=== PATIENT | male | born 1985 | race Caucasian/White ===

== ENCOUNTER 2019-03-19 19:37 | Inpatient (IN) | payer MEDICAID ==
[2019-03-19] MEDS ORDERED: Sodium Chloride 0.9% 10 ML Syringe FLUSH PRN (19:54)
[2019-03-19] MEDS ORDERED: Vancomycin 1.75 GM in Sodium Chloride 0.9% 500 ML IV ONE (19:58)
[2019-03-19] MEDS ORDERED: Ondansetron 4 MG/2 ML SDV IVPUSH ONE (20:00)
[2019-03-19] MEDS ORDERED: Iopamidol 612 MG/ML 100 ML Bottle IVPUSH ONE (20:02)
[2019-03-19] MEDS ORDERED: Diatrizoate Meglumine/Diatrizoate Sodium 37% 120 ML Bottle PO ONE (20:02)
--- NOTE | 2019-03-19 20:08 | EDM.PDOC ---
ED HPI GENERAL MEDICAL PROBLEM - General Chief Complaint: Abdominal Pain Stated Complaint: [facility] Time Seen by Provider: 03/19/19 19:42 Source of Information: Reports: Patient, EMS History Limitations: Reports: No Limitations - History of Present Illness INITIAL COMMENTS - FREE TEXT/NARRATIVE: The patient presents by [facility] for nausea and vomiting. He says this all started a couple weeks ago. He said he ate some enchiladas 2 weeks ago and then he developed nausea, vomiting, and upper abdominal pain. He has not been able to keep much down for the past couple of weeks. He has shortness of breath. He has some congestion. He has a slight cough. He has a low grade temp. He has hypoxia and he has shortness of breath. He has no chest pain. He does have pain to the epigastric area. He has no dysuria or hematuria. He says he is still making urine. His lips are dry. He has erythema and edema to his right forearm and left foot. 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 He has not injected since. Onset: Gradual Duration: Week(s): (2) Location: Reports: Abdomen Quality: Reports: Ache Severity: Moderate Improves with: Reports: None Worsens with: Reports: None Associated Symptoms: Reports: Cough, Fever/Chills, Shortness of Breath. Denies : Confusion, Chest Pain, Headaches, Nausea/Vomiting Middle Abdominal Pain Score (Numeric/FACES): 10 - Related Data Allergies Allergy/AdvReac Type Severity Reaction Status Date / Time No Known Allergies Allergy Verified 03/19/19 19:44 Home Meds: Home Meds . [No Known Home Meds] 03/19/19 [History] Past Medical History - Past Health History Medical/Surgical History: Denies Medical/Surgical History Social & Family History - Tobacco Use Smoking Status *Q: Current Every Day Smoker Years of Tobacco use: 13 Packs/Tins Daily: 0.5 - Alcohol Use Days Per Week of Alcohol Use: 2 Number of Drinks Per Day: 5 Total Drinks Per Week: 10 - Recreational Drug Use Recreational Drug Use: No ED ROS GENERAL - Review of Systems Review Of Systems: See Below Constitutional: Reports: Fever, Chills HEENT: Reports: Other (congestion) Respiratory: Reports: Shortness of Breath, Cough Cardiovascular: Reports: No Symptoms Endocrine: Reports: No Symptoms GI/Abdominal: Reports: Abdominal Pain, Nausea, Vomiting. Denies: Diarrhea : Reports: No Symptoms Musculoskeletal: Reports: No Symptoms Skin: Reports: No Symptoms ED EXAM, GI/ABD - Physical Exam Exam: See Below Exam Limited By: No Limitations General Appearance: Alert, Mild Distress Ears: Normal External Exam Nose: Normal Inspection Throat/Mouth: Other (Dry mucus membranes) Head: Atraumatic, Normocephalic Neck: Normal Inspection Respiratory/Chest: No Respiratory Distress, Decreased Breath Sounds Cardiovascular: No Edema, No Murmur, Tachycardia GI/Abdominal Exam: Soft, No Organomegaly, No Mass, Tender (Moderate tenderness to the epigastric region) Back Exam: Normal Inspection Extremities: Other (Erythema to the right forearm and left anterior foot) Neurological: Alert, Oriented, No Motor/Sensory Deficits Course - Vital Signs Last Recorded V/S: Last Vital Signs Temp 102.1 F H 03/19/19 22:21 Pulse 124 H 03/19/19 19:42 Resp 16 03/19/19 19:42 BP 128/95 H 03/19/19 19:42 Pulse Ox 92 L 03/19/19 21:04 - Orders/Labs/Meds Orders: Active Orders 24 hr Category Date Time Status EKG Documentation Completion [RC] ASDIRECTED Care 03/19/19 21:21 Active Oxygen Therapy, ED [RC] STAT Care 03/19/19 19:55 Active Abdomen Pelvis wo Cont [CT] Stat Exams 03/19/19 20:00 Taken Chest 2V [CR] Stat Exams 03/19/19 19:54 Taken CULTURE BLOOD [BC] Stat Lab 03/19/19 20:47 Received CULTURE BLOOD [BC] Stat Lab 03/19/19 21:13 Received Lactated Ringers [Ringers, Lactated] 1,000 ml Med 03/19/19 22:45 Active IV ASDIRECTED Sodium Chloride 0.9% [Saline Flush] Med 03/19/19 19:54 Active 10 ml FLUSH ASDIRECTED PRN Blood Culture x2 Reflex Set [OM.PC] Stat Oth 03/19/19 19:54 Ordered Saline Lock Insert [OM.PC] Stat Oth 03/19/19 19:54 Ordered Severe Sepsis Onset Time [OM.PC] Stat Oth 03/19/19 19:54 Ordered EKG 12 Lead [EK] Stat Ther 03/19/19 21:20 Ordered Medication Orders Lactated Ringer's (Ringers, Lactated) 1,000 mls @ 150 mls/hr IV ASDIRECTED JUANA Last Admin: 03/19/19 22:56 Dose: 150 mls/hr Sodium Chloride (Saline Flush) 10 ml FLUSH ASDIRECTED PRN PRN Reason: Keep Vein Open Last Admin: 03/19/19 21:04 Dose: 10 ml Labs: Laboratory Tests 03/19/19 03/19/19 03/19/19 Range/Units 20:30 20:30 20:30 WBC 24.84 H (4.23-9.07) K/mm3 RBC 4.56 L (4.63-6.08) M/mm3 Hgb 14.1 (13.7-17.5) gm/dl Hct 38.5 L (40.1-51.0) % MCV 84.4 (79.0-92.2) fl MCH 30.9 (25.7-32.2) pg MCHC 36.6 H (32.2-35.5) g/dl RDW Std Deviation 40.4 (35.1-43.9) fL Plt Count 106 L (163-337) K/mm3 MPV 13.0 H (9.4-12.3) fl Neut % (Auto) 90.1 H (34.0-67.9) % Lymph % (Auto) 3.5 L (21.8-53.1) % [place] % (Auto) 4.1 L (5.3-12.2) % Eos % (Auto) 0 L (0.8-7.0) Baso % (Auto) 0.2 (0.1-1.2) % Neut # (Auto) 22.36 H (1.78-5.38) K/mm3 Lymph # (Auto) 0.87 L (1.32-3.57) K/mm3 [place] # (Auto) 1.02 H (0.30-0.82) K/mm3 Eos # (Auto) 0.00 L (0.04-0.54) K/mm3 Baso # (Auto) 0.06 (0.01-0.08) K/mm3 Manual Slide Review Abnormal smear Sodium 129 L (136-145) mEq/L Potassium 2.9 L (3.5-5.1) mEq/L Chloride 95 L (98-107) mEq/L Carbon Dioxide 19 L (21-32) mEq/L Anion Gap 17.9 H (5-15) BUN 92 H (7-18) mg/dL Creatinine 2.6 H (0.7-1.3) mg/dL Est Cr Clr Drug Dosing 40.41 mL/min Estimated GFR (MDRD) 29 (>60) mL/min BUN/Creatinine Ratio 35.4 H (14-18) Glucose 180 H (74-106) mg/dL Lactic Acid 3.8 H (0.4-2.0) mmol/L Calcium 7.2 L (8.5-10.1) mg/dL Total Bilirubin 2.4 H (0.2-1.0) mg/dL AST 209 H (15-37) U/L ALT 110 H (16-63) U/L Alkaline Phosphatase 176 H (46-116) U/L Total Protein 7.3 (6.4-8.2) g/dl Albumin 2.2 L (3.4-5.0) g/dl Globulin 5.1 gm/dL Albumin/Globulin Ratio 0.4 L (1-2) Lipase 789 H (73-393) U/L Urine Color (Yellow) Urine Appearance (Clear) Urine pH (5.0-8.0) Ur Specific [place] (1.005-1.030) Urine Protein (Negative) Urine Glucose (UA) (Negative) Urine Ketones (Negative) Urine Occult Blood (Negative) Urine Nitrite (Negative) Urine Bilirubin (Negative) Urine Urobilinogen (0.2-1.0) Ur Leukocyte Esterase (Negative) Urine RBC (0-5) /hpf Urine WBC (0-5) /hpf Ur Squamous Epith Cells (0-5) /hpf Amorphous Sediment (NOT SEEN) /hpf Urine Bacteria (FEW) /hpf Hyaline Casts (0-5) /lpf Urine Mucus (FEW) /hpf 03/19/19 Range/Units 21:45 WBC (4.23-9.07) K/mm3 RBC (4.63-6.08) M/mm3 Hgb (13.7-17.5) gm/dl Hct (40.1-51.0) % MCV (79.0-92.2) fl MCH (25.7-32.2) pg MCHC (32.2-35.5) g/dl RDW Std Deviation (35.1-43.9) fL Plt Count (163-337) K/mm3 MPV (9.4-12.3) fl Neut % (Auto) (34.0-67.9) % Lymph % (Auto) (21.8-53.1) % [place] % (Auto) (5.3-12.2) % Eos % (Auto) (0.8-7.0) Baso % (Auto) (0.1-1.2) % Neut # (Auto) (1.78-5.38) K/mm3 Lymph # (Auto) (1.32-3.57) K/mm3 [place] # (Auto) (0.30-0.82) K/mm3 Eos # (Auto) (0.04-0.54) K/mm3 Baso # (Auto) (0.01-0.08) K/mm3 Manual Slide Review Sodium (136-145) mEq/L Potassium (3.5-5.1) mEq/L Chloride (98-107) mEq/L Carbon Dioxide (21-32) mEq/L Anion Gap (5-15) BUN (7-18) mg/dL Creatinine (0.7-1.3) mg/dL Est Cr Clr Drug Dosing mL/min Estimated GFR (MDRD) (>60) mL/min BUN/Creatinine Ratio (14-18) Glucose (74-106) mg/dL Lactic Acid (0.4-2.0) mmol/L Calcium (8.5-10.1) mg/dL Total Bilirubin (0.2-1.0) mg/dL AST (15-37) U/L ALT (16-63) U/L Alkaline Phosphatase (46-116) U/L Total Protein (6.4-8.2) g/dl Albumin (3.4-5.0) g/dl Globulin gm/dL Albumin/Globulin Ratio (1-2) Lipase (73-393) U/L Urine Color Yellow (Yellow) Urine Appearance Slt cloudy H (Clear) Urine pH 5.5 (5.0-8.0) Ur Specific [place] 1.020 (1.005-1.030) Urine Protein 1+ H (Negative) Urine Glucose (UA) Negative (Negative) Urine Ketones Negative (Negative) Urine Occult Blood 2+ H (Negative) Urine Nitrite Negative (Negative) Urine Bilirubin Negative (Negative) Urine Urobilinogen 1.0 (0.2-1.0) Ur Leukocyte Esterase Negative (Negative) Urine RBC 0-5 (0-5) /hpf Urine WBC 0-5 (0-5) /hpf Ur Squamous Epith Cells 0-5 (0-5) /hpf Amorphous Sediment Moderate H (NOT SEEN) /hpf Urine Bacteria Moderate H (FEW) /hpf Hyaline Casts 0-5 (0-5) /lpf Urine Mucus Few (FEW) /hpf Meds: Medications Generic Name Dose Route Start Last Admin Trade Name Freq PRN Reason Stop Dose Admin Lactated Ringer's 1,000 mls @ 150 mls/hr 03/19/19 22:45 03/19/19 22:56 Ringers, Lactated IV 150 mls/hr ASDIRECTED JUANA Administration Sodium Chloride 10 ml 03/19/19 19:54 03/19/19 21:04 Saline Flush FLUSH 10 ml ASDIRECTED PRN Administration Keep Vein Open Discontinued Medications Generic Name Dose Route Start Last Admin Trade Name Freq PRN Reason Stop Dose Admin Acetaminophen 975 mg 03/19/19 22:17 03/19/19 22:21 Tylenol PO 03/19/19 22:18 975 mg NOW ONE Administration Diatrizoate Meglum/Diatrizoate Sod 60 ml 03/19/19 20:02 Gastrografin 37% PO 03/19/19 20:03 ONETIME ONE Lactated Ringer's 2,177 mls @ 1,000 mls/hr 03/19/19 19:57 03/19/19 20:30 Ringers, Lactated IV 03/19/19 22:07 1,000 mls/hr .BOLUS ONE Administration Vancomycin HCl 1.75 gm/ Sodium 500 mls @ 250 mls/hr 03/19/19 19:58 03/19/19 20:58 Chloride IV 03/19/19 19:59 250 mls/hr ONETIME ONE Administration Lactated Ringer's 1,000 mls @ 1,000 mls/hr 03/19/19 21:14 03/19/19 21:30 Ringers, Lactated IV 03/19/19 22:13 1,000 mls/hr .BOLUS ONE Administration Potassium Chloride 10 meq/ 100 mls @ 100 mls/hr 03/19/19 21:21 03/19/19 22:08 Premix IV 03/19/19 22:20 100 mls/hr ONETIME ONE Administration Iopamidol 100 ml 03/19/19 20:02 Isovue-300 (61%) IVPUSH 03/19/19 20:03 ONETIME ONE Ondansetron HCl 4 mg 03/19/19 20:00 03/19/19 20:30 Zofran IVPUSH 03/19/19 20:01 4 mg ONETIME ONE Administration - Re-Assessments/Exams Free Text/Narrative Re-Assessment/Exam: 03/19/19 20:12 I ordered oxygen, labs, CXR, IV LR 2,177ml bolus, blood cultures, zofran 4mg IV and vancomycin 1.75grams. 03/19/19 21:18 His WBC was elevated at 28.84. His platelets are low at 106. His Na is low at 129. His K is low at 2.9. His anion gap is elevated at 17.9. His creatinine is elevated at 2.6. His GFR is low at 29. His glucose is 180. His calcium is low at 7.2. His total bili is elevated at 2.4. His AST is elevated at 209. His ALT is elevated at 110. His Alk Phos is elevated at 176. His lipase is elevated at 789. I will order KCL IV. 03/19/19 23:23 His CXR shows bilateral lobe infiltrates. His CT shows nondilated fluid/oral contrast filled small bowel loops. Liquid stool within the colon and rectum. Findings can suggest gastroenteritis/diarrheal disease. No CT findings of acute appendicitis. Hepatosplenomegaly. Small hiatal hernia. Fluid within the distal esophagus. Gastroesophageal reflux. Small right and left pleural effusions. Findings most likely consistent with bilateral lower lobe segmental pneumonia, possibly aspiration pneumonia. He is septic from this. I feel he needs to be admitted. I called Dr Odom and he agreed to the admission. Departure - Departure Time of Disposition: 23:30 Disposition: Home, Self-Care 01 Condition: Good Clinical Impression: Hyponatremia, Hypokalemia, Hypoxia Pneumonia Qualifiers: Pneumonia type: due to unspecified organism Laterality: bilateral Lung location : upper lobe of lung Qualified Code(s): J18.1 - Lobar pneumonia, unspecified organism Sepsis Qualifiers: Sepsis type: sepsis due to unspecified organism Sepsis acute organ dysfunction status: unspecified Qualified Code(s): A41.9 - Sepsis, unspecified organism Abdominal pain Qualifiers: Abdominal location: epigastric Qualified Code(s): R10.13 - Epigastric pain Cellulitis Qualifiers: Site of cellulitis: extremity Site of cellulitis of extremity: lower extremity Laterality: left Qualified Code(s): L03.116 - Cellulitis of left lower limb - Discharge Information Forms: ED Department Discharge - My Orders Last 24 Hours: My Active Orders 03/19/19 19:54 Chest 2V [CR] Stat Sodium Chloride 0.9% [Saline Flush] 10 ml FLUSH ASDIRECTED PRN Blood Culture x2 Reflex Set [OM.PC] Stat Saline Lock Insert [OM.PC] Stat Severe Sepsis Onset Time [OM.PC] Stat 03/19/19 19:55 Oxygen Therapy, ED [RC] STAT 03/19/19 20:00 Abdomen Pelvis wo Cont [CT] Stat 03/19/19 20:47 CULTURE BLOOD [BC] Stat 03/19/19 21:13 CULTURE BLOOD [BC] Stat 03/19/19 21:20 EKG 12 Lead [EK] Stat 03/19/19 21:21 EKG Documentation Completion [RC] ASDIRECTED 03/19/19 22:45 Lactated Ringers [Ringers, Lactated] 1,000 ml IV ASDIRECTED - Assessment/Plan Last 24 Hours: My Active Orders 03/19/19 19:54 Chest 2V [CR] Stat Sodium Chloride 0.9% [Saline Flush] 10 ml FLUSH ASDIRECTED PRN Blood Culture x2 Reflex Set [OM.PC] Stat Saline Lock Insert [OM.PC] Stat Severe Sepsis Onset Time [OM.PC] Stat 03/19/19 19:55 Oxygen Therapy, ED [RC] STAT 03/19/19 20:00 Abdomen Pelvis wo Cont [CT] Stat 03/19/19 20:47 CULTURE BLOOD [BC] Stat 03/19/19 21:13 CULTURE BLOOD [BC] Stat 03/19/19 21:20 EKG 12 Lead [EK] Stat 03/19/19 21:21 EKG Documentation Completion [RC] ASDIRECTED 03/19/19 22:45 Lactated Ringers [Ringers, Lactated] 1,000 ml IV ASDIRECTED
[2019-03-19] MEDS ORDERED: Lactated Ringers 1,000 ML IV ONE (21:14)
[2019-03-19] MEDS ORDERED: Potassium Chloride 10 MEQ in Premix Bag 1 BAG IV ONE (21:21)
[2019-03-19] MEDS ORDERED: Acetaminophen 325 MG Tab PO ONE (22:17)
[2019-03-19] MEDS ORDERED: Lactated Ringers 1,000 ML IV SCH (22:45)
[2019-03-19] MEDS ORDERED: HYDROmorphone 0.5 MG/0.5 ML Syringe IVPUSH ONE (23:43)
[2019-03-20] MEDS ORDERED: LORazepam 2 MG/ML SDV IVPUSH ONE (00:38)
[2019-03-20] MEDS: HYDROmorphone 1 MG/ML Syringe IVPUSH ONE ×2 (00:39→09:12)
[2019-03-20] MEDS: Sodium Chloride 0.9% 1,000 ML IV SCH ×3 (02:36→17:56)
[2019-03-20] MEDS: HYDROmorphone 1 MG/ML Syringe IVPUSH PRN ×5 (05:40→21:46)
--- NOTE | 2019-03-20 07:50 | CR ---
Chest: Two views of the chest were obtained. Comparison: No prior chest imaging. Increased density is seen posteriorly on the lateral view within both lung bases. Upper lungs are clear. Heart size and mediastinum are normal. Bony structures appear within normal limits for the patient's age. Impression: 1. Increased density posteriorly within both lung bases best seen on the lateral view. Findings most likely represent pneumonia. Please correlate. Diagnostic code #3
--- NOTE | 2019-03-20 07:50 | CT ---
CT abdomen and pelvis Technique: Multiple axial sections were obtained from above the dome of the diaphragm inferiorly through the pubic symphysis. Oral contrast is seen. No intravenous contrast was utilized. Comparison: No previous CT abdomen or pelvis studies available. Findings: Areas of consolidation are identified within both posterior lung bases. Noncontrast appearance of the liver shows no focal parenchymal abnormality. Spleen measures at the upper limits of normal at 13.1 cm in length. No focal intrasplenic abnormality is seen. Adrenal glands show no nodule. Pancreas is felt to be within normal limits. Gallbladder is mostly contracted without calcified gallstones being seen. Kidneys show no abnormal calcifications. No ureteral dilatation is seen. Aorta shows no aneurysm. No retroperitoneal adenopathy or mesenteric abnormalities are seen. No pelvic mass or adenopathy is seen. Appendix not definitely visualized. No bowel dilatation is seen. No free fluid or inflammatory change is seen. Fluid is seen within portions of the colon and distal small bowel. Unilateral spondylitic defect noted at L5-S1 on the right side. Minimal spondylolisthesis is seen at L5-S1 by several millimeters. Mild disc space narrowing is noted at L5-S1. Impression: 1. Fluid within the colon and distal small bowel. This can be seen normally as well as with gastroenteritis. 2. Areas of consolidation seen posteriorly within both lung bases most likely due to pneumonia. Please exclude aspiration pneumonia. 3. Spleen size measures at the upper limits of normal at 13.1 cm. 4. Other findings believed to be incidental as noted above. Diagnostic code #3 I agree with preliminary report from [facility], finalized on 03/20/19, 12:08 AM Central Time
[2019-03-20] MEDS ORDERED: Docusate Sodium 100 MG Cap PO PRN (08:22)
[2019-03-20] MEDS ORDERED: Albuterol/Ipratropium 3.0-0.5 MG/3 ML Neb Soln NEB PRN (08:22)
[2019-03-20] MEDS ORDERED: Polyethylene Glycol 3350 Powder 17 GM Packet PO PRN (08:22)
[2019-03-20] MEDS ORDERED: Ondansetron 4 MG/2 ML SDV IV PRN (08:22)
[2019-03-20] MEDS ORDERED: Promethazine 6.25 MG in Sodium Chloride 0.9% 50 ML IV PRN (08:22)
[2019-03-20] MEDS ORDERED: Bisacodyl 5 MG Tab PO PRN (08:22)
[2019-03-20] MEDS ORDERED: Lactated Ringers 1,000 ML IV ONE ×2 (08:26→09:02)
[2019-03-20] MEDS ORDERED: Haloperidol Lactate 5 MG/ML SDV IM PRN (08:27)
[2019-03-20] MEDS ORDERED: cloNIDine 0.1 MG Tab PO PRN (08:27)
--- NOTE | 2019-03-20 08:31 | PCM.HP.2 ---
H&P History of Present Illness - General Date of Service: 03/20/19 Admit Problem/Dx: Admission Diagnosis/Problem Admission Diagnosis/Problem Sepsis Source of Information: Patient, Provider, RN Notes Reviewed History Limitations: Reports: No Limitations - History of Present Illness Initial Comments - Free Text/Narative: This is a young white male with no significant past medical hx/o except for Smoking, Hx/o IVDU and Chronic ETOH User who presented to ED last night for evaluation of abdominal pain associated with nausea and vomiting that started a couple fop weeks ago after eating enchiladas. He states he has not been able to keep anything down. Per secondary sources, he also had some congestion, shortness of breath, epigastric pain, erythema and edema on right forearm/left foot and dry lips. He denies any chest pain or symptoms. He states he used IVD and his last injection was 3 months. He smokes about 1 pack a day and drinks ETOH regularly. His initial work up in ED showed significantly abnormal CBC and Chemistry. His UA was negative for UTI. His LA was 3.8 with a WBC of 24K. His chest x-ray report read as increased density posteriorly within both lungs. His Abdominal/ Pelvis CT scan report read as fluid within the colon and distal small bowel. Patient was admitted to ICU overnight for management of Sepsis. Middle Abdominal Pain Score (Numeric/FACES): 10 Back Pain Score (Numeric/FACES): 6 - Related Data Allergies/Adverse Reactions: Allergies Allergy/AdvReac Type Severity Reaction Status Date / Time No Known Allergies Allergy Verified 03/19/19 19:44 Home Medications: Home Meds . [No Known Home Meds] 03/19/19 [History] Past Medical History - Past Health History Medical/Surgical History: Denies Medical/Surgical History Social & Family History - Tobacco Use Smoking Status *Q: Current Every Day Smoker Years of Tobacco use: 13 Packs/Tins Daily: 0.5 Used Tobacco, but Quit: No Second Hand Smoke Exposure: No - Caffeine Use Caffeine Use: Reports: Soda - Alcohol Use Days Per Week of Alcohol Use: 2 Number of Drinks Per Day: 5 Total Drinks Per Week: 10 - Recreational Drug Use Recreational Drug Use: Yes Drug Use in Last 12 Months: Yes Recreational Drug Type: Reports: Heroin Recreational Drug Use Frequency: Not Used In Over 3 Months H&P Review of Systems - Review of Systems: Review Of Systems: See Below General: Reports: Fever, Chills, Malaise, Weakness, Fatigue HEENT: Reports: No Symptoms Pulmonary: Reports: Pleuritic Chest Pain Cardiovascular: Reports: Edema. Denies: Chest Pain, Dyspnea on Exertion, Lightheadedness Gastrointestinal: Denies: Abdominal Pain, Nausea, Vomiting Genitourinary: Reports: No Symptoms Musculoskeletal: Reports: Arm Pain, Back Pain (severe), Joint Swelling Skin: Reports: Rash, Erythema. Denies: Bruising Psychiatric: Reports: Anxiety. Denies: Mood Lability, Agitation, Cravings, Hallucinations, Suicidal Ideation, Homicidal Ideation, Hallucinations (Auditory) Neurological: Denies: Difficulty Walking, Weakness, Gait Disturbance Hematologic/Lymphatic: Reports: No Symptoms Immunologic: Reports: No Symptoms Exam - Exam Exam: See Below - Vital Signs Vital Signs: Last Vital Signs Temp 37.1 C 03/20/19 08:00 Pulse 106 H 03/20/19 08:00 Resp 24 H 03/20/19 08:00 BP 87/57 L 03/20/19 08:00 Pulse Ox 90 L 03/20/19 08:00 Weight: 68.946 kg - Exam General: Cooperative, Severe Distress, Lethargic HEENT: Hearing Intact, Nares Patent, Normal Nasal Septum, Posterior Pharynx Clear, Pupils Equal, Pupils Reactive. No: Mucosa Moist & [place] Neck: Supple, Trachea Midline Lungs: Normal Respiratory Effort, Decreased Breath Sounds Cardiovascular: Regular Rate, Regular Rhythm, Systolic Murmur GI/Abdominal Exam: Normal Bowel Sounds, Soft, Non-Tender, No Organomegaly, No Distention, No Abnormal Bruit (Male) Exam: Deferred Rectal (Males) Exam: Deferred Back Exam: Muscle Spasm Extremities: Normal Inspection, Normal Range of Motion, Non-Tender, No Pedal Edema, Normal Capillary Refill, Leg Pain, Limited Range of Motion, Increased Warmth, Redness Peripheral Pulses: 2+: Posterior Tibial (L), Posterior Tibial (R), Dorsalis Pedis (L), Dorsalis Pedis (R) Skin: Warm, Dry, Intact Skin Alteration Location (Drawings Not To Scale): 1 - edema, erythema and tender on movement or touch 2 - red, edema, amd tender to touch 3 - red and swollen Neuro Extensive - Mental Status: Normal Mood/Affect, Memory Intact Neuro Extensive - Motor, Sensory, Reflexes: Abnormal Gait, Other (not appropriate at this time) Psychiatric: Anxious, Other (sedated ) - Patient Data Lab Results Last 24 hrs: Laboratory Results - last 24 hr 03/19/19 03/19/19 03/19/19 Range/Units 20:30 20:30 20:30 WBC 24.84 H (4.23-9.07) K/mm3 RBC 4.56 L (4.63-6.08) M/mm3 Hgb 14.1 (13.7-17.5) gm/dl Hct 38.5 L (40.1-51.0) % MCV 84.4 (79.0-92.2) fl MCH 30.9 (25.7-32.2) pg MCHC 36.6 H (32.2-35.5) g/dl RDW Std Deviation 40.4 (35.1-43.9) fL Plt Count 106 L (163-337) K/mm3 MPV 13.0 H (9.4-12.3) fl Neut % (Auto) 90.1 H (34.0-67.9) % Lymph % (Auto) 3.5 L (21.8-53.1) % [place] % (Auto) 4.1 L (5.3-12.2) % Eos % (Auto) 0 L (0.8-7.0) Baso % (Auto) 0.2 (0.1-1.2) % Neut # (Auto) 22.36 H (1.78-5.38) K/mm3 Lymph # (Auto) 0.87 L (1.32-3.57) K/mm3 [place] # (Auto) 1.02 H (0.30-0.82) K/mm3 Eos # (Auto) 0.00 L (0.04-0.54) K/mm3 Baso # (Auto) 0.06 (0.01-0.08) K/mm3 Manual Slide Review Abnormal smear Sodium 129 L (136-145) mEq/L Potassium 2.9 L (3.5-5.1) mEq/L Chloride 95 L (98-107) mEq/L Carbon Dioxide 19 L (21-32) mEq/L Anion Gap 17.9 H (5-15) BUN 92 H (7-18) mg/dL Creatinine 2.6 H (0.7-1.3) mg/dL Est Cr Clr Drug Dosing 40.41 mL/min Estimated GFR (MDRD) 29 (>60) mL/min BUN/Creatinine Ratio 35.4 H (14-18) Glucose 180 H (74-106) mg/dL Lactic Acid 3.8 H (0.4-2.0) mmol/L Calcium 7.2 L (8.5-10.1) mg/dL Total Bilirubin 2.4 H (0.2-1.0) mg/dL AST 209 H (15-37) U/L ALT 110 H (16-63) U/L Alkaline Phosphatase 176 H (46-116) U/L Total Protein 7.3 (6.4-8.2) g/dl Albumin 2.2 L (3.4-5.0) g/dl Globulin 5.1 gm/dL Albumin/Globulin Ratio 0.4 L (1-2) Lipase 789 H (73-393) U/L Urine Color (Yellow) Urine Appearance (Clear) Urine pH (5.0-8.0) Ur Specific [place] (1.005-1.030) Urine Protein (Negative) Urine Glucose (UA) (Negative) Urine Ketones (Negative) Urine Occult Blood (Negative) Urine Nitrite (Negative) Urine Bilirubin (Negative) Urine Urobilinogen (0.2-1.0) Ur Leukocyte Esterase (Negative) Urine RBC (0-5) /hpf Urine WBC (0-5) /hpf Ur Squamous Epith Cells (0-5) /hpf Amorphous Sediment (NOT SEEN) /hpf Urine Bacteria (FEW) /hpf Hyaline Casts (0-5) /lpf Urine Mucus (FEW) /hpf 03/19/19 Range/Units 21:45 WBC (4.23-9.07) K/mm3 RBC (4.63-6.08) M/mm3 Hgb (13.7-17.5) gm/dl Hct (40.1-51.0) % MCV (79.0-92.2) fl MCH (25.7-32.2) pg MCHC (32.2-35.5) g/dl RDW Std Deviation (35.1-43.9) fL Plt Count (163-337) K/mm3 MPV (9.4-12.3) fl Neut % (Auto) (34.0-67.9) % Lymph % (Auto) (21.8-53.1) % [place] % (Auto) (5.3-12.2) % Eos % (Auto) (0.8-7.0) Baso % (Auto) (0.1-1.2) % Neut # (Auto) (1.78-5.38) K/mm3 Lymph # (Auto) (1.32-3.57) K/mm3 [place] # (Auto) (0.30-0.82) K/mm3 Eos # (Auto) (0.04-0.54) K/mm3 Baso # (Auto) (0.01-0.08) K/mm3 Manual Slide Review Sodium (136-145) mEq/L Potassium (3.5-5.1) mEq/L Chloride (98-107) mEq/L Carbon Dioxide (21-32) mEq/L Anion Gap (5-15) BUN (7-18) mg/dL Creatinine (0.7-1.3) mg/dL Est Cr Clr Drug Dosing mL/min Estimated GFR (MDRD) (>60) mL/min BUN/Creatinine Ratio (14-18) Glucose (74-106) mg/dL Lactic Acid (0.4-2.0) mmol/L Calcium (8.5-10.1) mg/dL Total Bilirubin (0.2-1.0) mg/dL AST (15-37) U/L ALT (16-63) U/L Alkaline Phosphatase (46-116) U/L Total Protein (6.4-8.2) g/dl Albumin (3.4-5.0) g/dl Globulin gm/dL Albumin/Globulin Ratio (1-2) Lipase (73-393) U/L Urine Color Yellow (Yellow) Urine Appearance Slt cloudy H (Clear) Urine pH 5.5 (5.0-8.0) Ur Specific [place] 1.020 (1.005-1.030) Urine Protein 1+ H (Negative) Urine Glucose (UA) Negative (Negative) Urine Ketones Negative (Negative) Urine Occult Blood 2+ H (Negative) Urine Nitrite Negative (Negative) Urine Bilirubin Negative (Negative) Urine Urobilinogen 1.0 (0.2-1.0) Ur Leukocyte Esterase Negative (Negative) Urine RBC 0-5 (0-5) /hpf Urine WBC 0-5 (0-5) /hpf Ur Squamous Epith Cells 0-5 (0-5) /hpf Amorphous Sediment Moderate H (NOT SEEN) /hpf Urine Bacteria Moderate H (FEW) /hpf Hyaline Casts 0-5 (0-5) /lpf Urine Mucus Few (FEW) /hpf Result Diagrams: 03/21/19 05:05 03/21/19 05:05 Minor Results Last 24 hrs: Microbiology 03/20/19 05:30 Gram Stain - Final Sputum - Expectorated Problem List Initiated/Reviewed/Updated: Yes Orders Last 24hrs: Active Orders 24 hr Category Date Time Status Patient Status [ADT] Routine ADT 03/19/19 23:41 Active Antiembolic Devices [RC] PER UNIT ROUTINE Care 03/20/19 08:23 Active Bedrest Bathroom Privileges [RC] ASDIRECTED Care 03/20/19 02:33 Active CIWAA Assessment [RC] Q15M Care 03/20/19 08:27 Ordered CIWAA Assessment [RC] Q1H Care 03/20/19 08:27 Ordered CIWAA Assessment [RC] Q30M Care 03/20/19 08:27 Ordered CIWAA Assessment [RC] Q4H Care 03/20/19 08:27 Ordered Cardiac Monitoring [RC] CONTINUOUS Care 03/20/19 08:22 Active Height and Weight [RC] DAILY Care 03/20/19 08:22 Active Intake and Output [RC] QSHIFT Care 03/20/19 08:22 Active Notify Provider [RC] PRN Care 03/20/19 08:27 Ordered Oxygen Therapy [RC] ASDIRECTED Care 03/20/19 04:17 Active Oxygen Therapy [RC] PRN Care 03/20/19 08:22 Active Oxygen Therapy, ED [RC] STAT Care 03/19/19 19:55 Active RT Aerosol Therapy [RC] ASDIRECTED Care 03/20/19 08:23 Active Up With Assistance [RC] ASDIRECTED Care 03/20/19 08:22 Active Up ad Ivelisse [RC] ASDIRECTED Care 03/20/19 08:22 Active VTE/DVT Education [RC] PER UNIT ROUTINE Care 03/20/19 08:22 Active Vital Signs [RC] Q4H Care 03/20/19 08:22 Active Consult to Case Management/Spinning Frame Changer [CONS] Cons 03/20/19 08:22 Active Routine Consult to Spiritual Care [CONS] Routine Cons 03/20/19 08:22 Active OT Evaluation and Treatment [CONS] Routine Cons 03/20/19 08:22 Active PT Evaluation and Treatment [CONS] Routine Cons 03/20/19 08:22 Active Regular Diet [DIET] Diet 03/20/19 Breakfast Active Retroperitoneal Comp [US] Routine Exams 03/20/19 08:30 Ordered BASIC METABOLIC PANEL,BMP [CHEM] AM Lab 03/21/19 05:11 Ordered BASIC METABOLIC PANEL,BMP [CHEM] AM Lab 03/22/19 05:11 Ordered BASIC METABOLIC PANEL,BMP [CHEM] AM Lab 03/23/19 05:11 Ordered BASIC METABOLIC PANEL,BMP [CHEM] AM Lab 03/24/19 05:11 Ordered BASIC METABOLIC PANEL,BMP [CHEM] AM Lab 03/25/19 05:11 Ordered BASIC METABOLIC PANEL,BMP [CHEM] Routine Lab 03/20/19 08:22 Stop Req C-REACTIVE PROTEIN [CHEM] AM Lab 03/21/19 05:11 Ordered C-REACTIVE PROTEIN [CHEM] AM Lab 03/22/19 05:11 Ordered C-REACTIVE PROTEIN [CHEM] AM Lab 03/23/19 05:11 Ordered C-REACTIVE PROTEIN [CHEM] AM Lab 03/24/19 05:11 Ordered C-REACTIVE PROTEIN [CHEM] AM Lab 03/25/19 05:11 Ordered C-REACTIVE PROTEIN [CHEM] Routine Lab 03/20/19 08:22 Ordered CBC WITH AUTO DIFF [HEME] AM Lab 03/21/19 05:11 Ordered CBC WITH AUTO DIFF [HEME] AM Lab 03/22/19 05:11 Ordered CBC WITH AUTO DIFF [HEME] AM Lab 03/23/19 05:11 Ordered CBC WITH AUTO DIFF [HEME] AM Lab 03/24/19 05:11 Ordered CBC WITH AUTO DIFF [HEME] AM Lab 03/25/19 05:11 Ordered CBC WITH AUTO DIFF [HEME] Routine Lab 03/20/19 08:22 Ordered COMPREHENSIVE METABOLIC PN,CMP [CHEM] AM Lab 03/21/19 05:11 Ordered COMPREHENSIVE METABOLIC PN,CMP [CHEM] AM Lab 03/22/19 05:11 Ordered COMPREHENSIVE METABOLIC PN,CMP [CHEM] AM Lab 03/23/19 05:11 Ordered COMPREHENSIVE METABOLIC PN,CMP [CHEM] AM Lab 03/24/19 05:11 Ordered COMPREHENSIVE METABOLIC PN,CMP [CHEM] AM Lab 03/25/19 05:11 Ordered CULTURE BLOOD [BC] Stat Lab 03/19/19 20:47 Received CULTURE BLOOD [BC] Stat Lab 03/19/19 21:13 Received CULTURE SPUTUM + SMEAR [RM] Routine Lab 03/20/19 05:30 Results DRUG SCR 10 W REF CONF SERUM [REF] Stat Lab 03/20/19 08:17 Ordered LACTATE SEPSIS W/ REFLEX [CHEM] Q4H Lab 03/20/19 08:25 Ordered LACTATE SEPSIS W/ REFLEX [CHEM] Q4H Lab 03/20/19 12:25 Ordered LACTATE SEPSIS W/ REFLEX [CHEM] Q4H Lab 03/20/19 16:25 Ordered MAGNESIUM [CHEM] AM Lab 03/21/19 05:11 Ordered MAGNESIUM [CHEM] AM Lab 03/22/19 05:11 Ordered MAGNESIUM [CHEM] AM Lab 03/23/19 05:11 Ordered MAGNESIUM [CHEM] AM Lab 03/24/19 05:11 Ordered MAGNESIUM [CHEM] AM Lab 03/25/19 05:11 Ordered MAGNESIUM [CHEM] Routine Lab 03/20/19 08:22 Ordered PROCALCITONIN [REF] Stat Lab 03/20/19 08:26 Ordered Acetaminophen [Tylenol] Med 03/20/19 02:32 Active 975 mg PO Q4H PRN Albuterol/Ipratropium [DuoNeb 3.0-0.5 MG/3 ML] Med 03/20/19 08:22 Ordered 3 ml NEB Q4H PRN Bisacodyl [Dulcolax] Med 03/20/19 08:22 Ordered 5 mg PO DAILY PRN Docusate Sodium [Colace] Med 03/20/19 08:22 Ordered 100 mg PO BID PRN Docusate Sodium/Sennosides [Senna Plus] Med 03/20/19 08:22 Ordered 1 tab PO BID PRN Folic Acid Med 03/20/19 09:00 Ordered 1 mg PO DAILY HYDROmorphone [Dilaudid] Med 03/20/19 05:32 Active 1 mg IVPUSH Q4H PRN Haloperidol Lactate [Haldol] Med 03/20/19 08:27 Ordered 2 mg IM Q4H PRN LORazepam [Ativan] Med 03/20/19 08:22 Ordered 1 mg IV Q6H PRN Lactated Ringers [Ringers, Lactated] 1,000 ml Med 03/20/19 08:26 Ordered IV .BOLUS Lactated Ringers [Ringers, Lactated] 1,000 ml Med 03/19/19 22:45 Active IV ASDIRECTED Multivitamins,Therapeutic [Thera] Med 03/20/19 09:00 Ordered 1 each PO DAILY Nicotine [Habitrol] Med 03/20/19 09:00 Ordered 21 mg TRDERM DAILY Ondansetron [Zofran] Med 03/20/19 08:22 Ordered 4 mg IV Q6H PRN Pantoprazole [ProTONIX IV] Med 03/20/19 09:00 Ordered 40 mg IV Q12HR Pharmacy to Dose - Vancomycin Med 03/20/19 08:30 Ordered 1 dose .XX ASDIRECTED Piperacillin/Tazobactam [Piperacil-Tazobact] 4.5 gm Med 03/20/19 08:30 Ordered Sodium Chloride 0.9% [Normal Saline] 100 ml IV Q8H Polyethylene Glycol 3350 [MiraLAX] Med 03/20/19 08:22 Ordered 17 gm PO DAILY PRN Promethazine [Phenergan] 6.25 mg Med 03/20/19 08:22 Ordered Sodium Chloride 0.9% [Normal Saline] 50 ml IV Q6H Sodium Chloride 0.9% [Normal Saline] 1,000 ml Med 03/20/19 02:30 Active IV ASDIRECTED Sodium Chloride 0.9% [Saline Flush] Med 03/19/19 19:54 Active 10 ml FLUSH ASDIRECTED PRN Thiamine [Vitamin B-1] Med 03/20/19 09:00 Ordered 100 mg PO DAILY Vancomycin 1.75 gm Med 03/20/19 21:00 Pending Sodium Chloride 0.9% [Normal Saline] 500 ml IV Q24H chlordiazePOXIDE [Librium] Med 03/20/19 08:27 Ordered 25 mg PO Q8H PRN cloNIDine [Catapres] Med 03/20/19 08:27 Ordered 0.1 mg PO Q4H PRN oxyCODONE Med 03/20/19 08:22 Ordered 5 mg PO Q4H PRN Blood Culture x2 Reflex Set [OM.PC] Stat Oth 03/19/19 19:54 Ordered Saline Lock Insert [OM.PC] Stat Ot 03/19/19 19:54 Ordered Seizure Precautions [OM.PC] Routine Oth 03/20/19 08:27 Ordered Sequential Compression Device [OM.PC] Per Unit Routine Oth 03/20/19 08:22 Ordered Severe Sepsis Onset Time [OM.PC] Stat Ot 03/19/19 19:54 Ordered Code Status [Resuscitation Status] Routine Resus Stat 03/20/19 02:51 Ordered EKG 12 Lead [EK] Stat Ther 03/19/19 21:20 Ordered Medication Orders Acetaminophen (Tylenol) 975 mg PO Q4H PRN PRN Reason: Pain/Fever Albuterol/Ipratropium (Duoneb 3.0-0.5 Mg/3 Ml) 3 ml NEB Q4H PRN PRN Reason: Shortness Of Breath/wheezing Bisacodyl (Dulcolax) 5 mg PO DAILY PRN PRN Reason: Constipation Chlordiazepoxide HCl (Librium) 25 mg PO Q8H PRN PRN Reason: Withdrawal Symptoms Clonidine HCl (Catapres) 0.1 mg PO Q4H PRN PRN Reason: Agitation Docusate Sodium (Colace) 100 mg PO BID PRN PRN Reason: Constipation Folic Acid (Folic Acid) 1 mg PO DAILY [facility] Stop: 03/22/19 09:01 Haloperidol Lactate (Haldol) 2 mg IM Q4H PRN PRN Reason: Agitation Hydromorphone HCl (Dilaudid) 1 mg IVPUSH Q4H PRN PRN Reason: Pain Last Admin: 03/20/19 05:40 Dose: 1 mg Lactated Ringer's (Ringers, Lactated) 1,000 mls @ 150 mls/hr IV ASDIRECTED [facility] Last Admin: 03/19/19 22:56 Dose: 150 mls/hr Sodium Chloride (Normal Saline) 1,000 mls @ 100 mls/hr IV ASDIRECTED [facility] Last Admin: 03/20/19 02:36 Dose: 100 mls/hr Vancomycin HCl 1.75 gm/ Sodium (Chloride) 500 mls @ 250 mls/hr IV Q24H [facility] Promethazine HCl 6.25 mg/ (Sodium Chloride) 50.25 mls @ 100 mls/hr IV Q6H PRN PRN Reason: Nausea/Vomiting Lactated Ringer's (Ringers, Lactated) 1,000 mls @ 999 mls/hr IV .BOLUS ONE Stop: 03/20/19 09:26 Piperacillin Sod/Tazobactam (Sod 4.5 gm/ Sodium Chloride) 100 mls @ 25 mls/hr IV Q8H [facility] Lorazepam (Ativan) 1 mg IV Q6H PRN PRN Reason: Anxiety Multivitamins (Thera) 1 each PO DAILY [facility] Nicotine (Habitrol) 21 mg TRDERM DAILY [facility] Ondansetron HCl (Zofran) 4 mg IV Q6H PRN PRN Reason: Nausea/Vomiting Oxycodone HCl (Oxycodone) 5 mg PO Q4H PRN PRN Reason: Pain (moderate 4-6) Pantoprazole Sodium (Protonix Iv) 40 mg IV Q12HR [facility] Polyethylene Glycol (Miralax) 17 gm PO DAILY PRN PRN Reason: Constipation Senna/Docusate Sodium (Senna Plus) 1 tab PO BID PRN PRN Reason: Constipation Sodium Chloride (Saline Flush) 10 ml FLUSH ASDIRECTED PRN PRN Reason: Keep Vein Open Last Admin: 03/19/19 21:04 Dose: 10 ml Thiamine HCl (Vitamin B-1) 100 mg PO DAILY [facility] Vancomycin HCl (Pharmacy To Dose - Vancomycin) 1 dose .XX ASDIRECTED [facility] Assessment/Plan Comment:: Assessment: Acute: Septic Shock - 2/2 Severe Sepsis from CAP, Cellulitis, Pancreatitis and Gastroenteritis - Received initial treatment in ED - Was only on IV vancomycin - Significantly Hypotensive and failed volume resuscitation - Levophed drip-titrate to keep MAP at 65 or high - Cortisol level then start Solucortef 100 mg IVP Q6H - Continue with LR at 150 cc/hr - [place] catheter to monitor intake/output - Sepsis treatment: BS antibiotic for pharmacy to dose and help with management - IV access line and Arterial line Probable Bacteremia - Cannot r/o Infective Endocarditis - Has hx/o IVDU and Severe Sepsis - Stat 2D echo to r/o vegetations - IV ATBs with GP and GN coverage - Awaiting blood cultures CAP - CT scan report read as areas of consolidation seen posteriorly with both lungs - Sputum Culture, Mycoplasma/Strep Pneumonia Ag - Decongestant/Expectorant - IS as directed - Serial CXR as indicated Cellulitis - Left Foot and Possible B/L Elbows - Denies using left foot as injection site - Admits to using IVDU - Last IVDU was 3 moths ago - WBC of 24.84 and CRP of 22.3 - IV Vancomycin for pharmacy to dose Gastroenteritis - Likely 2/2 Food Poisoning - Got sick after eating enchiladas - CT scan report read as fluid within the colon and distal small bowel- normally seen with gastroenteritis - NPO for now-consider clear liquid diet Thrombocytopenia - Platelet of 106 - No baseline for comparison - Likely 2/2 chronic ETOH use - Avoid Heparin for now Hyponatremia - Likely 2/2 Sepsis and Poor Intake - Na of 129 - Expect to Improved with Hydration - Monitor Acute Renal Failure, Non-Oliguric - BUN of 91 and Cr of 2.6 - Likely from ATN due to Septic Shock - All electrolytes were abnormal - Avoid nephrotoxic agents - Aggressive Iv hydration and Renal U/S to r/o Obstructive Uropathy E-lytes Abnormality - Hypokalemia, K of 2.9 - Hypochloremia, Cl of 95 - Hypocalcemia, Ca of 7.2 - 2/2 ARF - Replete and monitor Increased AG Metabolic Acidosis - LA of 3.8 and AH of 17.9 - 2/2 Acute Renal Failure and Septic Shock - Expect to improve with Aggressive Hydration - Consider Bicarb infusion Transaminitis - AST of 209, ALT of 110 - Has been drinking ETOH recently - Combined ETOH and Septic Shock - Monitor Pancreatitis - Likely 2/2 ETOH - Lipase of 879 - NPO for now Chronic ETOH User - Unknown quantity how much he drinks a day - CIWAA protocol plus my adjunct medication - Folic Acid, Thiamine, and MVI Hemoptysis/Hematemesis - One time episode - Has hx/o Chronic ETOH Use - PPI drip Chronic: Active Smoker and ETOH User Plan: Admitted for ICU overnight Sepsis treatment Serial LA and Procal level Aggressive Iv hydration X-ray on b/l forearm and elbow Renal U/S and head CT scan Head CT scan r/o stroke Nicotine Patch Daily DVT/GI prophylaxis SCDs for now: Anti-coags are contraindicated due to low platelets and significantly reduced renal function NPO for now but may consider clear liquids diet SW/Cm for d/c planning Code status: full Prognosis critical-seriously ill; may consider transfer if he does not improve
[2019-03-20] MEDS ORDERED: Pantoprazole 40 MG Tab.CR PO SCH (09:00)
[2019-03-20] MEDS ORDERED: Piperacillin/Tazobactam 4.5 GM in Sodium Chloride 0.9% 100 ML IV ONE (09:00)
[2019-03-20] MEDS: LORazepam 2 MG/ML SDV IV PRN (09:06)
[2019-03-20] MEDS ORDERED: Vancomycin 1.75 GM in Sodium Chloride 0.9% 500 ML IV SCH ×2 (09:15→21:00)
[2019-03-20] MEDS ORDERED: Gentamicin 70 MG in Sodium Chloride 0.9% 100 ML IV SCH (09:45)
[2019-03-20] MEDS: tiZANidine 4 MG Tab PO PRN (09:54)
[2019-03-20] MEDS: chlordiazePOXIDE 25 MG Cap PO PRN (10:00)
[2019-03-20] MEDS: Nicotine 21 MG/24 Hr Patch TRDERM SCH (10:25)
[2019-03-20] MEDS: Folic Acid 1 MG Tab PO SCH (10:31)
[2019-03-20] MEDS: Thiamine 100 MG Tab PO SCH (10:31)
[2019-03-20] MEDS: Multivitamins,Therapeutic Tab PO SCH (10:31)
--- NOTE | 2019-03-20 10:50 | US ---
Renal ultrasound: Multiple real-time images of the kidneys were obtained. Comparison: No previous renal ultrasound, previous CT abdomen and pelvis exam performed on 03/19/19. Kidneys show no hydronephrosis or mass. Cortical thickness is preserved. No shadowing calculi are seen. Resistivity indices are borderline within both kidneys suggesting early medical renal disease. Right kidney length is 12.5 cm and left kidney length is 12.5 cm. Prevoid bladder volume is 524 mL, patient was not able to void this amount Impression: 1. Borderline resistivity indices most likely due to early medical renal disease. 2. Prevoid bladder volume as noted above, patient not able to void this amount. 3. Other portions of the renal ultrasound study are unremarkable. Diagnostic code #3
[2019-03-20] MEDS ORDERED: Norepinephrine 4 MG in Dextrose 5% in Water 246 ML IV SCH ×2 (11:30)
--- NOTE | 2019-03-20 11:40 | CT ---
Head CT Technique: Multiple axial sections through the brain were obtained. Intravenous contrast was not utilized. Comparison: No prior intracranial imaging is available. Motion artifact is noted on the original scan and study was repeated with some persisting motion being noted. Comparison: No prior intracranial imaging. Findings: Ventricles along with basal cisterns and sulci over the convexities appear within normal limits for the patient's age. No abnormal parenchymal densities are seen. No evidence of intracranial hemorrhage. No midline shift or mass effect is seen. Bone window settings were reviewed which show the visualized paranasal sinuses and mastoid sinuses to appear clear. No acute calvarial abnormality is seen. Impression: 1. Motion artifact which persisted after repeating the exam. Within the limitations imposed by motion, no definite acute intracranial abnormality is appreciated. Diagnostic code #2
--- NOTE | 2019-03-20 11:40 | CR ---
Right forearm: Two views of the right forearm were obtained. Comparison: No previous forearm study. No fracture or other bony abnormality is seen. Impression: 1. No abnormality is appreciated on two-view right forearm study. Diagnostic code #1
--- NOTE | 2019-03-20 11:40 | CR ---
Left forearm: Two views of the left forearm were obtained. Comparison: No prior left elbow study. Old appearing ununited fracture is noted within the tip of the radial styloid process. No acute fracture or other bony abnormality is appreciated. Impression: 1. Old injury as described above. No acute bony abnormality is seen on the left forearm exam. Diagnostic code #2
[2019-03-20] MEDS ORDERED: Calcium Gluconate 10% 1 GM/10 ML SDV IV ONE (13:01)
[2019-03-20] MEDS: Pantoprazole 80 MG in Sodium Chloride 0.9% 100 ML IV SCH ×2 (13:12→23:48)
--- NOTE | 2019-03-20 13:38 | CR ---
Chest: Portable view of the chest was obtained. Comparison: Previous chest x-ray of 03/19/19. Heart size is slightly accentuated from portable technique. Upper mediastinum also accentuated from portable technique. Mild increased density is seen within both lung bases. These densities appear fairly stable from previous exam. Upper lungs are clear. Bony structures are grossly intact. Slightly prominent gas within colon is noted. Impression: 1. Mild increased density within both lung bases which is stable from previous. 2. Nothing acute is otherwise seen when compared to prior chest x-ray. Diagnostic code #3
[2019-03-20] MEDS ORDERED: guaiFENesin/Dextromethorphan 100-10 MG/5 ML Soln 5 ML Cup PO PRN (13:44)
[2019-03-20] MEDS: Calcium Gluconate 10% 1 GM/10 ML SDV IV ONE ×2 (14:03→14:09)
[2019-03-20] MEDS: Hydrocortisone Sodium Succinate 100 MG/2 ML SDV IVPUSH SCH ×2 (16:22→20:36)
[2019-03-20] MEDS ORDERED: Piperacillin/Tazobactam 4.5 GM in Sodium Chloride 0.9% 100 ML IV SCH (17:00)
--- NOTE | 2019-03-20 19:13 | PCM.SN ---
- Free Text/Narrative Note: Briefly seen and examined at bedside. Arterial and Central Access lines have been secured. He looks much better clinically and his pressures have considerably improved.
[2019-03-20] MEDS: Meropenem Premix 500 MG in Premix Bag 1 BAG IV SCH (19:31)
--- NOTE | 2019-03-20 19:32 | CR ---
Chest: Frontal view of the chest was obtained. Comparison: Prior chest x-ray performed earlier on the same day (1:03 PM). Increased density is noted within both lung bases. Heart size and mediastinum are within normal limits for portable technique. Right-sided line is seen which appears to be jugular in location. Tip lies at the right atrial and superior vena cava junction in satisfactory position. No pneumothorax is seen. Impression: 1. Central line with tip lying at the right atrial and superior vena cava junction. No pneumothorax. 2. Continuing increased density within both lung bases. Diagnostic code #3
[2019-03-20] MEDS: oxyCODONE ER 10 MG TAB.ER PO SCH (20:00)
--- NOTE | 2019-03-20 21:11 | PCM.CONS ---
H&P History of Present Illness - General Date of Service: 03/20/19 Admit Problem/Dx: Admission Diagnosis/Problem Admission Diagnosis/Problem Sepsis - History of Present Illness Initial Comments - Free Text/Narative: Mr. Jameson is a 33 yo male with history of IVDU (last used 3 months ago), EtOH abuse who presented with sepsis. The patient reports that two weeks ago he had a lot of alcohol to drink and the next day abdominal pain started. The pain was sharp, located in the upper abdomen and radiating to the back. He had a lot of people over at his residence therefore they took care of him so he did not have do much due to pain. However, symptoms did not resolve so he presented to the ED. During this time, he developed productive cough, bilateral elbow erythema and pain as well as left dorsal foot erythema and pain. Onset of Symptoms: Reports: Sudden, Gradual Duration of Symptoms: Reports: Week(s): (2), Constant, Getting Worse Location: Reports: Abdomen, Back, Other (left foot and bilateral elbows) Quality: Reports: Sharp, Stabbing Severity: Severe Improves with: Reports: None, Immobilization, Medication (opioid pain meds) Worsens with: Reports: Breathing, Movement Context: Reports: Other (alcohol consumption) Associated Symptoms: Reports: Confusion, Cough, Fever/Chills, Headaches, Nausea/ Vomiting, Shortness of Breath Middle Abdominal Pain Score (Numeric/FACES): 10 Back Pain Score (Numeric/FACES): 6 - Related Data Allergies/Adverse Reactions: Allergies Allergy/AdvReac Type Severity Reaction Status Date / Time No Known Allergies Allergy Verified 03/19/19 19:44 Home Medications: Home Meds . [No Known Home Meds] 03/19/19 [History] Past Medical History - Past Health History Medical/Surgical History: Denies Medical/Surgical History Social & Family History - Tobacco Use Smoking Status *Q: Current Every Day Smoker Years of Tobacco use: 13 Packs/Tins Daily: 0.5 Used Tobacco, but Quit: No Second Hand Smoke Exposure: No - Caffeine Use Caffeine Use: Reports: Soda - Alcohol Use Days Per Week of Alcohol Use: 2 Number of Drinks Per Day: 5 Total Drinks Per Week: 10 - Recreational Drug Use Recreational Drug Use: Yes Drug Use in Last 12 Months: Yes Recreational Drug Type: Reports: Heroin Recreational Drug Use Frequency: Not Used In Over 3 Months H&P Review of Systems - Review of Systems: Review Of Systems: See Below General: Reports: Fever, Chills, Malaise HEENT: Reports: No Symptoms Pulmonary: Reports: Cough, Sputum Cardiovascular: Reports: No Symptoms Gastrointestinal: Reports: Abdominal Pain Genitourinary: Reports: No Symptoms Musculoskeletal: Reports: No Symptoms, Foot Pain, Joint Swelling (bilateral elbows), Other (left foot) Skin: Reports: Erythema (left foot) Psychiatric: Reports: No Symptoms Neurological: Reports: No Symptoms Hematologic/Lymphatic: Reports: No Symptoms Immunologic: Reports: No Symptoms Exam - Exam Exam: See Below - Vital Signs Vital Signs: Last Vital Signs Temp 97.6 F 03/20/19 19:00 Pulse 101 H 03/20/19 19:00 Resp 30 H 03/20/19 19:00 BP 111/60 03/20/19 19:00 Pulse Ox 93 L 03/20/19 19:00 Weight: 68.946 kg - Exam Quality Assessment: Supplemental Oxygen General: Alert, Oriented, Cooperative HEENT: Conjunctiva Clear Neck: Supple, Trachea Midline, Full Range of Motion Lungs: Clear to Auscultation, Crackles (mild) Cardiovascular: Regular Rate, Regular Rhythm, Normal S1, Normal S2, Tachycardia , Other (no murmurs) GI/Abdominal Exam: No Abnormal Bruit, No Mass, Pelvis Stable, Distended, Guarding, Rebound, Tender (over the epigastrium,), Other (no hernias, no scars, no skin changes) Peripheral Pulses: 2+: Carotid (L), Carotid (R), Posterior Tibial (L), Posterior Tibial (R), Dorsalis Pedis (L), Dorsalis Pedis (R) Skin: Warm, Dry - Patient Data Lab Results Last 24 hrs: Laboratory Results - last 24 hr 03/19/19 03/19/19 03/19/19 Range/Units 20:30 20:30 20:30 WBC 24.84 H (4.23-9.07) K/mm3 RBC 4.56 L (4.63-6.08) M/mm3 Hgb 14.1 (13.7-17.5) gm/dl Hct 38.5 L (40.1-51.0) % MCV 84.4 (79.0-92.2) fl MCH 30.9 (25.7-32.2) pg MCHC 36.6 H (32.2-35.5) g/dl RDW Std Deviation 40.4 (35.1-43.9) fL Plt Count 106 L (163-337) K/mm3 MPV 13.0 H (9.4-12.3) fl Neut % (Auto) 90.1 H (34.0-67.9) % Lymph % (Auto) 3.5 L (21.8-53.1) % [place] % (Auto) 4.1 L (5.3-12.2) % Eos % (Auto) 0 L (0.8-7.0) Baso % (Auto) 0.2 (0.1-1.2) % Neut # (Auto) 22.36 H (1.78-5.38) K/mm3 Lymph # (Auto) 0.87 L (1.32-3.57) K/mm3 [place] # (Auto) 1.02 H (0.30-0.82) K/mm3 Eos # (Auto) 0.00 L (0.04-0.54) K/mm3 Baso # (Auto) 0.06 (0.01-0.08) K/mm3 Manual Slide Review Abnormal smear Sodium 129 L (136-145) mEq/L Potassium 2.9 L (3.5-5.1) mEq/L Chloride 95 L (98-107) mEq/L Carbon Dioxide 19 L (21-32) mEq/L Anion Gap 17.9 H (5-15) BUN 92 H (7-18) mg/dL Creatinine 2.6 H (0.7-1.3) mg/dL Est Cr Clr Drug Dosing 40.41 mL/min Estimated GFR (MDRD) 29 (>60) mL/min BUN/Creatinine Ratio 35.4 H (14-18) Glucose 180 H (74-106) mg/dL Lactic Acid 3.8 H (0.4-2.0) mmol/L Calcium 7.2 L (8.5-10.1) mg/dL Magnesium (1.8-2.4) mg/dl Total Bilirubin 2.4 H (0.2-1.0) mg/dL AST 209 H (15-37) U/L ALT 110 H (16-63) U/L Alkaline Phosphatase 176 H (46-116) U/L C-Reactive Protein (<1.0) mg/dL Total Protein 7.3 (6.4-8.2) g/dl Albumin 2.2 L (3.4-5.0) g/dl Globulin 5.1 gm/dL Albumin/Globulin Ratio 0.4 L (1-2) Lipase 789 H (73-393) U/L Procalcitonin (<0.10) ng/mL Urine Color (Yellow) Urine Appearance (Clear) Urine pH (5.0-8.0) Ur Specific [place] (1.005-1.030) Urine Protein (Negative) Urine Glucose (UA) (Negative) Urine Ketones (Negative) Urine Occult Blood (Negative) Urine Nitrite (Negative) Urine Bilirubin (Negative) Urine Urobilinogen (0.2-1.0) Ur Leukocyte Esterase (Negative) Urine RBC (0-5) /hpf Urine WBC (0-5) /hpf Ur Squamous Epith Cells (0-5) /hpf Amorphous Sediment (NOT SEEN) /hpf Urine Bacteria (FEW) /hpf Hyaline Casts (0-5) /lpf Urine Mucus (FEW) /hpf Urine Opiates Screen (MLYWBJ=741) Ur Buprenorphine Scrn (CUTOFF=10) Ur Oxycodone Screen (IES8NG=440) Urine Methadone Screen (RSN3AJ=791) Ur Propoxyphene Screen (RHBGHE=951) Ur Barbiturates Screen (MXZHIF=820) Ur Tricyclics Screen (WKRXGI=150) Ur Phencyclidine Scrn (CUTOFF=25) Ur Amphetamine Screen (JOJWPK=655) U Methamphetamines Scrn (SHXXNE=535) U Benzodiazepines Scrn (WDWISB=114) U Cocaine Metab Screen (STIHRH=856) U Marijuana (THC) Screen (CUTOFF=50) Ethyl Alcohol (0.00) gm% 03/19/19 03/19/19 03/20/19 Range/Units 21:41 21:45 08:40 WBC 23.55 H (4.23-9.07) K/mm3 RBC 3.84 L (4.63-6.08) M/mm3 Hgb 11.8 L D (13.7-17.5) gm/dl Hct 33.5 L (40.1-51.0) % MCV 87.2 (79.0-92.2) fl MCH 30.7 (25.7-32.2) pg MCHC 35.2 (32.2-35.5) g/dl RDW Std Deviation 41.9 (35.1-43.9) fL Plt Count 93 L (163-337) K/mm3 MPV 12.5 H (9.4-12.3) fl Neut % (Auto) 89.8 H (34.0-67.9) % Lymph % (Auto) 4.4 L (21.8-53.1) % [place] % (Auto) 3.9 L (5.3-12.2) % Eos % (Auto) 0.3 L (0.8-7.0) Baso % (Auto) 0.2 (0.1-1.2) % Neut # (Auto) 21.13 H (1.78-5.38) K/mm3 Lymph # (Auto) 1.04 L (1.32-3.57) K/mm3 [place] # (Auto) 0.93 H (0.30-0.82) K/mm3 Eos # (Auto) 0.07 (0.04-0.54) K/mm3 Baso # (Auto) 0.05 (0.01-0.08) K/mm3 Manual Slide Review Abnormal smear Sodium (136-145) mEq/L Potassium (3.5-5.1) mEq/L Chloride (98-107) mEq/L Carbon Dioxide (21-32) mEq/L Anion Gap (5-15) BUN (7-18) mg/dL Creatinine (0.7-1.3) mg/dL Est Cr Clr Drug Dosing mL/min Estimated GFR (MDRD) (>60) mL/min BUN/Creatinine Ratio (14-18) Glucose (74-106) mg/dL Lactic Acid (0.4-2.0) mmol/L Calcium (8.5-10.1) mg/dL Magnesium (1.8-2.4) mg/dl Total Bilirubin (0.2-1.0) mg/dL AST (15-37) U/L ALT (16-63) U/L Alkaline Phosphatase (46-116) U/L C-Reactive Protein (<1.0) mg/dL Total Protein (6.4-8.2) g/dl Albumin (3.4-5.0) g/dl Globulin gm/dL Albumin/Globulin Ratio (1-2) Lipase (73-393) U/L Procalcitonin (<0.10) ng/mL Urine Color Yellow (Yellow) Urine Appearance Slt cloudy H (Clear) Urine pH 5.5 (5.0-8.0) Ur Specific [place] 1.020 (1.005-1.030) Urine Protein 1+ H (Negative) Urine Glucose (UA) Negative (Negative) Urine Ketones Negative (Negative) Urine Occult Blood 2+ H (Negative) Urine Nitrite Negative (Negative) Urine Bilirubin Negative (Negative) Urine Urobilinogen 1.0 (0.2-1.0) Ur Leukocyte Esterase Negative (Negative) Urine RBC 0-5 (0-5) /hpf Urine WBC 0-5 (0-5) /hpf Ur Squamous Epith Cells 0-5 (0-5) /hpf Amorphous Sediment Moderate H (NOT SEEN) /hpf Urine Bacteria Moderate H (FEW) /hpf Hyaline Casts 0-5 (0-5) /lpf Urine Mucus Few (FEW) /hpf Urine Opiates Screen Negative (JWUPES=520) Ur Buprenorphine Scrn Negative (CUTOFF=10) Ur Oxycodone Screen Negative (BLR1XW=574) Urine Methadone Screen Negative (BET8YW=317) Ur Propoxyphene Screen Negative (ZXBWDY=578) Ur Barbiturates Screen Negative (XCMFNB=226) Ur Tricyclics Screen Negative (INNBGL=719) Ur Phencyclidine Scrn Negative (CUTOFF=25) Ur Amphetamine Screen Negative (RLSSYH=896) U Methamphetamines Scrn Negative (AMDKPJ=409) U Benzodiazepines Scrn Negative (GUHVFU=885) U Cocaine Metab Screen Negative (DIGEYY=133) U Marijuana (THC) Screen Negative (CUTOFF=50) Ethyl Alcohol (0.00) gm% 03/20/19 03/20/19 03/20/19 Range/Units 08:40 08:40 08:40 WBC (4.23-9.07) K/mm3 RBC (4.63-6.08) M/mm3 Hgb (13.7-17.5) gm/dl Hct (40.1-51.0) % MCV (79.0-92.2) fl MCH (25.7-32.2) pg MCHC (32.2-35.5) g/dl RDW Std Deviation (35.1-43.9) fL Plt Count (163-337) K/mm3 MPV (9.4-12.3) fl Neut % (Auto) (34.0-67.9) % Lymph % (Auto) (21.8-53.1) % [place] % (Auto) (5.3-12.2) % Eos % (Auto) (0.8-7.0) Baso % (Auto) (0.1-1.2) % Neut # (Auto) (1.78-5.38) K/mm3 Lymph # (Auto) (1.32-3.57) K/mm3 [place] # (Auto) (0.30-0.82) K/mm3 Eos # (Auto) (0.04-0.54) K/mm3 Baso # (Auto) (0.01-0.08) K/mm3 Manual Slide Review Sodium (136-145) mEq/L Potassium (3.5-5.1) mEq/L Chloride (98-107) mEq/L Carbon Dioxide (21-32) mEq/L Anion Gap (5-15) BUN (7-18) mg/dL Creatinine (0.7-1.3) mg/dL Est Cr Clr Drug Dosing mL/min Estimated GFR (MDRD) (>60) mL/min BUN/Creatinine Ratio (14-18) Glucose (74-106) mg/dL Lactic Acid 1.0 (0.4-2.0) mmol/L Calcium (8.5-10.1) mg/dL Magnesium 3.5 H (1.8-2.4) mg/dl Total Bilirubin (0.2-1.0) mg/dL AST (15-37) U/L ALT (16-63) U/L Alkaline Phosphatase (46-116) U/L C-Reactive Protein 22.3 H* (<1.0) mg/dL Total Protein (6.4-8.2) g/dl Albumin (3.4-5.0) g/dl Globulin gm/dL Albumin/Globulin Ratio (1-2) Lipase (73-393) U/L Procalcitonin 21.08 H (<0.10) ng/mL Urine Color (Yellow) Urine Appearance (Clear) Urine pH (5.0-8.0) Ur Specific [place] (1.005-1.030) Urine Protein (Negative) Urine Glucose (UA) (Negative) Urine Ketones (Negative) Urine Occult Blood (Negative) Urine Nitrite (Negative) Urine Bilirubin (Negative) Urine Urobilinogen (0.2-1.0) Ur Leukocyte Esterase (Negative) Urine RBC (0-5) /hpf Urine WBC (0-5) /hpf Ur Squamous Epith Cells (0-5) /hpf Amorphous Sediment (NOT SEEN) /hpf Urine Bacteria (FEW) /hpf Hyaline Casts (0-5) /lpf Urine Mucus (FEW) /hpf Urine Opiates Screen (SBMNUU=129) Ur Buprenorphine Scrn (CUTOFF=10) Ur Oxycodone Screen (RJE6LK=307) Urine Methadone Screen (FNU4KY=742) Ur Propoxyphene Screen (SYWBSU=886) Ur Barbiturates Screen (KKWEVX=522) Ur Tricyclics Screen (NSWZJI=552) Ur Phencyclidine Scrn (CUTOFF=25) Ur Amphetamine Screen (NPHNFH=238) U Methamphetamines Scrn (OGIRAJ=680) U Benzodiazepines Scrn (LNELFC=431) U Cocaine Metab Screen (GHQWFF=821) U Marijuana (THC) Screen (CUTOFF=50) Ethyl Alcohol (0.00) gm% 03/20/19 03/20/19 03/20/19 Range/Units 12:27 12:27 12:27 WBC (4.23-9.07) K/mm3 RBC (4.63-6.08) M/mm3 Hgb (13.7-17.5) gm/dl Hct (40.1-51.0) % MCV (79.0-92.2) fl MCH (25.7-32.2) pg MCHC (32.2-35.5) g/dl RDW Std Deviation (35.1-43.9) fL Plt Count (163-337) K/mm3 MPV (9.4-12.3) fl Neut % (Auto) (34.0-67.9) % Lymph % (Auto) (21.8-53.1) % [place] % (Auto) (5.3-12.2) % Eos % (Auto) (0.8-7.0) Baso % (Auto) (0.1-1.2) % Neut # (Auto) (1.78-5.38) K/mm3 Lymph # (Auto) (1.32-3.57) K/mm3 [place] # (Auto) (0.30-0.82) K/mm3 Eos # (Auto) (0.04-0.54) K/mm3 Baso # (Auto) (0.01-0.08) K/mm3 Manual Slide Review Sodium 133 L (136-145) mEq/L Potassium 3.4 L (3.5-5.1) mEq/L Chloride 100 (98-107) mEq/L Carbon Dioxide 23 (21-32) mEq/L Anion Gap 13.4 (5-15) BUN 80 H (7-18) mg/dL Creatinine 2.2 H (0.7-1.3) mg/dL Est Cr Clr Drug Dosing 46.57 mL/min Estimated GFR (MDRD) 35 (>60) mL/min BUN/Creatinine Ratio 36.4 H (14-18) Glucose 117 H (74-106) mg/dL Lactic Acid 1.2 (0.4-2.0) mmol/L Calcium 5.9 L (8.5-10.1) mg/dL Magnesium (1.8-2.4) mg/dl Total Bilirubin 1.5 H (0.2-1.0) mg/dL AST 133 H (15-37) U/L ALT 72 H (16-63) U/L Alkaline Phosphatase 104 (46-116) U/L C-Reactive Protein (<1.0) mg/dL Total Protein 5.4 L (6.4-8.2) g/dl Albumin 1.5 L (3.4-5.0) g/dl Globulin 3.9 gm/dL Albumin/Globulin Ratio 0.4 L (1-2) Lipase (73-393) U/L Procalcitonin (<0.10) ng/mL Urine Color (Yellow) Urine Appearance (Clear) Urine pH (5.0-8.0) Ur Specific [place] (1.005-1.030) Urine Protein (Negative) Urine Glucose (UA) (Negative) Urine Ketones (Negative) Urine Occult Blood (Negative) Urine Nitrite (Negative) Urine Bilirubin (Negative) Urine Urobilinogen (0.2-1.0) Ur Leukocyte Esterase (Negative) Urine RBC (0-5) /hpf Urine WBC (0-5) /hpf Ur Squamous Epith Cells (0-5) /hpf Amorphous Sediment (NOT SEEN) /hpf Urine Bacteria (FEW) /hpf Hyaline Casts (0-5) /lpf Urine Mucus (FEW) /hpf Urine Opiates Screen (FVFDCL=285) Ur Buprenorphine Scrn (CUTOFF=10) Ur Oxycodone Screen (LPI5BT=438) Urine Methadone Screen (PRW9UH=245) Ur Propoxyphene Screen (FRGXXH=399) Ur Barbiturates Screen (AIDFPS=125) Ur Tricyclics Screen (WQPUHG=618) Ur Phencyclidine Scrn (CUTOFF=25) Ur Amphetamine Screen (QANUZD=512) U Methamphetamines Scrn (THAJWB=189) U Benzodiazepines Scrn (YDFMNU=482) U Cocaine Metab Screen (VHNPRC=077) U Marijuana (THC) Screen (CUTOFF=50) Ethyl Alcohol 0.00 (0.00) gm% 03/20/19 Range/Units 16:38 WBC (4.23-9.07) K/mm3 RBC (4.63-6.08) M/mm3 Hgb (13.7-17.5) gm/dl Hct (40.1-51.0) % MCV (79.0-92.2) fl MCH (25.7-32.2) pg MCHC (32.2-35.5) g/dl RDW Std Deviation (35.1-43.9) fL Plt Count (163-337) K/mm3 MPV (9.4-12.3) fl Neut % (Auto) (34.0-67.9) % Lymph % (Auto) (21.8-53.1) % [place] % (Auto) (5.3-12.2) % Eos % (Auto) (0.8-7.0) Baso % (Auto) (0.1-1.2) % Neut # (Auto) (1.78-5.38) K/mm3 Lymph # (Auto) (1.32-3.57) K/mm3 [place] # (Auto) (0.30-0.82) K/mm3 Eos # (Auto) (0.04-0.54) K/mm3 Baso # (Auto) (0.01-0.08) K/mm3 Manual Slide Review Sodium (136-145) mEq/L Potassium (3.5-5.1) mEq/L Chloride (98-107) mEq/L Carbon Dioxide (21-32) mEq/L Anion Gap (5-15) BUN (7-18) mg/dL Creatinine (0.7-1.3) mg/dL Est Cr Clr Drug Dosing mL/min Estimated GFR (MDRD) (>60) mL/min BUN/Creatinine Ratio (14-18) Glucose (74-106) mg/dL Lactic Acid 1.7 (0.4-2.0) mmol/L Calcium (8.5-10.1) mg/dL Magnesium (1.8-2.4) mg/dl Total Bilirubin (0.2-1.0) mg/dL AST (15-37) U/L ALT (16-63) U/L Alkaline Phosphatase (46-116) U/L C-Reactive Protein (<1.0) mg/dL Total Protein (6.4-8.2) g/dl Albumin (3.4-5.0) g/dl Globulin gm/dL Albumin/Globulin Ratio (1-2) Lipase (73-393) U/L Procalcitonin (<0.10) ng/mL Urine Color (Yellow) Urine Appearance (Clear) Urine pH (5.0-8.0) Ur Specific [place] (1.005-1.030) Urine Protein (Negative) Urine Glucose (UA) (Negative) Urine Ketones (Negative) Urine Occult Blood (Negative) Urine Nitrite (Negative) Urine Bilirubin (Negative) Urine Urobilinogen (0.2-1.0) Ur Leukocyte Esterase (Negative) Urine RBC (0-5) /hpf Urine WBC (0-5) /hpf Ur Squamous Epith Cells (0-5) /hpf Amorphous Sediment (NOT SEEN) /hpf Urine Bacteria (FEW) /hpf Hyaline Casts (0-5) /lpf Urine Mucus (FEW) /hpf Urine Opiates Screen (OKWXBY=011) Ur Buprenorphine Scrn (CUTOFF=10) Ur Oxycodone Screen (ADU2MD=830) Urine Methadone Screen (PRT2TT=713) Ur Propoxyphene Screen (HAZBOZ=713) Ur Barbiturates Screen (TQTNEM=902) Ur Tricyclics Screen (OFYKSG=409) Ur Phencyclidine Scrn (CUTOFF=25) Ur Amphetamine Screen (XYJJUH=648) U Methamphetamines Scrn (BOYDZK=620) U Benzodiazepines Scrn (BYYXQP=055) U Cocaine Metab Screen (XUETST=650) U Marijuana (THC) Screen (CUTOFF=50) Ethyl Alcohol (0.00) gm% Result Diagrams: 03/20/19 08:40 03/20/19 12:27 Minor Results Last 24 hrs: Microbiology 03/19/19 20:47 Aerobic Blood Culture - Preliminary Blood - Venous Gp Cocci In Pairs And Chains Anaerobic Blood Culture - Preliminary Gp Cocci In Pairs And Chains 03/19/19 21:13 Aerobic Blood Culture - Preliminary Blood - Venous - Lab Draw Gp Cocci In Pairs And Chains Anaerobic Blood Culture - Preliminary Gp Cocci In Pairs And Chains 03/20/19 05:30 Gram Stain - Final Sputum - Expectorated Consult PN Assessment/Plan Problem List Initiated/Reviewed/Updated: No Plan: Abdominal pain - based on history and my exam and elevated lipase, I suspect the patient has acute pancreatitis. Non contrast CT does not show overt pancreatic inflammation but I would recommend repeat if his CT a/p with IV contrast when patient's creatinine normalized if his pain persists. Continue aggressive resuscitation with LR. I agree with placement of a central line to assist with resuscitation. Central line was placed at bedside. Note dictated separately. Bilateral elbow pain and foot pain: there areas are swollen as well. Xrays show no fractures. I would recommend ultrasound to rule our superficial abscesses. If no improvement with current antibiotics, I would recommend CT scan to rule out deep abscess as patient has known history of IVDU.
--- NOTE | 2019-03-20 22:11 | PROC ---
DATE OF OPERATION: 03/20/2019 SURGEON: Kulwinder Goodrich MD PREOPERATIVE DIAGNOSIS: Sepsis. POSTOPERATIVE DIAGNOSIS: Sepsis. OPERATION PERFORMED: Ultrasound guided Central line placement with 20 cm 7- Pashto triple-lumen central line through the right internal jugular. COMPLICATIONS: None. INDICATIONS AND CONSENT: The patient is a 33-year-old male, who presented yesterday to the emergency department with severe abdominal pain and altered mental status as well as sepsis. The patient was admitted to the ICU. Given the need for resuscitation, a central line was recommended, and surgical consult was placed for central line. I saw the patient, evaluated, and agreed with the central line placement. I spoke with the patient and obtained an informed consent after discussing the risks for central line placement including pneumothorax, bleeding, infection and inability to place a central line. The patient signed informed consent. DETAILS OF THE PROCEDURE: The patient was placed in supine position in mild Trendelenburg position. Ultrasound was used to identify the right internal jugular vein. After prepping and draping the patient in a sterile fashion. Using ultrasound guidance, a 14- Pashto introducer needle was placed into the vein until the dark venous blood was drawn. Then, using Seldinger technique, a wire was advanced and the tract was dilated and a 7-Pashto triple- lumen central line was placed into the right IJ and sutured in place. There was no immediate complications, and the patient tolerated the procedure well. Of note, 1% lidocaine plain was used to anesthetize the site of injection prior to beginning of the procedure. Plan is for the patient to obtain a chest x-ray to confirm line placement and to rule out any pneumothorax. MMODAL /[id number] GREG
[2019-03-20] MEDS ORDERED: Lactated Ringers 1,000 ML IV SCH (22:30)
[2019-03-21] MEDS: tiZANidine 4 MG Tab PO PRN (00:51)
[2019-03-21] MEDS: Sodium Chloride 0.9% 1,000 ML IV SCH ×4 (00:53→20:50)
[2019-03-21] MEDS: chlordiazePOXIDE 25 MG Cap PO PRN ×2 (01:00→10:26)
[2019-03-21] MEDS: HYDROmorphone 1 MG/ML Syringe IVPUSH PRN ×5 (01:43→20:02)
[2019-03-21] MEDS: Meropenem Premix 500 MG in Premix Bag 1 BAG IV SCH ×4 (01:47→20:01)
[2019-03-21] MEDS: Hydrocortisone Sodium Succinate 100 MG/2 ML SDV IVPUSH SCH ×4 (02:00→20:02)
[2019-03-21] MEDS: oxyCODONE ER 10 MG TAB.ER PO SCH (08:03)
[2019-03-21] MEDS: Multivitamins,Therapeutic Tab PO SCH (08:04)
[2019-03-21] MEDS: Thiamine 100 MG Tab PO SCH (08:04)
[2019-03-21] MEDS: Folic Acid 1 MG Tab PO SCH (08:04)
[2019-03-21] MEDS: Nicotine 21 MG/24 Hr Patch TRDERM SCH (08:05)
[2019-03-21] MEDS ORDERED: oxyCODONE ER 10 MG TAB.ER PO ONE (08:44)
[2019-03-21] MEDS: oxyCODONE ER 20 MG TAB.ER PO SCH ×2 (09:34→20:02)
--- NOTE | 2019-03-21 09:38 | CR ---
Chest: Portable view of the chest was obtained. Comparison: Previous chest x-ray of 03/20/19 (6:43 PM). Increased density within both lung bases. Heart size and mediastinum are stable. Right-sided central line is unchanged in position. Bony structures are grossly intact. Bowel gas pattern appears unchanged. Impression: 1. Multiple findings as noted above. No change from previous chest x-ray performed on 03/20/19. Diagnostic code #3
[2019-03-21] MEDS: Vancomycin 1 GM, Vancomycin 250 MG in Sodium Chloride 0.9% 250 ML IV SCH ×2 (09:56→21:03)
[2019-03-21] MEDS: Pantoprazole 80 MG in Sodium Chloride 0.9% 100 ML IV SCH (11:43)
[2019-03-21] MEDS: LORazepam 2 MG/ML SDV IV PRN ×2 (11:47→20:01)
--- NOTE | 2019-03-21 12:23 | PCM.PN ---
<Stacy Hanson - Last Filed: 03/21/19 12:16> - General Info Date of Service: 03/21/19 Admission Dx/Problem (Free Text): Admission Diagnosis/Problem Admission Diagnosis/Problem Sepsis Subjective Update: Patient is much improved today in clinic. He continues to complain of back pain and joint pain. - Review of Systems General: Reports: No Symptoms HEENT: Reports: No Symptoms Pulmonary: Reports: Cough, Hemoptysis Cardiovascular: Reports: No Symptoms Gastrointestinal: Reports: Abdominal Pain Genitourinary: Reports: No Symptoms Musculoskeletal: Reports: Foot Pain, Joint Pain Skin: Reports: No Symptoms Neurological: Reports: No Symptoms Psychiatric: Reports: No Symptoms - Patient Data Vitals - Most Recent: Last Vital Signs Temp 96.4 F 03/21/19 09:00 Pulse 63 03/21/19 11:00 Resp 20 03/21/19 11:00 BP 114/73 03/21/19 11:00 Pulse Ox 93 L 03/21/19 11:00 Weight - Most Recent: 75.206 kg I&O - Last 24 Hours: Intake & Output 03/20/19 03/21/19 03/21/19 22:59 06:59 14:59 Intake Total 3622 3640 1100 Output Total 1975 1000 655 Balance 1647 5730 445 Lab Results Last 24 Hours: Laboratory Results - last 24 hr 03/19/19 03/20/19 03/20/19 Range/Units 21:41 08:40 12:27 WBC (4.23-9.07) K/mm3 RBC (4.63-6.08) M/mm3 Hgb (13.7-17.5) gm/dl Hct (40.1-51.0) % MCV (79.0-92.2) fl MCH (25.7-32.2) pg MCHC (32.2-35.5) g/dl RDW Std Deviation (35.1-43.9) fL Plt Count (163-337) K/mm3 MPV (9.4-12.3) fl Neut % (Auto) (34.0-67.9) % Lymph % (Auto) (21.8-53.1) % Stark % (Auto) (5.3-12.2) % Eos % (Auto) (0.8-7.0) Baso % (Auto) (0.1-1.2) % Neut # (Auto) (1.78-5.38) K/mm3 Lymph # (Auto) (1.32-3.57) K/mm3 Stark # (Auto) (0.30-0.82) K/mm3 Eos # (Auto) (0.04-0.54) K/mm3 Baso # (Auto) (0.01-0.08) K/mm3 Manual Slide Review Sodium (136-145) mEq/L Potassium (3.5-5.1) mEq/L Chloride (98-107) mEq/L Carbon Dioxide (21-32) mEq/L Anion Gap (5-15) BUN (7-18) mg/dL Creatinine (0.7-1.3) mg/dL Est Cr Clr Drug Dosing mL/min Estimated GFR (MDRD) (>60) mL/min BUN/Creatinine Ratio (14-18) Glucose (74-106) mg/dL Lactic Acid 1.2 (0.4-2.0) mmol/L Calcium (8.5-10.1) mg/dL Magnesium (1.8-2.4) mg/dl Total Bilirubin (0.2-1.0) mg/dL AST (15-37) U/L ALT (16-63) U/L Alkaline Phosphatase (46-116) U/L C-Reactive Protein (<1.0) mg/dL Total Protein (6.4-8.2) g/dl Albumin (3.4-5.0) g/dl Globulin gm/dL Albumin/Globulin Ratio (1-2) Procalcitonin 21.08 H (<0.10) ng/mL Vancomycin Trough (10.0-20.0) Urine Opiates Screen Negative (DACGVA=576) Ur Buprenorphine Scrn Negative (CUTOFF=10) Ur Oxycodone Screen Negative (ZYJ2RO=279) Urine Methadone Screen Negative (TGU8WN=716) Ur Propoxyphene Screen Negative (TRJZMY=390) Ur Barbiturates Screen Negative (NPYNRZ=014) Ur Tricyclics Screen Negative (QTUVCB=673) Ur Phencyclidine Scrn Negative (CUTOFF=25) Ur Amphetamine Screen Negative (QWUQSJ=127) U Methamphetamines Scrn Negative (BNUCCA=813) U Benzodiazepines Scrn Negative (PLBDXE=943) U Cocaine Metab Screen Negative (UZAZRK=319) U Marijuana (THC) Screen Negative (CUTOFF=50) Ethyl Alcohol (0.00) gm% 03/20/19 03/20/19 03/20/19 Range/Units 12:27 12:27 16:38 WBC (4.23-9.07) K/mm3 RBC (4.63-6.08) M/mm3 Hgb (13.7-17.5) gm/dl Hct (40.1-51.0) % MCV (79.0-92.2) fl MCH (25.7-32.2) pg MCHC (32.2-35.5) g/dl RDW Std Deviation (35.1-43.9) fL Plt Count (163-337) K/mm3 MPV (9.4-12.3) fl Neut % (Auto) (34.0-67.9) % Lymph % (Auto) (21.8-53.1) % Stark % (Auto) (5.3-12.2) % Eos % (Auto) (0.8-7.0) Baso % (Auto) (0.1-1.2) % Neut # (Auto) (1.78-5.38) K/mm3 Lymph # (Auto) (1.32-3.57) K/mm3 Stark # (Auto) (0.30-0.82) K/mm3 Eos # (Auto) (0.04-0.54) K/mm3 Baso # (Auto) (0.01-0.08) K/mm3 Manual Slide Review Sodium 133 L (136-145) mEq/L Potassium 3.4 L (3.5-5.1) mEq/L Chloride 100 (98-107) mEq/L Carbon Dioxide 23 (21-32) mEq/L Anion Gap 13.4 (5-15) BUN 80 H (7-18) mg/dL Creatinine 2.2 H (0.7-1.3) mg/dL Est Cr Clr Drug Dosing 46.57 mL/min Estimated GFR (MDRD) 35 (>60) mL/min BUN/Creatinine Ratio 36.4 H (14-18) Glucose 117 H (74-106) mg/dL Lactic Acid 1.7 (0.4-2.0) mmol/L Calcium 5.9 L (8.5-10.1) mg/dL Magnesium (1.8-2.4) mg/dl Total Bilirubin 1.5 H (0.2-1.0) mg/dL AST 133 H (15-37) U/L ALT 72 H (16-63) U/L Alkaline Phosphatase 104 (46-116) U/L C-Reactive Protein (<1.0) mg/dL Total Protein 5.4 L (6.4-8.2) g/dl Albumin 1.5 L (3.4-5.0) g/dl Globulin 3.9 gm/dL Albumin/Globulin Ratio 0.4 L (1-2) Procalcitonin (<0.10) ng/mL Vancomycin Trough (10.0-20.0) Urine Opiates Screen (SHCGSG=003) Ur Buprenorphine Scrn (CUTOFF=10) Ur Oxycodone Screen (HYH0RG=991) Urine Methadone Screen (UVE7KM=937) Ur Propoxyphene Screen (DJDXNV=484) Ur Barbiturates Screen (TICWMM=139) Ur Tricyclics Screen (KBHMLY=691) Ur Phencyclidine Scrn (CUTOFF=25) Ur Amphetamine Screen (KWINVR=526) U Methamphetamines Scrn (DIRBTL=045) U Benzodiazepines Scrn (ZYMEYX=799) U Cocaine Metab Screen (OIQNNC=318) U Marijuana (THC) Screen (CUTOFF=50) Ethyl Alcohol 0.00 (0.00) gm% 03/21/19 03/21/19 03/21/19 Range/Units 05:05 05:05 09:03 WBC 9.93 H (4.23-9.07) K/mm3 RBC 3.15 L (4.63-6.08) M/mm3 Hgb 9.7 L D (13.7-17.5) gm/dl Hct 28.3 L (40.1-51.0) % MCV 89.8 (79.0-92.2) fl MCH 30.8 (25.7-32.2) pg MCHC 34.3 (32.2-35.5) g/dl RDW Std Deviation 45.0 H (35.1-43.9) fL Plt Count 89 L (163-337) K/mm3 MPV 12.1 (9.4-12.3) fl Neut % (Auto) 88.6 H (34.0-67.9) % Lymph % (Auto) 8.1 L (21.8-53.1) % Stark % (Auto) 2.4 L (5.3-12.2) % Eos % (Auto) 0 L (0.8-7.0) Baso % (Auto) 0.1 (0.1-1.2) % Neut # (Auto) 8.80 H (1.78-5.38) K/mm3 Lymph # (Auto) 0.80 L (1.32-3.57) K/mm3 Stark # (Auto) 0.24 L (0.30-0.82) K/mm3 Eos # (Auto) 0.00 L (0.04-0.54) K/mm3 Baso # (Auto) 0.01 (0.01-0.08) K/mm3 Manual Slide Review Abnormal smear Sodium 140 (136-145) mEq/L Potassium 4.1 (3.5-5.1) mEq/L Chloride 107 (98-107) mEq/L Carbon Dioxide 24 (21-32) mEq/L Anion Gap 13.1 (5-15) BUN 62 H (7-18) mg/dL Creatinine 1.7 H (0.7-1.3) mg/dL Est Cr Clr Drug Dosing 61.80 mL/min Estimated GFR (MDRD) 47 (>60) mL/min BUN/Creatinine Ratio 36.5 H (14-18) Glucose 166 H (74-106) mg/dL Lactic Acid (0.4-2.0) mmol/L Calcium 6.3 L (8.5-10.1) mg/dL Magnesium 3.1 H (1.8-2.4) mg/dl Total Bilirubin 1.3 H (0.2-1.0) mg/dL AST 94 H (15-37) U/L ALT 59 (16-63) U/L Alkaline Phosphatase 92 (46-116) U/L C-Reactive Protein 17.9 H* (<1.0) mg/dL Total Protein 5.6 L (6.4-8.2) g/dl Albumin 1.4 L (3.4-5.0) g/dl Globulin 4.2 gm/dL Albumin/Globulin Ratio 0.3 L (1-2) Procalcitonin (<0.10) ng/mL Vancomycin Trough 9.1 L (10.0-20.0) Urine Opiates Screen (BQIUUU=700) Ur Buprenorphine Scrn (CUTOFF=10) Ur Oxycodone Screen (JWR7HZ=214) Urine Methadone Screen (HVE8OO=159) Ur Propoxyphene Screen (PXZNLJ=926) Ur Barbiturates Screen (QTRPFC=969) Ur Tricyclics Screen (PIJAID=873) Ur Phencyclidine Scrn (CUTOFF=25) Ur Amphetamine Screen (MRFNBA=336) U Methamphetamines Scrn (KSJEAS=797) U Benzodiazepines Scrn (MNEMXD=270) U Cocaine Metab Screen (PKHUQM=241) U Marijuana (THC) Screen (CUTOFF=50) Ethyl Alcohol (0.00) gm% Minor Results Last 24 Hours: Microbiology 03/20/19 05:30 Gram Stain - Final Sputum - Expectorated Sputum Culture - Preliminary Beta Streptococcus Group A 03/19/19 21:13 Aerobic Blood Culture - Preliminary Blood - Venous - Lab Draw Beta Streptococcus Group A Anaerobic Blood Culture - Preliminary Beta Streptococcus Group A 03/19/19 20:47 Aerobic Blood Culture - Preliminary Blood - Venous Beta Streptococcus Group A Anaerobic Blood Culture - Preliminary Beta Streptococcus Group A Med Orders - Current: Current Medications Acetaminophen (Tylenol) 975 mg PO Q4H PRN PRN Reason: Pain/Fever Albuterol/Ipratropium (Duoneb 3.0-0.5 Mg/3 Ml) 3 ml NEB Q4H PRN PRN Reason: Shortness Of Breath/wheezing Bisacodyl (Dulcolax) 5 mg PO DAILY PRN PRN Reason: Constipation Chlordiazepoxide HCl (Librium) 25 mg PO Q8H PRN PRN Reason: Withdrawal Symptoms Last Admin: 03/21/19 10:26 Dose: 25 mg Clonidine HCl (Catapres) 0.1 mg PO Q4H PRN PRN Reason: Agitation Diphenhydr/Magaldrate/Simeth/Lidoca (First-Mouthwash Blm Susp) 30 ml PO ASDIRECTED JUANA Docusate Sodium (Colace) 100 mg PO BID PRN PRN Reason: Constipation Folic Acid (Folic Acid) 1 mg PO DAILY JUANA Stop: 03/22/19 09:01 Last Admin: 03/21/19 08:04 Dose: 1 mg Guaifenesin/Phenylephrine HCl (Robitussin Dm) 10 ml PO Q4H PRN PRN Reason: Cough Haloperidol Lactate (Haldol) 2 mg IM Q4H PRN PRN Reason: Agitation Hydrocortisone Sodium Succinate (Solu-Cortef) 100 mg IVPUSH Q6H JUANA Last Admin: 03/21/19 08:05 Dose: 100 mg Hydromorphone HCl (Dilaudid) 1 mg IVPUSH Q4H PRN PRN Reason: Pain Last Admin: 03/21/19 09:23 Dose: 1 mg Promethazine HCl 6.25 mg/ (Sodium Chloride) 50.25 mls @ 100 mls/hr IV Q6H PRN PRN Reason: Nausea/Vomiting Norepinephrine Bitartrate 4 mg (/ Dextrose/Water) 250 mls @ 7.5 mls/hr IV TITRATE [facility]; Protocol Last Titration: 03/20/19 21:00 Dose: 0 mcg/min, 0 mls/hr Sodium Chloride (Normal Saline) 1,000 mls @ 150 mls/hr IV ASDIRECTED [facility] Last Admin: 03/21/19 07:36 Dose: 150 mls/hr Meropenem/Sodium Chloride 500 (mg/ Premix) 50 mls @ 100 mls/hr IV Q6H [facility] Last Admin: 03/21/19 07:43 Dose: 100 mls/hr Vancomycin HCl 1 gm/Vancomycin HCl 250 mg/ Sodium Chloride 250 mls @ 166.667 mls/hr IV Q12H JUANA Last Admin: 03/21/19 09:56 Dose: 166.667 mls/hr Lorazepam (Ativan) 1 mg IV Q6H PRN PRN Reason: Anxiety Last Admin: 03/21/19 11:47 Dose: 1 mg Miscellaneous Information (Remove Patch) 1 ea TRDERM DAILY [facility] Last Admin: 03/21/19 09:27 Dose: 1 ea Multivitamins (Thera) 1 each PO DAILY [facility] Last Admin: 03/21/19 08:04 Dose: 1 each Nicotine (Habitrol) 21 mg TRDERM DAILY [facility] Last Admin: 03/21/19 08:05 Dose: 21 mg Ondansetron HCl (Zofran) 4 mg IV Q6H PRN PRN Reason: Nausea/Vomiting Oxycodone HCl (Oxycodone) 5 mg PO Q4H PRN PRN Reason: Pain (moderate 4-6) Oxycodone HCl (Oxycontin) 20 mg PO Q12HR [facility] Last Admin: 03/21/19 09:34 Dose: Not Given Polyethylene Glycol (Miralax) 17 gm PO DAILY PRN PRN Reason: Constipation Senna/Docusate Sodium (Senna Plus) 1 tab PO BID PRN PRN Reason: Constipation Sodium Chloride (Saline Flush) 10 ml FLUSH ASDIRECTED PRN PRN Reason: Keep Vein Open Last Admin: 03/19/19 21:04 Dose: 10 ml Thiamine HCl (Vitamin B-1) 100 mg PO DAILY [facility] Last Admin: 03/21/19 08:04 Dose: 100 mg Tizanidine HCl (Zanaflex) 4 mg PO Q8H PRN PRN Reason: Spasms Last Admin: 03/21/19 00:51 Dose: 4 mg Vancomycin HCl (Pharmacy To Dose - Vancomycin) 1 dose .XX ASDIRECTED PRN PRN Reason: RX TO DOSE VANCO Discontinued Medications Acetaminophen (Tylenol) 975 mg PO NOW ONE Stop: 03/19/19 22:18 Last Admin: 03/19/19 22:21 Dose: 975 mg Calcium Gluconate (Calcium Gluconate) 2 gm IV ONETIME ONE Stop: 03/20/19 13:02 Last Admin: 03/20/19 13:48 Dose: 2 gm Calcium Gluconate (Calcium Gluconate) 1 gm IV ONETIME ONE Stop: 03/20/19 14:01 Last Admin: 03/20/19 14:09 Dose: Not Given Diatrizoate Meglum/Diatrizoate Sod (Gastrografin 37%) 60 ml PO ONETIME ONE Stop: 03/19/19 20:03 Last Admin: 03/20/19 03:41 Dose: Not Given Gentamicin Sulfate (Pharmacy To Dose - Gentamicin) 0 dose .XX DAILY PRN PRN Reason: RX TO DOSE GENT Hydromorphone HCl (Dilaudid) 0.5 mg IVPUSH ONETIME ONE Stop: 03/19/19 23:44 Last Admin: 03/19/19 23:51 Dose: 0.5 mg Hydromorphone HCl (Dilaudid) 1 mg IVPUSH ONETIME ONE Stop: 03/20/19 00:33 Last Admin: 03/20/19 09:12 Dose: 1 mg Lactated Ringer's (Ringers, Lactated) 2,177 mls @ 1,000 mls/hr IV .BOLUS ONE Stop: 03/19/19 22:07 Last Admin: 03/19/19 20:30 Dose: 1,000 mls/hr Vancomycin HCl 1.75 gm/ Sodium (Chloride) 500 mls @ 250 mls/hr IV ONETIME ONE Stop: 03/19/19 19:59 Last Admin: 03/19/19 20:58 Dose: 250 mls/hr Lactated Ringer's (Ringers, Lactated) 1,000 mls @ 1,000 mls/hr IV .BOLUS ONE Stop: 03/19/19 22:13 Last Admin: 03/19/19 21:30 Dose: 1,000 mls/hr Potassium Chloride 10 meq/ (Premix) 100 mls @ 100 mls/hr IV ONETIME ONE Stop: 03/19/19 22:20 Last Admin: 03/19/19 22:08 Dose: 100 mls/hr Lactated Ringer's (Ringers, Lactated) 1,000 mls @ 150 mls/hr IV ASDIRECTED [facility] Last Admin: 03/19/19 22:56 Dose: 150 mls/hr Sodium Chloride (Normal Saline) 1,000 mls @ 100 mls/hr IV ASDIRECTED JUANA Stop: 03/21/19 00:30 Last Infusion: 03/20/19 17:56 Dose: 150 mls/hr Vancomycin HCl 1.75 gm/ Sodium (Chloride) 500 mls @ 250 mls/hr IV Q24H [facility] Lactated Ringer's (Ringers, Lactated) 1,000 mls @ 999 mls/hr IV .BOLUS ONE Stop: 03/20/19 09:26 Last Admin: 03/20/19 09:15 Dose: 999 mls/hr Piperacillin Sod/Tazobactam (Sod 4.5 gm/ Sodium Chloride) 100 mls @ 200 mls/hr IV ONETIME ONE Stop: 03/20/19 09:29 Last Admin: 03/20/19 09:34 Dose: 200 mls/hr Piperacillin Sod/Tazobactam (Sod 4.5 gm/ Sodium Chloride) 100 mls @ 25 mls/hr IV Q8H [facility] Lactated Ringer's (Ringers, Lactated) 1,000 mls @ 999 mls/hr IV .BOLUS ONE Stop: 03/20/19 10:02 Last Admin: 03/20/19 09:19 Dose: 999 mls/hr Vancomycin HCl 1.75 gm/ Sodium (Chloride) 500 mls @ 250 mls/hr IV Q24H [facility] Last Admin: 03/20/19 18:58 Dose: Not Given Gentamicin Sulfate 70 mg/ (Sodium Chloride) 101.75 mls @ 101.75 mls/hr IV Q12H [facility] Last Admin: 03/20/19 09:56 Dose: 101.75 mls/hr Pantoprazole Sodium 80 mg/ (Sodium Chloride) 100 mls @ 10 mls/hr IV Q10H [facility] Last Admin: 03/21/19 11:43 Dose: Not Given Vancomycin HCl 1 gm/ Sodium (Chloride) 250 mls @ 250 mls/hr IV Q18H [facility] Last Admin: 03/21/19 09:49 Dose: Not Given Meropenem/Sodium Chloride 500 (mg/ Premix) 50 mls @ 100 mls/hr IV Q8H [facility] Last Admin: 03/21/19 01:47 Dose: 100 mls/hr Iopamidol (Isovue-300 (61%)) 100 ml IVPUSH ONETIME ONE Stop: 03/19/19 20:03 Last Admin: 03/20/19 03:41 Dose: Not Given Lorazepam (Ativan) 1 mg IVPUSH ONETIME ONE Stop: 03/20/19 00:39 Last Admin: 03/20/19 02:27 Dose: 1 mg Ondansetron HCl (Zofran) 4 mg IVPUSH ONETIME ONE Stop: 03/19/19 20:01 Last Admin: 03/19/19 20:30 Dose: 4 mg Oxycodone HCl (Oxycontin) 10 mg PO Q12HR [facility] Last Admin: 03/21/19 08:03 Dose: 10 mg Oxycodone HCl (Oxycontin) 10 mg PO ONETIME ONE Stop: 03/21/19 08:45 Last Admin: 03/21/19 09:28 Dose: 10 mg Pantoprazole Sodium (Protonix) 40 mg PO Q12H [facility] Last Admin: 03/20/19 10:31 Dose: 40 mg - Exam Quality Assessment: Central Line/PICC General: Alert, Oriented, Mild Distress HEENT: Pupils Equal, Pupils Reactive, EOMI, Mucous Membr. Moist/Point Blank Lungs: Clear to Auscultation, Normal Respiratory Effort Cardiovascular: Regular Rate, Regular Rhythm GI/Abdominal Exam: Normal Bowel Sounds, Soft, Tender (Generalized tenderness ) Extremities: Normal Inspection, No Pedal Edema, Normal Capillary Refill Peripheral Pulses: 2+: Posterior Tibial (L), Posterior Tibial (R), Dorsalis Pedis (L), Dorsalis Pedis (R) Skin: Warm, Dry, Intact Wound/Incisions: Erythema Improving (on left lower leg ) Neurological: No New Focal Deficit Psy/Mental Status: Alert, Agitated - Problem List Review Problem List Initiated/Reviewed/Updated: Yes - Plan Plan:: Assessment: Acute: S/P Septic Shock - 2/2 Severe Sepsis from CAP, Cellulitis, Pancreatitis and Gastroenteritis - Received initial treatment in ED - Was only on IV vancomycin - Was Significantly Hypotensive and failed volume resuscitation; BP at baseline today was improved - Continue with LR at 150 cc/hr - Mendenhall catheter to monitor intake/output - Sepsis treatment: BS antibiotic for pharmacy to dose and help with management - IV access line and Arterial line: Remove arterial line tomorrow and continue IV line Bacteremia - Cannot r/o Infective Endocarditis - Has hx/o IVDU and Severe Sepsis - Stat 2D echo to r/o vegetations: awaiting report today - IV ATBs with GP and GN coverage - blood cultures demonstrate Group A strep CAP - CT scan report read as areas of consolidation seen posteriorly with both lungs - Sputum Culture pending, Mycoplasma/Strep Pneumonia Ag pending - Decongestant/Expectorant - IS as directed - Serial CXr as indicated Cellulitis - Left Foot - Denies using left foot as infection site - Admits to using IVDU - Last IVDU was 3 moths ago - WBC of 24.84 -> 9.93 and CRP of 22.3 -> 17.9 - IV Vancomycin for pharmacy to dose Gastroenteritis - Likely 2/2 Food Poisoning - Got sick after eating enchiladas - CT scan report read as fluid within the colon and distal small bowel- normally seen with gastroenteritis - Clear liquid diet Thrombocytopenia - Platelet of 106 -> 89 - no baseline for comparison - Likely 2/2 chronic ETOH use - Avoid Heparin for now S/P Hyponatremia - Likely 2/2 Sepsis and Poor Intake - Na of 133 -> 140 - Expect to Improved with Hydration - Monitor Acute Renal Failure, Non-Oliguric - BUN of 91 -> 62 and Cr of 2.6 -> 1.7 - Likely from ATN due to Septic Shock - All electrolytes were abnormal - Avoid nephrotoxic agents - Aggressive Iv hydration - Renal US was normal, ruling out obstruction S/P E-lytes Abnormality - Hypokalemia, K of 2.9 -> 4.1 - Hypochloremia, Cl of 95 -> 107 - Hypocalcemia, Ca of 7.2 -> corrected calcium of 8.4 - 2/2 ARF - Replete and monitor S/P Increased AG Metabolic Acidosis - LA of 3.8 -> 1.7 and AG of 17.9 -> 13.1 - 2/2 Acute Renal Failure and Septic Shock Transaminitis - AST of 209 -> 94, ALT of 110 -> 59 - Improved - Has been drinking ETOH recently - Combined ETOH and Septic Shock - Monitor Pancreatitis - Likely 2/2 ETOH - Lipase of 879 - Clear liquid diet Chronic ETOH User - Unknown quantity how much he drinks a day - CIWAA protocol plus my adjunct medication - Folic Acid, Thiamine, and MVI - Future Consult to Joceline/Dr. Saucedo for evaluation Hemoptysis/Hematemesis - One time episode - Has hx/o Chronic ETOH Use - PPI drip Chronic: Active Smoker and ETOH User Plan: Much improved today Nicotine Patch Daily DVT/GI prophylaxis SCDs for now: Anti-coags are contraindicated Clear liquids diet SW/Cm for d/c planning Code status: full Prognosis: Guarded-critical <Aga Odom T - Last Filed: 03/21/19 20:16> - Patient Data Vitals - Most Recent: Last Vital Signs Temp 36.2 C 03/21/19 20:00 Pulse 65 03/21/19 19:00 Resp 12 03/21/19 20:00 BP 102/66 03/21/19 20:00 Pulse Ox 93 L 03/21/19 20:00 I&O - Last 24 Hours: Intake & Output 03/21/19 03/21/19 03/21/19 06:59 14:59 22:59 Intake Total 3640 1400 3009 Output Total 1000 755 775 Balance 8215 315 0174 Lab Results Last 24 Hours: Laboratory Results - last 24 hr 03/21/19 03/21/19 03/21/19 Range/Units 05:05 05:05 09:03 WBC 9.93 H (4.23-9.07) K/mm3 RBC 3.15 L (4.63-6.08) M/mm3 Hgb 9.7 L D (13.7-17.5) gm/dl Hct 28.3 L (40.1-51.0) % MCV 89.8 (79.0-92.2) fl MCH 30.8 (25.7-32.2) pg MCHC 34.3 (32.2-35.5) g/dl RDW Std Deviation 45.0 H (35.1-43.9) fL Plt Count 89 L (163-337) K/mm3 MPV 12.1 (9.4-12.3) fl Neut % (Auto) 88.6 H (34.0-67.9) % Lymph % (Auto) 8.1 L (21.8-53.1) % Stark % (Auto) 2.4 L (5.3-12.2) % Eos % (Auto) 0 L (0.8-7.0) Baso % (Auto) 0.1 (0.1-1.2) % Neut # (Auto) 8.80 H (1.78-5.38) K/mm3 Lymph # (Auto) 0.80 L (1.32-3.57) K/mm3 Stark # (Auto) 0.24 L (0.30-0.82) K/mm3 Eos # (Auto) 0.00 L (0.04-0.54) K/mm3 Baso # (Auto) 0.01 (0.01-0.08) K/mm3 Manual Slide Review Abnormal smear Sodium 140 (136-145) mEq/L Potassium 4.1 (3.5-5.1) mEq/L Chloride 107 (98-107) mEq/L Carbon Dioxide 24 (21-32) mEq/L Anion Gap 13.1 (5-15) BUN 62 H (7-18) mg/dL Creatinine 1.7 H (0.7-1.3) mg/dL Est Cr Clr Drug Dosing 61.80 mL/min Estimated GFR (MDRD) 47 (>60) mL/min BUN/Creatinine Ratio 36.5 H (14-18) Glucose 166 H (74-106) mg/dL Calcium 6.3 L (8.5-10.1) mg/dL Magnesium 3.1 H (1.8-2.4) mg/dl Total Bilirubin 1.3 H (0.2-1.0) mg/dL AST 94 H (15-37) U/L ALT 59 (16-63) U/L Alkaline Phosphatase 92 (46-116) U/L C-Reactive Protein 17.9 H* (<1.0) mg/dL Total Protein 5.6 L (6.4-8.2) g/dl Albumin 1.4 L (3.4-5.0) g/dl Globulin 4.2 gm/dL Albumin/Globulin Ratio 0.3 L (1-2) Vancomycin Trough 9.1 L (10.0-20.0) Minor Results Last 24 Hours: Microbiology 03/20/19 05:30 Gram Stain - Final Sputum - Expectorated Sputum Culture - Preliminary Beta Streptococcus Group A 03/19/19 21:13 Aerobic Blood Culture - Preliminary Blood - Venous - Lab Draw Beta Streptococcus Group A Anaerobic Blood Culture - Preliminary Beta Streptococcus Group A 03/19/19 20:47 Aerobic Blood Culture - Preliminary Blood - Venous Beta Streptococcus Group A Anaerobic Blood Culture - Preliminary Beta Streptococcus Group A Med Orders - Current: Current Medications Acetaminophen (Tylenol) 975 mg PO Q4H PRN PRN Reason: Pain/Fever Albuterol/Ipratropium (Duoneb 3.0-0.5 Mg/3 Ml) 3 ml NEB Q4H PRN PRN Reason: Shortness Of Breath/wheezing Bisacodyl (Dulcolax) 5 mg PO DAILY PRN PRN Reason: Constipation Chlordiazepoxide HCl (Librium) 25 mg PO Q8H PRN PRN Reason: Withdrawal Symptoms Last Admin: 03/21/19 10:26 Dose: 25 mg Clonidine HCl (Catapres) 0.1 mg PO Q4H PRN PRN Reason: Agitation Diphenhydr/Magaldrate/Simeth/Lidoca (First-Mouthwash Blm Susp) 30 ml PO ASDIRECTED JUANA Last Admin: 03/21/19 14:08 Dose: 30 ml Docusate Sodium (Colace) 100 mg PO BID PRN PRN Reason: Constipation Folic Acid (Folic Acid) 1 mg PO DAILY [facility] Stop: 03/22/19 09:01 Last Admin: 03/21/19 08:04 Dose: 1 mg Guaifenesin/Phenylephrine HCl (Robitussin Dm) 10 ml PO Q4H PRN PRN Reason: Cough Haloperidol Lactate (Haldol) 2 mg IM Q4H PRN PRN Reason: Agitation Hydrocortisone Sodium Succinate (Solu-Cortef) 100 mg IVPUSH Q6H JUANA Last Admin: 03/21/19 20:02 Dose: 100 mg Hydromorphone HCl (Dilaudid) 1 mg IVPUSH Q4H PRN PRN Reason: Pain Last Admin: 03/21/19 20:02 Dose: 1 mg Promethazine HCl 6.25 mg/ (Sodium Chloride) 50.25 mls @ 100 mls/hr IV Q6H PRN PRN Reason: Nausea/Vomiting Norepinephrine Bitartrate 4 mg (/ Dextrose/Water) 250 mls @ 7.5 mls/hr IV TITRATE JUANA; Protocol Last Titration: 03/20/19 21:00 Dose: 0 mcg/min, 0 mls/hr Sodium Chloride (Normal Saline) 1,000 mls @ 150 mls/hr IV ASDIRECTED [facility] Last Admin: 03/21/19 14:06 Dose: 150 mls/hr Meropenem/Sodium Chloride 500 (mg/ Premix) 50 mls @ 100 mls/hr IV Q6H [facility] Last Admin: 03/21/19 20:01 Dose: 100 mls/hr Vancomycin HCl 1 gm/Vancomycin HCl 250 mg/ Sodium Chloride 250 mls @ 166.667 mls/hr IV Q12H JUANA Last Admin: 03/21/19 09:56 Dose: 166.667 mls/hr Lorazepam (Ativan) 1 mg IV Q6H PRN PRN Reason: Anxiety Last Admin: 03/21/19 20:01 Dose: 1 mg Miscellaneous Information (Remove Patch) 1 ea TRDERM DAILY [facility] Last Admin: 03/21/19 09:27 Dose: 1 ea Multivitamins (Thera) 1 each PO DAILY [facility] Last Admin: 03/21/19 08:04 Dose: 1 each Nicotine (Habitrol) 21 mg TRDERM DAILY [facility] Last Admin: 03/21/19 08:05 Dose: 21 mg Ondansetron HCl (Zofran) 4 mg IV Q6H PRN PRN Reason: Nausea/Vomiting Oxycodone HCl (Oxycodone) 5 mg PO Q4H PRN PRN Reason: Pain (moderate 4-6) Oxycodone HCl (Oxycontin) 20 mg PO Q12HR [facility] Last Admin: 03/21/19 20:02 Dose: 20 mg Polyethylene Glycol (Miralax) 17 gm PO DAILY PRN PRN Reason: Constipation Senna/Docusate Sodium (Senna Plus) 1 tab PO BID PRN PRN Reason: Constipation Sodium Chloride (Saline Flush) 10 ml FLUSH ASDIRECTED PRN PRN Reason: Keep Vein Open Last Admin: 03/19/19 21:04 Dose: 10 ml Thiamine HCl (Vitamin B-1) 100 mg PO DAILY [facility] Last Admin: 03/21/19 08:04 Dose: 100 mg Tizanidine HCl (Zanaflex) 4 mg PO Q8H PRN PRN Reason: Spasms Last Admin: 03/21/19 00:51 Dose: 4 mg Vancomycin HCl (Pharmacy To Dose - Vancomycin) 1 dose .XX ASDIRECTED PRN PRN Reason: RX TO DOSE VANCO Discontinued Medications Acetaminophen (Tylenol) 975 mg PO NOW ONE Stop: 03/19/19 22:18 Last Admin: 03/19/19 22:21 Dose: 975 mg Calcium Gluconate (Calcium Gluconate) 2 gm IV ONETIME ONE Stop: 03/20/19 13:02 Last Admin: 03/20/19 13:48 Dose: 2 gm Calcium Gluconate (Calcium Gluconate) 1 gm IV ONETIME ONE Stop: 03/20/19 14:01 Last Admin: 03/20/19 14:09 Dose: Not Given Diatrizoate Meglum/Diatrizoate Sod (Gastrografin 37%) 60 ml PO ONETIME ONE Stop: 03/19/19 20:03 Last Admin: 03/20/19 03:41 Dose: Not Given Gentamicin Sulfate (Pharmacy To Dose - Gentamicin) 0 dose .XX DAILY PRN PRN Reason: RX TO DOSE GENT Hydromorphone HCl (Dilaudid) 0.5 mg IVPUSH ONETIME ONE Stop: 03/19/19 23:44 Last Admin: 03/19/19 23:51 Dose: 0.5 mg Hydromorphone HCl (Dilaudid) 1 mg IVPUSH ONETIME ONE Stop: 03/20/19 00:33 Last Admin: 03/20/19 09:12 Dose: 1 mg Lactated Ringer's (Ringers, Lactated) 2,177 mls @ 1,000 mls/hr IV .BOLUS ONE Stop: 03/19/19 22:07 Last Admin: 03/19/19 20:30 Dose: 1,000 mls/hr Vancomycin HCl 1.75 gm/ Sodium (Chloride) 500 mls @ 250 mls/hr IV ONETIME ONE Stop: 03/19/19 19:59 Last Admin: 03/19/19 20:58 Dose: 250 mls/hr Lactated Ringer's (Ringers, Lactated) 1,000 mls @ 1,000 mls/hr IV .BOLUS ONE Stop: 03/19/19 22:13 Last Admin: 03/19/19 21:30 Dose: 1,000 mls/hr Potassium Chloride 10 meq/ (Premix) 100 mls @ 100 mls/hr IV ONETIME ONE Stop: 03/19/19 22:20 Last Admin: 03/19/19 22:08 Dose: 100 mls/hr Lactated Ringer's (Ringers, Lactated) 1,000 mls @ 150 mls/hr IV ASDIRECTED [facility] Last Admin: 03/19/19 22:56 Dose: 150 mls/hr Sodium Chloride (Normal Saline) 1,000 mls @ 100 mls/hr IV ASDIRECTED [facility] Stop: 03/21/19 00:30 Last Infusion: 03/20/19 17:56 Dose: 150 mls/hr Vancomycin HCl 1.75 gm/ Sodium (Chloride) 500 mls @ 250 mls/hr IV Q24H [facility] Lactated Ringer's (Ringers, Lactated) 1,000 mls @ 999 mls/hr IV .BOLUS ONE Stop: 03/20/19 09:26 Last Admin: 03/20/19 09:15 Dose: 999 mls/hr Piperacillin Sod/Tazobactam (Sod 4.5 gm/ Sodium Chloride) 100 mls @ 200 mls/hr IV ONETIME ONE Stop: 03/20/19 09:29 Last Admin: 03/20/19 09:34 Dose: 200 mls/hr Piperacillin Sod/Tazobactam (Sod 4.5 gm/ Sodium Chloride) 100 mls @ 25 mls/hr IV Q8H [facility] Lactated Ringer's (Ringers, Lactated) 1,000 mls @ 999 mls/hr IV .BOLUS ONE Stop: 03/20/19 10:02 Last Admin: 03/20/19 09:19 Dose: 999 mls/hr Vancomycin HCl 1.75 gm/ Sodium (Chloride) 500 mls @ 250 mls/hr IV Q24H [facility] Last Admin: 03/20/19 18:58 Dose: Not Given Gentamicin Sulfate 70 mg/ (Sodium Chloride) 101.75 mls @ 101.75 mls/hr IV Q12H [facility] Last Admin: 03/20/19 09:56 Dose: 101.75 mls/hr Pantoprazole Sodium 80 mg/ (Sodium Chloride) 100 mls @ 10 mls/hr IV Q10H [facility] Last Admin: 03/21/19 11:43 Dose: Not Given Vancomycin HCl 1 gm/ Sodium (Chloride) 250 mls @ 250 mls/hr IV Q18H [facility] Last Admin: 03/21/19 09:49 Dose: Not Given Meropenem/Sodium Chloride 500 (mg/ Premix) 50 mls @ 100 mls/hr IV Q8H [facility] Last Admin: 03/21/19 01:47 Dose: 100 mls/hr Iopamidol (Isovue-300 (61%)) 100 ml IVPUSH ONETIME ONE Stop: 03/19/19 20:03 Last Admin: 03/20/19 03:41 Dose: Not Given Lorazepam (Ativan) 1 mg IVPUSH ONETIME ONE Stop: 03/20/19 00:39 Last Admin: 03/20/19 02:27 Dose: 1 mg Ondansetron HCl (Zofran) 4 mg IVPUSH ONETIME ONE Stop: 03/19/19 20:01 Last Admin: 03/19/19 20:30 Dose: 4 mg Oxycodone HCl (Oxycontin) 10 mg PO Q12HR [facility] Last Admin: 03/21/19 08:03 Dose: 10 mg Oxycodone HCl (Oxycontin) 10 mg PO ONETIME ONE Stop: 03/21/19 08:45 Last Admin: 03/21/19 09:28 Dose: 10 mg Pantoprazole Sodium (Protonix) 40 mg PO Q12H [facility] Last Admin: 03/20/19 10:31 Dose: 40 mg - My Orders Last 24 Hours: My Active Orders 03/21/19 00:30 Sodium Chloride 0.9% [Normal Saline] 1,000 ml IV ASDIRECTED 03/21/19 08:00 Meropenem Premix [Meropenem] 500 mg Premix Bag 1 bag IV Q6H 03/21/19 09:00 Remove Patch 1 ea TRDERM DAILY oxyCODONE ER [OxyCONTIN] 20 mg PO Q12HR 03/21/19 10:00 Vancomycin 1 gm Vancomycin 250 mg Sodium Chloride 0.9% [Normal Saline] 250 ml IV Q12H 03/21/19 12:15 Diphenhyd/Lidocaine/MagAl/Valerie [First-Mouthwash BLM Susp] 30 ml PO ASDIRECTED 03/21/19 12:19 MYCOPLASMA PNEUMONIAE IGM AB [CHEM] Stat 03/21/19 13:42 STREP PNEUMONIAE ANTIGEN [MREF] Stat 03/21/19 Dinner Full Liquid Diet [DIET] 03/22/19 05:11 BASIC METABOLIC PANEL,BMP [CHEM] AM C-REACTIVE PROTEIN [CHEM] AM CBC WITH AUTO DIFF [HEME] AM COMPREHENSIVE METABOLIC PN,CMP [CHEM] AM LIPASE [CHEM] AM MAGNESIUM [CHEM] AM 03/22/19 19:00 VANCOMYCIN TROUGH [CHEM] Timed 03/23/19 05:11 BASIC METABOLIC PANEL,BMP [CHEM] AM C-REACTIVE PROTEIN [CHEM] AM CBC WITH AUTO DIFF [HEME] AM COMPREHENSIVE METABOLIC PN,CMP [CHEM] AM MAGNESIUM [CHEM] AM 03/24/19 05:11 BASIC METABOLIC PANEL,BMP [CHEM] AM C-REACTIVE PROTEIN [CHEM] AM CBC WITH AUTO DIFF [HEME] AM COMPREHENSIVE METABOLIC PN,CMP [CHEM] AM MAGNESIUM [CHEM] AM 03/25/19 05:11 BASIC METABOLIC PANEL,BMP [CHEM] AM C-REACTIVE PROTEIN [CHEM] AM CBC WITH AUTO DIFF [HEME] AM COMPREHENSIVE METABOLIC PN,CMP [CHEM] AM MAGNESIUM [CHEM] AM - Plan Plan:: Patient was seen and examined at bedside in concert with the medical student. The assessment and plans were discussed and agreed upon with me. Patient over the course of 24hrs considerably improved. His he is now off pressor ip and his pressures are holding up nicely. He is complaints of diffuse pain and has been asking pain medications routinely. Ordered Oxycodone 10 mg po Q12H to minimize PRN pain meds. He likely has low threshold for pain. Educated patient about pain medications and opioid abuse.
[2019-03-21] MEDS: Diphenhydramine/Lidocaine/MagAl/Simethicone 119 ML Bottle PO SCH (14:08)
[2019-03-22] MEDS: HYDROmorphone 1 MG/ML Syringe IVPUSH PRN ×2 (00:03→04:27)
[2019-03-22] MEDS: Meropenem Premix 500 MG in Premix Bag 1 BAG IV SCH ×4 (01:56→20:26)
[2019-03-22] MEDS: Hydrocortisone Sodium Succinate 100 MG/2 ML SDV IVPUSH SCH ×2 (02:00→09:16)
[2019-03-22] MEDS: LORazepam 2 MG/ML SDV IV PRN (02:02)
[2019-03-22] MEDS: Sodium Chloride 0.9% 1,000 ML IV SCH ×4 (02:30→23:39)
[2019-03-22] MEDS: Diphenhydramine/Lidocaine/MagAl/Simethicone 119 ML Bottle PO SCH (07:58)
[2019-03-22] MEDS: Nicotine 21 MG/24 Hr Patch TRDERM SCH ×2 (08:06→08:12)
[2019-03-22] MEDS: Multivitamins,Therapeutic Tab PO SCH (08:07)
[2019-03-22] MEDS: Folic Acid 1 MG Tab PO SCH (08:07)
[2019-03-22] MEDS: Thiamine 100 MG Tab PO SCH (08:07)
[2019-03-22] MEDS: oxyCODONE ER 20 MG TAB.ER PO SCH ×2 (08:07→20:21)
[2019-03-22] MEDS: Vancomycin 1 GM, Vancomycin 250 MG in Sodium Chloride 0.9% 250 ML IV SCH ×2 (10:35→22:02)
[2019-03-22] MEDS: tiZANidine 4 MG Tab PO PRN (11:31)
[2019-03-22] MEDS: Pantoprazole 40 MG Tab.CR PO SCH (11:31)
--- NOTE | 2019-03-22 11:54 | PCM.PN ---
<Stacy Hanson - Last Filed: 03/22/19 13:00> - General Info Date of Service: 03/22/19 Admission Dx/Problem (Free Text): Admission Diagnosis/Problem Admission Diagnosis/Problem Sepsis Subjective Update: Patient appears better today. He continues to complain of pain, particularly a sharp, abdominal pain that radiates to his back and intermittent back pain. He is accompanied by his friend today. He does report flatus and a single small bowel movement earlier today. Functional Status: Reports: Tolerating Diet, Urinating - Review of Systems General: Reports: No Symptoms HEENT: Reports: No Symptoms Pulmonary: Reports: No Symptoms Cardiovascular: Reports: No Symptoms Gastrointestinal: Reports: Abdominal Pain, Diarrhea, Flatus Genitourinary: Reports: No Symptoms Musculoskeletal: Reports: No Symptoms Skin: Reports: No Symptoms Neurological: Reports: No Symptoms Psychiatric: Reports: No Symptoms - Patient Data Vitals - Most Recent: Last Vital Signs Temp 97.4 F 03/22/19 11:38 Pulse 73 03/22/19 01:00 Resp 14 03/22/19 10:00 BP 139/70 03/22/19 11:38 Pulse Ox 92 L 03/22/19 10:28 Weight - Most Recent: 69.1 kg I&O - Last 24 Hours: Intake & Output 03/21/19 03/22/19 03/22/19 22:59 06:59 14:59 Intake Total 3009 2014 360 Output Total 1000 850 275 Balance 2008 1164 85 Lab Results Last 24 Hours: Laboratory Results - last 24 hr 03/20/19 03/21/19 03/22/19 Range/Units 16:38 12:19 04:27 WBC 8.68 (4.23-9.07) K/mm3 RBC 2.97 L (4.63-6.08) M/mm3 Hgb 9.3 L (13.7-17.5) gm/dl Hct 27.0 L (40.1-51.0) % MCV 90.9 (79.0-92.2) fl MCH 31.3 (25.7-32.2) pg MCHC 34.4 (32.2-35.5) g/dl RDW Std Deviation 44.7 H (35.1-43.9) fL Plt Count 126 L (163-337) K/mm3 MPV 11.4 (9.4-12.3) fl Neut % (Auto) 89.2 H (34.0-67.9) % Lymph % (Auto) 7.4 L (21.8-53.1) % Braxton % (Auto) 3.3 L (5.3-12.2) % Eos % (Auto) 0 L (0.8-7.0) Baso % (Auto) 0.1 (0.1-1.2) % Neut # (Auto) 7.74 H (1.78-5.38) K/mm3 Lymph # (Auto) 0.64 L (1.32-3.57) K/mm3 Braxton # (Auto) 0.29 L (0.30-0.82) K/mm3 Eos # (Auto) 0.00 L (0.04-0.54) K/mm3 Baso # (Auto) 0.01 (0.01-0.08) K/mm3 Manual Slide Review Abnormal smear Sodium (136-145) mEq/L Potassium (3.5-5.1) mEq/L Chloride (98-107) mEq/L Carbon Dioxide (21-32) mEq/L Anion Gap (5-15) BUN (7-18) mg/dL Creatinine (0.7-1.3) mg/dL Est Cr Clr Drug Dosing mL/min Estimated GFR (MDRD) (>60) mL/min BUN/Creatinine Ratio (14-18) Glucose (74-106) mg/dL Calcium (8.5-10.1) mg/dL Magnesium (1.8-2.4) mg/dl Total Bilirubin (0.2-1.0) mg/dL AST (15-37) U/L ALT (16-63) U/L Alkaline Phosphatase (46-116) U/L C-Reactive Protein (<1.0) mg/dL Total Protein (6.4-8.2) g/dl Albumin (3.4-5.0) g/dl Globulin gm/dL Albumin/Globulin Ratio (1-2) Lipase (73-393) U/L Cortisol 85.6 ug/dL Mycoplasma pneumon IgM Positive H (NEGATIVE) 03/22/19 Range/Units 04:27 WBC (4.23-9.07) K/mm3 RBC (4.63-6.08) M/mm3 Hgb (13.7-17.5) gm/dl Hct (40.1-51.0) % MCV (79.0-92.2) fl MCH (25.7-32.2) pg MCHC (32.2-35.5) g/dl RDW Std Deviation (35.1-43.9) fL Plt Count (163-337) K/mm3 MPV (9.4-12.3) fl Neut % (Auto) (34.0-67.9) % Lymph % (Auto) (21.8-53.1) % Braxton % (Auto) (5.3-12.2) % Eos % (Auto) (0.8-7.0) Baso % (Auto) (0.1-1.2) % Neut # (Auto) (1.78-5.38) K/mm3 Lymph # (Auto) (1.32-3.57) K/mm3 Braxton # (Auto) (0.30-0.82) K/mm3 Eos # (Auto) (0.04-0.54) K/mm3 Baso # (Auto) (0.01-0.08) K/mm3 Manual Slide Review Sodium 143 (136-145) mEq/L Potassium 4.2 (3.5-5.1) mEq/L Chloride 113 H (98-107) mEq/L Carbon Dioxide 23 (21-32) mEq/L Anion Gap 11.2 (5-15) BUN 47 H (7-18) mg/dL Creatinine 1.3 (0.7-1.3) mg/dL Est Cr Clr Drug Dosing 78.99 mL/min Estimated GFR (MDRD) > 60 (>60) mL/min BUN/Creatinine Ratio 36.2 H (14-18) Glucose 150 H (74-106) mg/dL Calcium 6.1 L (8.5-10.1) mg/dL Magnesium 2.9 H (1.8-2.4) mg/dl Total Bilirubin 1.0 (0.2-1.0) mg/dL AST 50 H (15-37) U/L ALT 41 (16-63) U/L Alkaline Phosphatase 72 (46-116) U/L C-Reactive Protein 9.2 H* (<1.0) mg/dL Total Protein 5.4 L (6.4-8.2) g/dl Albumin 1.4 L (3.4-5.0) g/dl Globulin 4.0 gm/dL Albumin/Globulin Ratio 0.4 L (1-2) Lipase 133 (73-393) U/L Cortisol ug/dL Mycoplasma pneumon IgM (NEGATIVE) Minor Results Last 24 Hours: Microbiology 03/20/19 05:30 Gram Stain - Final Sputum - Expectorated Sputum Culture - Preliminary Beta Streptococcus Group A Staphylococcus Aureus 03/19/19 21:13 Aerobic Blood Culture - Preliminary Blood - Venous - Lab Draw Beta Streptococcus Group A Anaerobic Blood Culture - Preliminary Beta Streptococcus Group A 03/19/19 20:47 Aerobic Blood Culture - Preliminary Blood - Venous Beta Streptococcus Group A Anaerobic Blood Culture - Preliminary Beta Streptococcus Group A Med Orders - Current: Current Medications Acetaminophen (Tylenol) 975 mg PO Q4H PRN PRN Reason: Pain/Fever Albuterol/Ipratropium (Duoneb 3.0-0.5 Mg/3 Ml) 3 ml NEB Q4H PRN PRN Reason: Shortness Of Breath/wheezing Bisacodyl (Dulcolax) 5 mg PO DAILY PRN PRN Reason: Constipation Chlordiazepoxide HCl (Librium) 25 mg PO Q8H PRN PRN Reason: Withdrawal Symptoms Last Admin: 03/21/19 10:26 Dose: 25 mg Clonidine HCl (Catapres) 0.1 mg PO Q4H PRN PRN Reason: Agitation Diphenhydr/Magaldrate/Simeth/Lidoca (First-Mouthwash Blm Susp) 30 ml PO ASDIRECTED [facility] Last Admin: 03/22/19 07:58 Dose: 30 ml Docusate Sodium (Colace) 100 mg PO BID PRN PRN Reason: Constipation Guaifenesin/Phenylephrine HCl (Robitussin Dm) 10 ml PO Q4H PRN PRN Reason: Cough Haloperidol Lactate (Haldol) 2 mg IM Q4H PRN PRN Reason: Agitation Hydromorphone HCl (Dilaudid) 1 mg IVPUSH Q4H PRN PRN Reason: Pain Last Admin: 03/22/19 04:27 Dose: 1 mg Promethazine HCl 6.25 mg/ (Sodium Chloride) 50.25 mls @ 100 mls/hr IV Q6H PRN PRN Reason: Nausea/Vomiting Norepinephrine Bitartrate 4 mg (/ Dextrose/Water) 250 mls @ 7.5 mls/hr IV TITRATE [facility]; Protocol Last Titration: 03/20/19 21:00 Dose: 0 mcg/min, 0 mls/hr Sodium Chloride (Normal Saline) 1,000 mls @ 150 mls/hr IV ASDIRECTED [facility] Last Admin: 03/22/19 09:14 Dose: 150 mls/hr Meropenem/Sodium Chloride 500 (mg/ Premix) 50 mls @ 100 mls/hr IV Q6H [facility] Last Admin: 03/22/19 07:41 Dose: 100 mls/hr Vancomycin HCl 1 gm/Vancomycin HCl 250 mg/ Sodium Chloride 250 mls @ 166.667 mls/hr IV Q12H [facility] Last Admin: 03/22/19 10:35 Dose: 166.667 mls/hr Lorazepam (Ativan) 1 mg IV Q6H PRN PRN Reason: Anxiety Last Admin: 03/22/19 02:02 Dose: 1 mg Metoclopramide HCl (Reglan) 10 mg IVPUSH Q6H [facility] Miscellaneous Information (Remove Patch) 1 ea TRDERM DAILY [facility] Last Admin: 03/22/19 08:07 Dose: 1 ea Multivitamins (Thera) 1 each PO DAILY [facility] Last Admin: 03/22/19 08:07 Dose: 1 each Nicotine (Habitrol) 21 mg TRDERM DAILY [facility] Last Admin: 03/22/19 08:12 Dose: Not Given Ondansetron HCl (Zofran) 4 mg IV Q6H PRN PRN Reason: Nausea/Vomiting Oxycodone HCl (Oxycodone) 5 mg PO Q4H PRN PRN Reason: Pain (moderate 4-6) Oxycodone HCl (Oxycontin) 20 mg PO Q12HR [facility] Last Admin: 03/22/19 08:07 Dose: 20 mg Pantoprazole Sodium (Protonix) 40 mg PO DAILY@0700 [facility] Last Admin: 03/22/19 11:31 Dose: 40 mg Polyethylene Glycol (Miralax) 17 gm PO DAILY PRN PRN Reason: Constipation Senna/Docusate Sodium (Senna Plus) 1 tab PO BID PRN PRN Reason: Constipation Sodium Chloride (Saline Flush) 10 ml FLUSH ASDIRECTED PRN PRN Reason: Keep Vein Open Last Admin: 03/19/19 21:04 Dose: 10 ml Thiamine HCl (Vitamin B-1) 100 mg PO DAILY [facility] Last Admin: 03/22/19 08:07 Dose: 100 mg Tizanidine HCl (Zanaflex) 4 mg PO Q8H PRN PRN Reason: Spasms Last Admin: 03/22/19 11:31 Dose: 4 mg Vancomycin HCl (Pharmacy To Dose - Vancomycin) 1 dose .XX ASDIRECTED PRN PRN Reason: RX TO DOSE VANCO Discontinued Medications Acetaminophen (Tylenol) 975 mg PO NOW ONE Stop: 03/19/19 22:18 Last Admin: 03/19/19 22:21 Dose: 975 mg Calcium Gluconate (Calcium Gluconate) 2 gm IV ONETIME ONE Stop: 03/20/19 13:02 Last Admin: 03/20/19 13:48 Dose: 2 gm Calcium Gluconate (Calcium Gluconate) 1 gm IV ONETIME ONE Stop: 03/20/19 14:01 Last Admin: 03/20/19 14:09 Dose: Not Given Diatrizoate Meglum/Diatrizoate Sod (Gastrografin 37%) 60 ml PO ONETIME ONE Stop: 03/19/19 20:03 Last Admin: 03/20/19 03:41 Dose: Not Given Folic Acid (Folic Acid) 1 mg PO DAILY [facility] Stop: 03/22/19 09:01 Last Admin: 03/22/19 08:07 Dose: 1 mg Gentamicin Sulfate (Pharmacy To Dose - Gentamicin) 0 dose .XX DAILY PRN PRN Reason: RX TO DOSE GENT Hydrocortisone Sodium Succinate (Solu-Cortef) 100 mg IVPUSH Q6H [facility] Last Admin: 03/22/19 09:16 Dose: Not Given Hydromorphone HCl (Dilaudid) 0.5 mg IVPUSH ONETIME ONE Stop: 03/19/19 23:44 Last Admin: 03/19/19 23:51 Dose: 0.5 mg Hydromorphone HCl (Dilaudid) 1 mg IVPUSH ONETIME ONE Stop: 03/20/19 00:33 Last Admin: 03/20/19 09:12 Dose: 1 mg Lactated Ringer's (Ringers, Lactated) 2,177 mls @ 1,000 mls/hr IV .BOLUS ONE Stop: 03/19/19 22:07 Last Admin: 03/19/19 20:30 Dose: 1,000 mls/hr Vancomycin HCl 1.75 gm/ Sodium (Chloride) 500 mls @ 250 mls/hr IV ONETIME ONE Stop: 03/19/19 19:59 Last Admin: 03/19/19 20:58 Dose: 250 mls/hr Lactated Ringer's (Ringers, Lactated) 1,000 mls @ 1,000 mls/hr IV .BOLUS ONE Stop: 03/19/19 22:13 Last Admin: 03/19/19 21:30 Dose: 1,000 mls/hr Potassium Chloride 10 meq/ (Premix) 100 mls @ 100 mls/hr IV ONETIME ONE Stop: 03/19/19 22:20 Last Admin: 03/19/19 22:08 Dose: 100 mls/hr Lactated Ringer's (Ringers, Lactated) 1,000 mls @ 150 mls/hr IV ASDIRECTED [facility] Last Admin: 03/19/19 22:56 Dose: 150 mls/hr Sodium Chloride (Normal Saline) 1,000 mls @ 100 mls/hr IV ASDIRECTED [facility] Stop: 03/21/19 00:30 Last Infusion: 03/20/19 17:56 Dose: 150 mls/hr Vancomycin HCl 1.75 gm/ Sodium (Chloride) 500 mls @ 250 mls/hr IV Q24H [facility] Lactated Ringer's (Ringers, Lactated) 1,000 mls @ 999 mls/hr IV .BOLUS ONE Stop: 03/20/19 09:26 Last Admin: 03/20/19 09:15 Dose: 999 mls/hr Piperacillin Sod/Tazobactam (Sod 4.5 gm/ Sodium Chloride) 100 mls @ 200 mls/hr IV ONETIME ONE Stop: 03/20/19 09:29 Last Admin: 03/20/19 09:34 Dose: 200 mls/hr Piperacillin Sod/Tazobactam (Sod 4.5 gm/ Sodium Chloride) 100 mls @ 25 mls/hr IV Q8H [facility] Lactated Ringer's (Ringers, Lactated) 1,000 mls @ 999 mls/hr IV .BOLUS ONE Stop: 03/20/19 10:02 Last Admin: 03/20/19 09:19 Dose: 999 mls/hr Vancomycin HCl 1.75 gm/ Sodium (Chloride) 500 mls @ 250 mls/hr IV Q24H [facility] Last Admin: 03/20/19 18:58 Dose: Not Given Gentamicin Sulfate 70 mg/ (Sodium Chloride) 101.75 mls @ 101.75 mls/hr IV Q12H [facility] Last Admin: 03/20/19 09:56 Dose: 101.75 mls/hr Pantoprazole Sodium 80 mg/ (Sodium Chloride) 100 mls @ 10 mls/hr IV Q10H [facility] Last Admin: 03/21/19 11:43 Dose: Not Given Vancomycin HCl 1 gm/ Sodium (Chloride) 250 mls @ 250 mls/hr IV Q18H [facility] Last Admin: 03/21/19 09:49 Dose: Not Given Meropenem/Sodium Chloride 500 (mg/ Premix) 50 mls @ 100 mls/hr IV Q8H [facility] Last Admin: 03/21/19 01:47 Dose: 100 mls/hr Iopamidol (Isovue-300 (61%)) 100 ml IVPUSH ONETIME ONE Stop: 03/19/19 20:03 Last Admin: 03/20/19 03:41 Dose: Not Given Lorazepam (Ativan) 1 mg IVPUSH ONETIME ONE Stop: 03/20/19 00:39 Last Admin: 03/20/19 02:27 Dose: 1 mg Ondansetron HCl (Zofran) 4 mg IVPUSH ONETIME ONE Stop: 03/19/19 20:01 Last Admin: 03/19/19 20:30 Dose: 4 mg Oxycodone HCl (Oxycontin) 10 mg PO Q12HR [facility] Last Admin: 03/21/19 08:03 Dose: 10 mg Oxycodone HCl (Oxycontin) 10 mg PO ONETIME ONE Stop: 03/21/19 08:45 Last Admin: 03/21/19 09:28 Dose: 10 mg Pantoprazole Sodium (Protonix) 40 mg PO Q12H [facility] Last Admin: 03/20/19 10:31 Dose: 40 mg - Exam General: Alert, Oriented HEENT: Pupils Equal, EOMI, Mucous Membr. Moist/[place] Lungs: Clear to Auscultation, Normal Respiratory Effort Cardiovascular: Regular Rate, Regular Rhythm GI/Abdominal Exam: Tender (Generalized tenderness) Extremities: Normal Inspection, No Pedal Edema, Normal Capillary Refill Skin: Warm, Dry, Intact Wound/Incisions: Erythema Improving Neurological: No New Focal Deficit Psy/Mental Status: Alert, Normal Affect, Normal Mood - Problem List Review Problem List Initiated/Reviewed/Updated: Yes - Plan Plan:: Assessment: Acute: S/P Septic Shock - 2/2 Severe Sepsis from CAP, Cellulitis, Pancreatitis and Gastroenteritis - Received initial treatment in ED - Was only on IV vancomycin - Was Significantly Hypotensive and failed volume resuscitation; BP at baseline today was improved - Continue with LR at 150 cc/hr - [place] catheter to monitor intake/output - Sepsis treatment: BS antibiotic for pharmacy to dose and help with management - IV access line and Arterial line: Remove arterial line tomorrow and continue IV line Bacteremia - 2D echo showed no evidence of vegetations - Has hx/o IVDU and Severe Sepsis - IV ATBs with GP and GN coverage - blood cultures demonstrate Group A strep CAP - CT scan report read as areas of consolidation seen posteriorly with both lungs - Sputum culture demonstrated group A strep as well as staphylococcus, Mycoplasma antigen was positive - Decongestant/Expectorant - IS as directed - Serial CXr as indicated Cellulitis - Improving with decreased erythema today - Left Foot - Denies using left foot as infection site - Admits to using IVDU - Last IVDU was 3 moths ago - WBC of 24.84 -> 9.93 -> 8.68 and CRP of 22.3 -> 17.9 -> 9.2 - IV Vancomycin for pharmacy to dose Gastroenteritis - Likely 2/2 Food Poisoning - Got sick after eating enchiladas - CT scan report read as fluid within the colon and distal small bowel- normally seen with gastroenteritis - Advance diet as tolerated Kaiden's syndrome - Dilated colon on Abdominal xray - History of acute, severe illness - Reglan prescribed to increase GI motility - Repeat KUB Thrombocytopenia - Platelet of 106 -> 89 -> 126 - no baseline for comparison - Likely 2/2 chronic ETOH use - Avoid Heparin for now S/P Hyponatremia - Likely 2/2 Sepsis and Poor Intake - Na of 133 -> 140 -> 134 - Expect to Improved with Hydration - Monitor S/P Acute Renal Failure, Non-Oliguric - BUN of 91 -> 62 and Cr of 2.6 -> 1.7 -> 1.5 - eGFR > 60 - Likely from ATN due to Septic Shock - All electrolytes were abnormal - Avoid nephrotoxic agents - Aggressive Iv hydration - Renal US was normal, ruling out obstruction S/P E-lytes Abnormality - Hypokalemia, K of 2.9 -> 4.1 -> 4.2 - Hypochloremia, Cl of 95 -> 107 -> 113 - Hypocalcemia, Ca of 7.2 -> corrected calcium of 8.4 -> corrected calcium of 8.2 - 2/2 ARF - Replete and monitor S/P Increased AG Metabolic Acidosis - LA of 3.8 -> 1.7 and AG of 17.9 -> 13.1 -> 11.2 - 2/2 Acute Renal Failure and Septic Shock Transaminitis - AST of 209 -> 94 -> 50, ALT of 110 -> 59 -> 41 - Improved - Has been drinking ETOH recently - Combined ETOH and Septic Shock - Monitor Pancreatitis - Likely 2/2 ETOH - Lipase of 879 - Diet as tolerated Chronic ETOH User - Unknown quantity how much he drinks a day - CIWAA protocol plus my adjunct medication - Folic Acid, Thiamine, and MVI - Consult to Joceline/Dr. Saucedo for evaluation with possible discharge Monday Hemoptysis/Hematemesis - One time episode - Has hx/o Chronic ETOH Use - PPI drip Chronic: Active Smoker and ETOH User Plan: Much improved today Pain management: patient was educated about pain medications and opioid abuse. We will begin to taper his pain medication. Nicotine Patch Daily DVT/GI prophylaxis SCDs for now: Anti-coags are contraindicated Diet as tolerated SW/ for d/c planning Code status: full Prognosis: Guarded-critical <Aga Odom T - Last Filed: 03/22/19 20:39> - General Info Subjective Update: He is doing much better clinically. However his pain poorly controlled. - Patient Data Vitals - Most Recent: Last Vital Signs Temp 36.4 C 03/22/19 16:00 Pulse 73 03/22/19 01:00 Resp 16 03/22/19 18:30 BP 122/71 03/22/19 18:30 Pulse Ox 93 L 03/22/19 18:47 I&O - Last 24 Hours: Intake & Output 03/22/19 03/22/19 03/22/19 06:59 14:59 22:59 Intake Total 2013 6600 3479 Output Total 261 945 270 Balance 0091 375 1711 Lab Results Last 24 Hours: Laboratory Results - last 24 hr 03/20/19 03/21/19 03/22/19 Range/Units 16:38 12:19 04:27 WBC 8.68 (4.23-9.07) K/mm3 RBC 2.97 L (4.63-6.08) M/mm3 Hgb 9.3 L (13.7-17.5) gm/dl Hct 27.0 L (40.1-51.0) % MCV 90.9 (79.0-92.2) fl MCH 31.3 (25.7-32.2) pg MCHC 34.4 (32.2-35.5) g/dl RDW Std Deviation 44.7 H (35.1-43.9) fL Plt Count 126 L (163-337) K/mm3 MPV 11.4 (9.4-12.3) fl Neut % (Auto) 89.2 H (34.0-67.9) % Lymph % (Auto) 7.4 L (21.8-53.1) % Braxton % (Auto) 3.3 L (5.3-12.2) % Eos % (Auto) 0 L (0.8-7.0) Baso % (Auto) 0.1 (0.1-1.2) % Neut # (Auto) 7.74 H (1.78-5.38) K/mm3 Lymph # (Auto) 0.64 L (1.32-3.57) K/mm3 Braxton # (Auto) 0.29 L (0.30-0.82) K/mm3 Eos # (Auto) 0.00 L (0.04-0.54) K/mm3 Baso # (Auto) 0.01 (0.01-0.08) K/mm3 Manual Slide Review Abnormal smear Sodium (136-145) mEq/L Potassium (3.5-5.1) mEq/L Chloride (98-107) mEq/L Carbon Dioxide (21-32) mEq/L Anion Gap (5-15) BUN (7-18) mg/dL Creatinine (0.7-1.3) mg/dL Est Cr Clr Drug Dosing mL/min Estimated GFR (MDRD) (>60) mL/min BUN/Creatinine Ratio (14-18) Glucose (74-106) mg/dL Calcium (8.5-10.1) mg/dL Magnesium (1.8-2.4) mg/dl Total Bilirubin (0.2-1.0) mg/dL AST (15-37) U/L ALT (16-63) U/L Alkaline Phosphatase (46-116) U/L C-Reactive Protein (<1.0) mg/dL Total Protein (6.4-8.2) g/dl Albumin (3.4-5.0) g/dl Globulin gm/dL Albumin/Globulin Ratio (1-2) Lipase (73-393) U/L Cortisol 85.6 ug/dL Mycoplasma pneumon IgM Positive H (NEGATIVE) 03/22/19 Range/Units 04:27 WBC (4.23-9.07) K/mm3 RBC (4.63-6.08) M/mm3 Hgb (13.7-17.5) gm/dl Hct (40.1-51.0) % MCV (79.0-92.2) fl MCH (25.7-32.2) pg MCHC (32.2-35.5) g/dl RDW Std Deviation (35.1-43.9) fL Plt Count (163-337) K/mm3 MPV (9.4-12.3) fl Neut % (Auto) (34.0-67.9) % Lymph % (Auto) (21.8-53.1) % Braxton % (Auto) (5.3-12.2) % Eos % (Auto) (0.8-7.0) Baso % (Auto) (0.1-1.2) % Neut # (Auto) (1.78-5.38) K/mm3 Lymph # (Auto) (1.32-3.57) K/mm3 Braxton # (Auto) (0.30-0.82) K/mm3 Eos # (Auto) (0.04-0.54) K/mm3 Baso # (Auto) (0.01-0.08) K/mm3 Manual Slide Review Sodium 143 (136-145) mEq/L Potassium 4.2 (3.5-5.1) mEq/L Chloride 113 H (98-107) mEq/L Carbon Dioxide 23 (21-32) mEq/L Anion Gap 11.2 (5-15) BUN 47 H (7-18) mg/dL Creatinine 1.3 (0.7-1.3) mg/dL Est Cr Clr Drug Dosing 78.99 mL/min Estimated GFR (MDRD) > 60 (>60) mL/min BUN/Creatinine Ratio 36.2 H (14-18) Glucose 150 H (74-106) mg/dL Calcium 6.1 L (8.5-10.1) mg/dL Magnesium 2.9 H (1.8-2.4) mg/dl Total Bilirubin 1.0 (0.2-1.0) mg/dL AST 50 H (15-37) U/L ALT 41 (16-63) U/L Alkaline Phosphatase 72 (46-116) U/L C-Reactive Protein 9.2 H* (<1.0) mg/dL Total Protein 5.4 L (6.4-8.2) g/dl Albumin 1.4 L (3.4-5.0) g/dl Globulin 4.0 gm/dL Albumin/Globulin Ratio 0.4 L (1-2) Lipase 133 (73-393) U/L Cortisol ug/dL Mycoplasma pneumon IgM (NEGATIVE) Minor Results Last 24 Hours: Microbiology 03/19/19 21:13 Aerobic Blood Culture - Preliminary Blood - Venous - Lab Draw Beta Streptococcus Group A Anaerobic Blood Culture - Preliminary Beta Streptococcus Group A 03/19/19 20:47 Aerobic Blood Culture - Preliminary Blood - Venous Beta Streptococcus Group A Anaerobic Blood Culture - Preliminary Beta Streptococcus Group A 03/20/19 05:30 Gram Stain - Final Sputum - Expectorated Sputum Culture - Preliminary Beta Streptococcus Group A Staphylococcus Aureus Med Orders - Current: Current Medications Acetaminophen (Tylenol) 975 mg PO Q4H PRN PRN Reason: Pain/Fever Albuterol/Ipratropium (Duoneb 3.0-0.5 Mg/3 Ml) 3 ml NEB Q4H PRN PRN Reason: Shortness Of Breath/wheezing Bisacodyl (Dulcolax) 5 mg PO DAILY PRN PRN Reason: Constipation Clonidine HCl (Catapres) 0.1 mg PO Q4H PRN PRN Reason: Agitation Diphenhydr/Magaldrate/Simeth/Lidoca (First-Mouthwash Blm Susp) 30 ml PO ASDIRECTED [facility] Last Admin: 03/22/19 07:58 Dose: 30 ml Docusate Sodium (Colace) 100 mg PO BID PRN PRN Reason: Constipation Enoxaparin Sodium (Lovenox) 40 mg SUBCUT Q24H [facility] Last Admin: 03/22/19 18:18 Dose: 40 mg Gabapentin (Neurontin) 100 mg PO TID [facility] Last Admin: 03/22/19 14:35 Dose: 100 mg Guaifenesin/Phenylephrine HCl (Robitussin Dm) 10 ml PO Q4H PRN PRN Reason: Cough Haloperidol Lactate (Haldol) 2 mg IM Q4H PRN PRN Reason: Agitation Hydromorphone HCl (Dilaudid) 1 mg IVPUSH Q4H PRN PRN Reason: Pain Last Admin: 03/22/19 04:27 Dose: 1 mg Promethazine HCl 6.25 mg/ (Sodium Chloride) 50.25 mls @ 100 mls/hr IV Q6H PRN PRN Reason: Nausea/Vomiting Norepinephrine Bitartrate 4 mg (/ Dextrose/Water) 250 mls @ 7.5 mls/hr IV TITRATE [facility]; Protocol Last Titration: 03/20/19 21:00 Dose: 0 mcg/min, 0 mls/hr Sodium Chloride (Normal Saline) 1,000 mls @ 150 mls/hr IV ASDIRECTED [facility] Last Admin: 03/22/19 16:12 Dose: 150 mls/hr Meropenem/Sodium Chloride 500 (mg/ Premix) 50 mls @ 100 mls/hr IV Q6H [facility] Last Admin: 03/22/19 13:34 Dose: 100 mls/hr Vancomycin HCl 1 gm/Vancomycin HCl 250 mg/ Sodium Chloride 250 mls @ 166.667 mls/hr IV Q12H [facility] Last Admin: 03/22/19 10:35 Dose: 166.667 mls/hr Azithromycin 500 mg/ Sodium (Chloride) 250 mls @ 250 mls/hr IV Q24H [facility] Last Admin: 03/22/19 16:05 Dose: 250 mls/hr Ketorolac Tromethamine (Toradol) 30 mg IVPUSH Q6H PRN PRN Reason: Pain Last Admin: 03/22/19 14:35 Dose: 30 mg Lorazepam (Ativan) 1 mg IV Q6H PRN PRN Reason: Anxiety Last Admin: 03/22/19 02:02 Dose: 1 mg Metoclopramide HCl (Reglan) 10 mg IVPUSH Q6H [facility] Last Admin: 03/22/19 18:18 Dose: 10 mg Miscellaneous Information (Remove Patch) 1 ea TRDERM DAILY [facility] Last Admin: 03/22/19 08:07 Dose: 1 ea Multivitamins (Thera) 1 each PO DAILY [facility] Last Admin: 03/22/19 08:07 Dose: 1 each Nicotine (Habitrol) 21 mg TRDERM DAILY [facility] Last Admin: 03/22/19 08:12 Dose: Not Given Ondansetron HCl (Zofran) 4 mg IV Q6H PRN PRN Reason: Nausea/Vomiting Oxycodone HCl (Oxycodone) 5 mg PO Q4H PRN PRN Reason: Pain (moderate 4-6) Last Admin: 03/22/19 18:18 Dose: 5 mg Oxycodone HCl (Oxycontin) 20 mg PO Q12HR [facility] Last Admin: 03/22/19 08:07 Dose: 20 mg Pantoprazole Sodium (Protonix) 40 mg PO DAILY@0700 [facility] Last Admin: 03/22/19 11:31 Dose: 40 mg Polyethylene Glycol (Miralax) 17 gm PO DAILY PRN PRN Reason: Constipation Senna/Docusate Sodium (Senna Plus) 1 tab PO BID PRN PRN Reason: Constipation Sodium Chloride (Saline Flush) 10 ml FLUSH ASDIRECTED PRN PRN Reason: Keep Vein Open Last Admin: 03/19/19 21:04 Dose: 10 ml Thiamine HCl (Vitamin B-1) 100 mg PO DAILY [facility] Last Admin: 03/22/19 08:07 Dose: 100 mg Tizanidine HCl (Zanaflex) 4 mg PO Q8H PRN PRN Reason: Spasms Last Admin: 03/22/19 11:31 Dose: 4 mg Vancomycin HCl (Pharmacy To Dose - Vancomycin) 1 dose .XX ASDIRECTED PRN PRN Reason: RX TO DOSE VANCO Discontinued Medications Acetaminophen (Tylenol) 975 mg PO NOW ONE Stop: 03/19/19 22:18 Last Admin: 03/19/19 22:21 Dose: 975 mg Calcium Gluconate (Calcium Gluconate) 2 gm IV ONETIME ONE Stop: 03/20/19 13:02 Last Admin: 03/20/19 13:48 Dose: 2 gm Calcium Gluconate (Calcium Gluconate) 1 gm IV ONETIME ONE Stop: 03/20/19 14:01 Last Admin: 03/20/19 14:09 Dose: Not Given Chlordiazepoxide HCl (Librium) 25 mg PO Q8H PRN PRN Reason: Withdrawal Symptoms Last Admin: 03/21/19 10:26 Dose: 25 mg Diatrizoate Meglum/Diatrizoate Sod (Gastrografin 37%) 60 ml PO ONETIME ONE Stop: 03/19/19 20:03 Last Admin: 03/20/19 03:41 Dose: Not Given Folic Acid (Folic Acid) 1 mg PO DAILY JUANA Stop: 03/22/19 09:01 Last Admin: 03/22/19 08:07 Dose: 1 mg Gentamicin Sulfate (Pharmacy To Dose - Gentamicin) 0 dose .XX DAILY PRN PRN Reason: RX TO DOSE GENT Hydrocortisone Sodium Succinate (Solu-Cortef) 100 mg IVPUSH Q6H [facility] Last Admin: 03/22/19 09:16 Dose: Not Given Hydromorphone HCl (Dilaudid) 0.5 mg IVPUSH ONETIME ONE Stop: 03/19/19 23:44 Last Admin: 03/19/19 23:51 Dose: 0.5 mg Hydromorphone HCl (Dilaudid) 1 mg IVPUSH ONETIME ONE Stop: 03/20/19 00:33 Last Admin: 03/20/19 09:12 Dose: 1 mg Lactated Ringer's (Ringers, Lactated) 2,177 mls @ 1,000 mls/hr IV .BOLUS ONE Stop: 03/19/19 22:07 Last Admin: 03/19/19 20:30 Dose: 1,000 mls/hr Vancomycin HCl 1.75 gm/ Sodium (Chloride) 500 mls @ 250 mls/hr IV ONETIME ONE Stop: 03/19/19 19:59 Last Admin: 03/19/19 20:58 Dose: 250 mls/hr Lactated Ringer's (Ringers, Lactated) 1,000 mls @ 1,000 mls/hr IV .BOLUS ONE Stop: 03/19/19 22:13 Last Admin: 03/19/19 21:30 Dose: 1,000 mls/hr Potassium Chloride 10 meq/ (Premix) 100 mls @ 100 mls/hr IV ONETIME ONE Stop: 03/19/19 22:20 Last Admin: 03/19/19 22:08 Dose: 100 mls/hr Lactated Ringer's (Ringers, Lactated) 1,000 mls @ 150 mls/hr IV ASDIRECTED [facility] Last Admin: 03/19/19 22:56 Dose: 150 mls/hr Sodium Chloride (Normal Saline) 1,000 mls @ 100 mls/hr IV ASDIRECTED [facility] Stop: 03/21/19 00:30 Last Infusion: 03/20/19 17:56 Dose: 150 mls/hr Vancomycin HCl 1.75 gm/ Sodium (Chloride) 500 mls @ 250 mls/hr IV Q24H [facility] Lactated Ringer's (Ringers, Lactated) 1,000 mls @ 999 mls/hr IV .BOLUS ONE Stop: 03/20/19 09:26 Last Admin: 03/20/19 09:15 Dose: 999 mls/hr Piperacillin Sod/Tazobactam (Sod 4.5 gm/ Sodium Chloride) 100 mls @ 200 mls/hr IV ONETIME ONE Stop: 03/20/19 09:29 Last Admin: 03/20/19 09:34 Dose: 200 mls/hr Piperacillin Sod/Tazobactam (Sod 4.5 gm/ Sodium Chloride) 100 mls @ 25 mls/hr IV Q8H [facility] Lactated Ringer's (Ringers, Lactated) 1,000 mls @ 999 mls/hr IV .BOLUS ONE Stop: 03/20/19 10:02 Last Admin: 03/20/19 09:19 Dose: 999 mls/hr Vancomycin HCl 1.75 gm/ Sodium (Chloride) 500 mls @ 250 mls/hr IV Q24H [facility] Last Admin: 03/20/19 18:58 Dose: Not Given Gentamicin Sulfate 70 mg/ (Sodium Chloride) 101.75 mls @ 101.75 mls/hr IV Q12H [facility] Last Admin: 03/20/19 09:56 Dose: 101.75 mls/hr Pantoprazole Sodium 80 mg/ (Sodium Chloride) 100 mls @ 10 mls/hr IV Q10H [facility] Last Admin: 03/21/19 11:43 Dose: Not Given Vancomycin HCl 1 gm/ Sodium (Chloride) 250 mls @ 250 mls/hr IV Q18H [facility] Last Admin: 03/21/19 09:49 Dose: Not Given Meropenem/Sodium Chloride 500 (mg/ Premix) 50 mls @ 100 mls/hr IV Q8H [facility] Last Admin: 03/21/19 01:47 Dose: 100 mls/hr Iopamidol (Isovue-300 (61%)) 100 ml IVPUSH ONETIME ONE Stop: 03/19/19 20:03 Last Admin: 03/20/19 03:41 Dose: Not Given Lorazepam (Ativan) 1 mg IVPUSH ONETIME ONE Stop: 03/20/19 00:39 Last Admin: 03/20/19 02:27 Dose: 1 mg Ondansetron HCl (Zofran) 4 mg IVPUSH ONETIME ONE Stop: 03/19/19 20:01 Last Admin: 03/19/19 20:30 Dose: 4 mg Oxycodone HCl (Oxycontin) 10 mg PO Q12HR [facility] Last Admin: 03/21/19 08:03 Dose: 10 mg Oxycodone HCl (Oxycontin) 10 mg PO ONETIME ONE Stop: 03/21/19 08:45 Last Admin: 03/21/19 09:28 Dose: 10 mg Pantoprazole Sodium (Protonix) 40 mg PO Q12H [facility] Last Admin: 03/20/19 10:31 Dose: 40 mg - My Orders Last 24 Hours: My Active Orders 03/22/19 11:00 Pantoprazole [ProTONIX] 40 mg PO DAILY@0700 03/22/19 11:14 Arterial Line Discontinue [OM.PC] Routine 03/22/19 11:35 Blood Culture x2 Reflex Set [OM.PC] Stat 03/22/19 12:00 Metoclopramide [Reglan] 10 mg IVPUSH Q6H 03/22/19 12:19 CULTURE BLOOD [BC] Stat 03/22/19 12:25 CULTURE BLOOD [BC] Stat 03/22/19 13:47 Ketorolac [Toradol] 30 mg IVPUSH Q6H PRN 03/22/19 15:00 Gabapentin [Neurontin] 100 mg PO TID 03/22/19 15:30 Azithromycin [Zithromax] 500 mg Sodium Chloride 0.9% [Normal Saline] 250 ml IV Q24H 03/22/19 18:00 Enoxaparin [Lovenox] 40 mg SUBCUT Q24H 03/22/19 21:00 VANCOMYCIN TROUGH [CHEM] Timed 03/22/19 Lunch Regular Diet [DIET] 03/23/19 05:11 BASIC METABOLIC PANEL,BMP [CHEM] AM C-REACTIVE PROTEIN [CHEM] AM CBC WITH AUTO DIFF [HEME] AM COMPREHENSIVE METABOLIC PN,CMP [CHEM] AM MAGNESIUM [CHEM] AM 03/24/19 05:11 BASIC METABOLIC PANEL,BMP [CHEM] AM C-REACTIVE PROTEIN [CHEM] AM CBC WITH AUTO DIFF [HEME] AM COMPREHENSIVE METABOLIC PN,CMP [CHEM] AM MAGNESIUM [CHEM] AM 03/25/19 05:11 BASIC METABOLIC PANEL,BMP [CHEM] AM C-REACTIVE PROTEIN [CHEM] AM CBC WITH AUTO DIFF [HEME] AM COMPREHENSIVE METABOLIC PN,CMP [CHEM] AM MAGNESIUM [CHEM] AM - Plan Plan:: The patient was seen and examined at bedside in concert with the medical student. The assessment and plans discussed and agreed upon with me. Patient no longer coughs up bloody sputum. He is much better clinically this morning. He still has abdominal pain with somewhat firm abdomen. However he has flatulence and small lose bowel movement. His platelet and renal function have improved. We will start him on Lovenox 30 subQ for DVT Prophylaxis and Protonix IVP. Educated him about pain management/control and narcotic abuse. Will adjust his pain regimen: Zanaflex, Gabapentin, Toradol +/- Oral Opioids. Discourage PRN IV Dilaudid use. He has underlying untreated psych issues. Hopefully psych can see him tomorrow.
[2019-03-22] MEDS: Metoclopramide 10 MG/2 ML SDV IVPUSH SCH ×3 (12:29→23:52)
--- NOTE | 2019-03-22 12:42 | CR ---
Abdomen: Supine view of the abdomen was obtained. Comparison: Prior CT abdomen and pelvis exam of 03/19/19. Catheter is seen presumably within the bladder. Contrast is noted within colon from recent CT exam. Slightly prominent gas within the colon is seen which does not appear to be obstructive and could represent very slight ileus. Mild degenerative change is noted within the spine. No soft tissue finding is seen. Impression: 1. Slightly prominent gas within colon which does not appear to be obstructive and is most likely due to mild ileus. 2. Catheter presumably within the bladder. Please correlate. Diagnostic code #3
[2019-03-22] MEDS: Ketorolac 30 MG/ML SDV IVPUSH PRN ×2 (14:35→23:50)
[2019-03-22] MEDS: Gabapentin 100 MG Cap PO SCH ×2 (14:35→20:23)
[2019-03-22] MEDS: Azithromycin 500 MG in Sodium Chloride 0.9% 250 ML IV SCH (16:05)
[2019-03-22] MEDS ORDERED: Enoxaparin 40 MG/0.4 ML Syringe SUBCUT SCH (18:00)
[2019-03-22] MEDS: oxyCODONE 5 MG Tab PO PRN (18:18)
[2019-03-22] MEDS ORDERED: HYDROmorphone 1 MG/ML Syringe IVPUSH PRN (20:35)
[2019-03-23] MEDS: Meropenem Premix 500 MG in Premix Bag 1 BAG IV SCH ×4 (02:00→20:12)
[2019-03-23] MEDS: Pantoprazole 40 MG Tab.CR PO SCH (06:26)
[2019-03-23] MEDS: Metoclopramide 10 MG/2 ML SDV IVPUSH SCH ×3 (06:26→17:20)
[2019-03-23] MEDS: Sodium Chloride 0.9% 1,000 ML IV SCH (06:27)
[2019-03-23] MEDS ORDERED: Potassium Chloride 20 MEQ Tab.ER PO ONE (07:16)
[2019-03-23] MEDS ORDERED: Calcium Gluconate 10% 1 GM/10 ML SDV IV PRN (07:17)
--- NOTE | 2019-03-23 07:20 | PCM.PN ---
- General Info Date of Service: 03/23/19 Admission Dx/Problem (Free Text): Admission Diagnosis/Problem Admission Diagnosis/Problem Sepsis Subjective Update: No significant overnight or acute issues. He remains afebrile and his leukocytosis has resolved. His Hbg level is down to 8.1. His K is mildly low and his Ca is critically low at 5.7. Functional Status: Reports: Tolerating Diet, Ambulating, Urinating. Denies: Pain Controlled, New Symptoms Pain Score: 10 - Review of Systems General: Denies: Fever, Chills HEENT: Reports: No Symptoms Pulmonary: Denies: Shortness of Breath, Cough, Wheezing Cardiovascular: Reports: No Symptoms Gastrointestinal: Denies: Abdominal Pain, Nausea, Vomiting Genitourinary: Reports: No Symptoms Musculoskeletal: Reports: No Symptoms Skin: Reports: No Symptoms Neurological: Denies: Difficulty Walking, Weakness, Gait Disturbance Psychiatric: Denies: Depression, Mood Lability, Anxiety, Agitation, Hallucinations, Suicidal Ideation, Homicidal Ideation - Patient Data Vitals - Most Recent: Last Vital Signs Temp 36.7 C 03/23/19 04:00 Pulse 73 03/22/19 01:00 Resp 20 03/23/19 04:00 BP 142/69 H 03/23/19 04:00 Pulse Ox 90 L 03/23/19 04:00 Weight - Most Recent: 80.739 kg I&O - Last 24 Hours: Intake & Output 03/22/19 03/23/19 03/23/19 22:59 06:59 14:59 Intake Total 3347 3216 Output Total 827 675 Balance 2852 1871 Lab Results Last 24 Hours: Laboratory Results - last 24 hr 03/22/19 03/22/19 03/23/19 Range/Units 04:27 21:02 04:19 WBC 4.65 (4.23-9.07) K/mm3 RBC 2.69 L (4.63-6.08) M/mm3 Hgb 8.1 L (13.7-17.5) gm/dl Hct 25.2 L (40.1-51.0) % MCV 93.7 H (79.0-92.2) fl MCH 30.1 (25.7-32.2) pg MCHC 32.1 L (32.2-35.5) g/dl RDW Std Deviation 46.4 H (35.1-43.9) fL Plt Count 148 L (163-337) K/mm3 MPV 10.5 (9.4-12.3) fl Neut % (Auto) 78.4 H (34.0-67.9) % Lymph % (Auto) 16.1 L (21.8-53.1) % [place] % (Auto) 4.5 L (5.3-12.2) % Eos % (Auto) 0.4 L (0.8-7.0) Baso % (Auto) 0.0 L (0.1-1.2) % Neut # (Auto) 3.64 (1.78-5.38) K/mm3 Lymph # (Auto) 0.75 L (1.32-3.57) K/mm3 [place] # (Auto) 0.21 L (0.30-0.82) K/mm3 Eos # (Auto) 0.02 L (0.04-0.54) K/mm3 Baso # (Auto) 0.00 L (0.01-0.08) K/mm3 Manual Slide Review Abnormal smear Sodium (136-145) mEq/L Potassium (3.5-5.1) mEq/L Chloride (98-107) mEq/L Carbon Dioxide (21-32) mEq/L Anion Gap (5-15) BUN (7-18) mg/dL Creatinine (0.7-1.3) mg/dL Est Cr Clr Drug Dosing mL/min Estimated GFR (MDRD) (>60) mL/min BUN/Creatinine Ratio (14-18) Glucose (74-106) mg/dL Calcium (8.5-10.1) mg/dL Magnesium (1.8-2.4) mg/dl Total Bilirubin (0.2-1.0) mg/dL AST (15-37) U/L ALT (16-63) U/L Alkaline Phosphatase (46-116) U/L C-Reactive Protein (<1.0) mg/dL Total Protein (6.4-8.2) g/dl Albumin (3.4-5.0) g/dl Globulin gm/dL Albumin/Globulin Ratio (1-2) Vancomycin Trough 18.0 (10.0-20.0) 03/23/19 Range/Units 04:19 WBC (4.23-9.07) K/mm3 RBC (4.63-6.08) M/mm3 Hgb (13.7-17.5) gm/dl Hct (40.1-51.0) % MCV (79.0-92.2) fl MCH (25.7-32.2) pg MCHC (32.2-35.5) g/dl RDW Std Deviation (35.1-43.9) fL Plt Count (163-337) K/mm3 MPV (9.4-12.3) fl Neut % (Auto) (34.0-67.9) % Lymph % (Auto) (21.8-53.1) % [place] % (Auto) (5.3-12.2) % Eos % (Auto) (0.8-7.0) Baso % (Auto) (0.1-1.2) % Neut # (Auto) (1.78-5.38) K/mm3 Lymph # (Auto) (1.32-3.57) K/mm3 [place] # (Auto) (0.30-0.82) K/mm3 Eos # (Auto) (0.04-0.54) K/mm3 Baso # (Auto) (0.01-0.08) K/mm3 Manual Slide Review Sodium 144 (136-145) mEq/L Potassium 3.4 L (3.5-5.1) mEq/L Chloride 114 H (98-107) mEq/L Carbon Dioxide 22 (21-32) mEq/L Anion Gap 11.4 (5-15) BUN 43 H (7-18) mg/dL Creatinine 1.2 (0.7-1.3) mg/dL Est Cr Clr Drug Dosing 87.26 mL/min Estimated GFR (MDRD) > 60 (>60) mL/min BUN/Creatinine Ratio 35.8 H (14-18) Glucose 92 (74-106) mg/dL Calcium 5.6 L* (8.5-10.1) mg/dL Magnesium 2.6 H (1.8-2.4) mg/dl Total Bilirubin 0.8 (0.2-1.0) mg/dL AST 63 H (15-37) U/L ALT 43 (16-63) U/L Alkaline Phosphatase 57 (46-116) U/L C-Reactive Protein 3.8 H* (<1.0) mg/dL Total Protein 4.8 L (6.4-8.2) g/dl Albumin 1.2 L (3.4-5.0) g/dl Globulin 3.6 gm/dL Albumin/Globulin Ratio 0.3 L (1-2) Vancomycin Trough (10.0-20.0) Minor Results Last 24 Hours: Microbiology 03/19/19 21:13 Aerobic Blood Culture - Preliminary Blood - Venous - Lab Draw Beta Streptococcus Group A Anaerobic Blood Culture - Preliminary Beta Streptococcus Group A 03/19/19 20:47 Aerobic Blood Culture - Preliminary Blood - Venous Beta Streptococcus Group A Anaerobic Blood Culture - Preliminary Beta Streptococcus Group A 03/20/19 05:30 Gram Stain - Final Sputum - Expectorated Sputum Culture - Preliminary Beta Streptococcus Group A Staphylococcus Aureus Med Orders - Current: Current Medications Acetaminophen (Tylenol) 975 mg PO Q4H PRN PRN Reason: Pain/Fever Albuterol/Ipratropium (Duoneb 3.0-0.5 Mg/3 Ml) 3 ml NEB Q4H PRN PRN Reason: Shortness Of Breath/wheezing Bisacodyl (Dulcolax) 5 mg PO DAILY PRN PRN Reason: Constipation Calcium Gluconate (Calcium Gluconate) 1 gm IV Q6HR PRN PRN Reason: Hypocaelcemia Clonidine HCl (Catapres) 0.1 mg PO Q4H PRN PRN Reason: Agitation Diphenhydr/Magaldrate/Simeth/Lidoca (First-Mouthwash Blm Susp) 30 ml PO ASDIRECTED [facility] Last Admin: 03/22/19 07:58 Dose: 30 ml Docusate Sodium (Colace) 100 mg PO BID PRN PRN Reason: Constipation Enoxaparin Sodium (Lovenox) 30 mg SUBCUT Q24H [facility] Gabapentin (Neurontin) 100 mg PO TID [facility] Last Admin: 03/22/19 20:23 Dose: 100 mg Guaifenesin/Phenylephrine HCl (Robitussin Dm) 10 ml PO Q4H PRN PRN Reason: Cough Haloperidol Lactate (Haldol) 2 mg IM Q4H PRN PRN Reason: Agitation Hydromorphone HCl (Dilaudid) 0.5 mg IVPUSH Q4H PRN PRN Reason: Pain Promethazine HCl 6.25 mg/ (Sodium Chloride) 50.25 mls @ 100 mls/hr IV Q6H PRN PRN Reason: Nausea/Vomiting Norepinephrine Bitartrate 4 mg (/ Dextrose/Water) 250 mls @ 7.5 mls/hr IV TITRATE [facility]; Protocol Last Titration: 03/20/19 21:00 Dose: 0 mcg/min, 0 mls/hr Sodium Chloride (Normal Saline) 1,000 mls @ 150 mls/hr IV ASDIRECTED [facility] Last Admin: 03/23/19 06:27 Dose: 150 mls/hr Meropenem/Sodium Chloride 500 (mg/ Premix) 50 mls @ 100 mls/hr IV Q6H [facility] Last Admin: 03/23/19 02:00 Dose: 100 mls/hr Vancomycin HCl 1 gm/Vancomycin HCl 250 mg/ Sodium Chloride 250 mls @ 166.667 mls/hr IV Q12H [facility] Last Admin: 03/22/19 22:02 Dose: 166.667 mls/hr Azithromycin 500 mg/ Sodium (Chloride) 250 mls @ 250 mls/hr IV Q24H [facility] Last Admin: 03/22/19 16:05 Dose: 250 mls/hr Ketorolac Tromethamine (Toradol) 30 mg IVPUSH Q6H PRN PRN Reason: Pain Last Admin: 03/22/19 23:50 Dose: 30 mg Lorazepam (Ativan) 1 mg IV Q6H PRN PRN Reason: Anxiety Last Admin: 03/22/19 02:02 Dose: 1 mg Metoclopramide HCl (Reglan) 10 mg IVPUSH Q6H [facility] Last Admin: 03/23/19 06:26 Dose: 10 mg Miscellaneous Information (Remove Patch) 1 ea TRDERM DAILY [facility] Last Admin: 03/22/19 08:07 Dose: 1 ea Multivitamins (Thera) 1 each PO DAILY [facility] Last Admin: 03/22/19 08:07 Dose: 1 each Nicotine (Habitrol) 21 mg TRDERM DAILY [facility] Last Admin: 03/22/19 08:12 Dose: Not Given Ondansetron HCl (Zofran) 4 mg IV Q6H PRN PRN Reason: Nausea/Vomiting Oxycodone HCl (Oxycodone) 5 mg PO Q4H PRN PRN Reason: Pain (moderate 4-6) Last Admin: 03/22/19 18:18 Dose: 5 mg Oxycodone HCl (Oxycontin) 20 mg PO Q12HR [facility] Last Admin: 03/22/19 20:21 Dose: 20 mg Pantoprazole Sodium (Protonix) 40 mg PO DAILY@0700 [facility] Last Admin: 03/23/19 06:26 Dose: 40 mg Polyethylene Glycol (Miralax) 17 gm PO DAILY PRN PRN Reason: Constipation Potassium Chloride (Klor-Con 10) 60 meq PO ONETIME ONE Stop: 03/23/19 07:17 Senna/Docusate Sodium (Senna Plus) 1 tab PO BID PRN PRN Reason: Constipation Sodium Chloride (Saline Flush) 10 ml FLUSH ASDIRECTED PRN PRN Reason: Keep Vein Open Last Admin: 03/19/19 21:04 Dose: 10 ml Thiamine HCl (Vitamin B-1) 100 mg PO DAILY [facility] Last Admin: 03/22/19 08:07 Dose: 100 mg Tizanidine HCl (Zanaflex) 4 mg PO Q8H PRN PRN Reason: Spasms Last Admin: 03/22/19 11:31 Dose: 4 mg Vancomycin HCl (Pharmacy To Dose - Vancomycin) 1 dose .XX ASDIRECTED PRN PRN Reason: RX TO DOSE VANCO Discontinued Medications Acetaminophen (Tylenol) 975 mg PO NOW ONE Stop: 03/19/19 22:18 Last Admin: 03/19/19 22:21 Dose: 975 mg Calcium Gluconate (Calcium Gluconate) 2 gm IV ONETIME ONE Stop: 03/20/19 13:02 Last Admin: 03/20/19 13:48 Dose: 2 gm Calcium Gluconate (Calcium Gluconate) 1 gm IV ONETIME ONE Stop: 03/20/19 14:01 Last Admin: 03/20/19 14:09 Dose: Not Given Chlordiazepoxide HCl (Librium) 25 mg PO Q8H PRN PRN Reason: Withdrawal Symptoms Last Admin: 03/21/19 10:26 Dose: 25 mg Diatrizoate Meglum/Diatrizoate Sod (Gastrografin 37%) 60 ml PO ONETIME ONE Stop: 03/19/19 20:03 Last Admin: 03/20/19 03:41 Dose: Not Given Enoxaparin Sodium (Lovenox) 40 mg SUBCUT Q24H [facility] Last Admin: 03/22/19 18:18 Dose: 40 mg Folic Acid (Folic Acid) 1 mg PO DAILY [facility] Stop: 03/22/19 09:01 Last Admin: 03/22/19 08:07 Dose: 1 mg Gentamicin Sulfate (Pharmacy To Dose - Gentamicin) 0 dose .XX DAILY PRN PRN Reason: RX TO DOSE GENT Hydrocortisone Sodium Succinate (Solu-Cortef) 100 mg IVPUSH Q6H [facility] Last Admin: 03/22/19 09:16 Dose: Not Given Hydromorphone HCl (Dilaudid) 0.5 mg IVPUSH ONETIME ONE Stop: 03/19/19 23:44 Last Admin: 03/19/19 23:51 Dose: 0.5 mg Hydromorphone HCl (Dilaudid) 1 mg IVPUSH ONETIME ONE Stop: 03/20/19 00:33 Last Admin: 03/20/19 09:12 Dose: 1 mg Hydromorphone HCl (Dilaudid) 1 mg IVPUSH Q4H PRN PRN Reason: Pain Last Admin: 03/22/19 04:27 Dose: 1 mg Lactated Ringer's (Ringers, Lactated) 2,177 mls @ 1,000 mls/hr IV .BOLUS ONE Stop: 03/19/19 22:07 Last Admin: 03/19/19 20:30 Dose: 1,000 mls/hr Vancomycin HCl 1.75 gm/ Sodium (Chloride) 500 mls @ 250 mls/hr IV ONETIME ONE Stop: 03/19/19 19:59 Last Admin: 03/19/19 20:58 Dose: 250 mls/hr Lactated Ringer's (Ringers, Lactated) 1,000 mls @ 1,000 mls/hr IV .BOLUS ONE Stop: 03/19/19 22:13 Last Admin: 03/19/19 21:30 Dose: 1,000 mls/hr Potassium Chloride 10 meq/ (Premix) 100 mls @ 100 mls/hr IV ONETIME ONE Stop: 03/19/19 22:20 Last Admin: 03/19/19 22:08 Dose: 100 mls/hr Lactated Ringer's (Ringers, Lactated) 1,000 mls @ 150 mls/hr IV ASDIRECTED [facility] Last Admin: 03/19/19 22:56 Dose: 150 mls/hr Sodium Chloride (Normal Saline) 1,000 mls @ 100 mls/hr IV ASDIRECTED [facility] Stop: 03/21/19 00:30 Last Infusion: 03/20/19 17:56 Dose: 150 mls/hr Vancomycin HCl 1.75 gm/ Sodium (Chloride) 500 mls @ 250 mls/hr IV Q24H [facility] Lactated Ringer's (Ringers, Lactated) 1,000 mls @ 999 mls/hr IV .BOLUS ONE Stop: 03/20/19 09:26 Last Admin: 03/20/19 09:15 Dose: 999 mls/hr Piperacillin Sod/Tazobactam (Sod 4.5 gm/ Sodium Chloride) 100 mls @ 200 mls/hr IV ONETIME ONE Stop: 03/20/19 09:29 Last Admin: 03/20/19 09:34 Dose: 200 mls/hr Piperacillin Sod/Tazobactam (Sod 4.5 gm/ Sodium Chloride) 100 mls @ 25 mls/hr IV Q8H [facility] Lactated Ringer's (Ringers, Lactated) 1,000 mls @ 999 mls/hr IV .BOLUS ONE Stop: 03/20/19 10:02 Last Admin: 03/20/19 09:19 Dose: 999 mls/hr Vancomycin HCl 1.75 gm/ Sodium (Chloride) 500 mls @ 250 mls/hr IV Q24H [facility] Last Admin: 03/20/19 18:58 Dose: Not Given Gentamicin Sulfate 70 mg/ (Sodium Chloride) 101.75 mls @ 101.75 mls/hr IV Q12H [facility] Last Admin: 03/20/19 09:56 Dose: 101.75 mls/hr Pantoprazole Sodium 80 mg/ (Sodium Chloride) 100 mls @ 10 mls/hr IV Q10H [facility] Last Admin: 03/21/19 11:43 Dose: Not Given Vancomycin HCl 1 gm/ Sodium (Chloride) 250 mls @ 250 mls/hr IV Q18H [facility] Last Admin: 03/21/19 09:49 Dose: Not Given Meropenem/Sodium Chloride 500 (mg/ Premix) 50 mls @ 100 mls/hr IV Q8H [facility] Last Admin: 03/21/19 01:47 Dose: 100 mls/hr Iopamidol (Isovue-300 (61%)) 100 ml IVPUSH ONETIME ONE Stop: 03/19/19 20:03 Last Admin: 03/20/19 03:41 Dose: Not Given Lorazepam (Ativan) 1 mg IVPUSH ONETIME ONE Stop: 03/20/19 00:39 Last Admin: 03/20/19 02:27 Dose: 1 mg Ondansetron HCl (Zofran) 4 mg IVPUSH ONETIME ONE Stop: 03/19/19 20:01 Last Admin: 03/19/19 20:30 Dose: 4 mg Oxycodone HCl (Oxycontin) 10 mg PO Q12HR [facility] Last Admin: 03/21/19 08:03 Dose: 10 mg Oxycodone HCl (Oxycontin) 10 mg PO ONETIME ONE Stop: 03/21/19 08:45 Last Admin: 03/21/19 09:28 Dose: 10 mg Pantoprazole Sodium (Protonix) 40 mg PO Q12H [facility] Last Admin: 03/20/19 10:31 Dose: 40 mg - Exam General: Alert, Cooperative, No Acute Distress, Sedated HEENT: Pupils Equal, Pupils Reactive, EOMI. No: Mucous Membr. Moist/[place] Neck: Supple, Trachea Midline, No JVD, Other (IJ Catheter on right neck) Lungs: Normal Respiratory Effort, Crackles, Wheezing Cardiovascular: Regular Rate, Regular Rhythm GI/Abdominal Exam: Normal Bowel Sounds, No Organomegaly, No Abnormal Bruit, Tender (lower mid -abdomen), Other (firm). No: No Distention, Guarding, Rigid, Rebound (Male) Exam: Other (indwelling pineda catheter) Extremities: Normal Range of Motion, Non-Tender, Normal Capillary Refill, Pedal Edema (left lower foot), Other (edema on right forearm-elbow). No: Redness Peripheral Pulses: 1+: Posterior Tibial (L), Dorsalis Pedis (L), 2+: Posterior Tibial (R), Dorsalis Pedis (R) Skin: Warm, Dry, Intact, Other (Diffuse skin tattoos) Neurological: Other (deferred). No: Normal Gait Psy/Mental Status: Alert, Normal Affect, Normal Mood - Problem List Review Problem List Initiated/Reviewed/Updated: Yes - My Orders Last 24 Hours: My Active Orders 03/22/19 11:00 Pantoprazole [ProTONIX] 40 mg PO DAILY@0700 03/22/19 11:14 Arterial Line Discontinue [OM.PC] Routine 03/22/19 11:35 Blood Culture x2 Reflex Set [OM.PC] Stat 03/22/19 12:00 Metoclopramide [Reglan] 10 mg IVPUSH Q6H 03/22/19 12:19 CULTURE BLOOD [BC] Stat 03/22/19 12:25 CULTURE BLOOD [BC] Stat 03/22/19 13:47 Ketorolac [Toradol] 30 mg IVPUSH Q6H PRN 03/22/19 15:00 Gabapentin [Neurontin] 100 mg PO TID 03/22/19 15:30 Azithromycin [Zithromax] 500 mg Sodium Chloride 0.9% [Normal Saline] 250 ml IV Q24H 03/22/19 20:35 HYDROmorphone [Dilaudid] 0.5 mg IVPUSH Q4H PRN 03/22/19 Lunch Regular Diet [DIET] 03/23/19 07:16 Potassium Chloride [Klor-Con 10] 60 meq PO ONETIME ONE 03/23/19 07:17 Calcium Gluconate 1 gm IV Q6HR PRN 03/23/19 09:00 Enoxaparin [Lovenox] 30 mg SUBCUT Q24H 03/24/19 05:11 BASIC METABOLIC PANEL,BMP [CHEM] AM C-REACTIVE PROTEIN [CHEM] AM CBC WITH AUTO DIFF [HEME] AM COMPREHENSIVE METABOLIC PN,CMP [CHEM] AM MAGNESIUM [CHEM] AM 03/25/19 05:11 BASIC METABOLIC PANEL,BMP [CHEM] AM C-REACTIVE PROTEIN [CHEM] AM CBC WITH AUTO DIFF [HEME] AM COMPREHENSIVE METABOLIC PN,CMP [CHEM] AM MAGNESIUM [CHEM] AM - Plan Plan:: Assessment: Acute: Bacteremia - 2D echo showed no evidence of vegetations - Has hx/o IVDU and Severe Sepsis - Blood cultures: Group A Strep sensitive for Vancomycin; repeat cultures so far negative for 1 day - Continue IV Vancomycin CAP - CT scan report read as areas of consolidation seen posteriorly with both lungs - Sputum culture: Beta Strep Group A and Staphylococcus Aureus- both sensitive to Vancomycin - Mycoplasma Pneumonia Antigen Positive - IV Vancomycin and Azithromycin - Decongestant/Expectorant - IS as directed - Repeat CXR: Diffuse opacity in the right hemithorax as well as in the left base (V-rad report) Cellulitis, Improving - Improving with decreased erythema today - Left Foot - Denies using left foot as infection site - Admits to using IVDU - Last IVDU was 3 moths ago - WBC of 24.84 -> 9.93 -> 8.68 and CRP of 22.3 -> 17.9 -> 9.2 - IV Vancomycin for pharmacy to dose Gastroenteritis, Improving - Likely 2/2 Food Poisoning - Got sick after eating enchiladas - CT scan report read as fluid within the colon and distal small bowel- normally seen with gastroenteritis - He is passing gas and has a small lose bowel - Tolerating solid meal 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 - History of acute, severe illness - Reglan prescribed to increase GI motility - Discourage opioid use for pain control - Repeat KUB:8 Centimeter distended loop of bowel: Ileus vs Obstruction (V- rad report); improved Thrombocytopenia, Improving - Platelet of 106 -> 89 -> 126-->148 - no baseline for comparison - Likely 2/2 chronic ETOH use - Avoid Heparin for now E-lytes Abnormality - Hypokalemia, K of 3.4; Oral supplement - Hypocalcemia, Ca of 5.6 -> corrected calcium of 7.4; IV Ca Gluconate x 3 - 2/2 Inadequate intake - Replete and monitor Chronic Pain Syndrome - Complaints of pain all over - Likely has low threshold due to hx/o substance abuse - Last Illicit drug use: 1-2 months ago - Current pain regimen: Gabapentin, Zanaflex, and Toradol plus Oxycodone ER 10 mg po BID and prn low dose Dilaudid - Try to discourage use of opioids Chronic ETOH User - Unknown quantity how much he drinks a day - CIWAA protocol plus my adjunct medications - Folic Acid, Thiamine, and MVI - Consult to Joceline/Dr. Saucedo Resolved: S/p Septic Shock - 2/2 Severe Sepsis from CAP, Cellulitis, Pancreatitis and Gastroenteritis - Received initial treatment in ED - Was only on IV vancomycin - Was Significantly Hypotensive and failed volume resuscitation; BP at baseline today was improved - Continue with LR at 150 cc/hr - Pineda catheter to monitor intake/output - Sepsis treatment: BS antibiotic for pharmacy to dose and help with management - IV access line and Arterial line: Remove arterial line tomorrow and continue IV line S/p Hyponatremia - Likely 2/2 Sepsis and Poor Intake - Na of 133 -> 140 -> 134 - Expect to Improved with Hydration - Monitor S/P Acute Renal Failure, Non-Oliguric - BUN of 91 -> 62 and Cr of 2.6 -> 1.7 -> 1.5 - eGFR > 60 - Likely from ATN due to Septic Shock - All electrolytes were abnormal - Avoid nephrotoxic agents - Aggressive Iv hydration - Renal US was normal, ruling out obstruction S/P Increased AG Metabolic Acidosis - LA of 3.8 -> 1.7 and AG of 17.9 -> 13.1 -> 11.2 - 2/2 Acute Renal Failure and Septic Shock S/p Transaminitis - AST of 209 -> 94 -> 50, ALT of 110 -> 59 -> 41 - Improved - Has been drinking ETOH recently - Combined ETOH and Septic Shock - Monitor S/p Pancreatitis - Likely 2/2 ETOH - Lipase of 879-->133 - Diet as tolerated S/p Hemoptysis/Hematemesis - One time episode - Has hx/o Chronic ETOH Use - PPI drip Chronic: Active Smoker and ETOH User Plan: He continues to improve clinically and hemodynamically Routine AM Labs DVT/GI prophylaxis Aspiration Precaution due to sedation Lovenox 30 mg SubQ daily for DVT since his renal function is now back to normal Diet as tolerated Lasix 20 mg IVP x 1 for diuresis SW/Cm for d/c planning Code status: full Prognosis: good Critical Time Spent: 25 mins including face to face
[2019-03-23] MEDS ORDERED: Sodium Chloride 0.9% 1,000 ML IV SCH (08:00)
[2019-03-23] MEDS: Thiamine 100 MG Tab PO SCH (08:14)
[2019-03-23] MEDS: Multivitamins,Therapeutic Tab PO SCH (08:14)
[2019-03-23] MEDS: Gabapentin 100 MG Cap PO SCH ×3 (08:14→20:10)
[2019-03-23] MEDS: oxyCODONE ER 20 MG TAB.ER PO SCH (08:15)
[2019-03-23] MEDS: Enoxaparin 30 MG/0.3 ML Syringe SUBCUT SCH (08:15)
[2019-03-23] MEDS: Acetaminophen 325 MG Tab PO PRN (08:29)
[2019-03-23] MEDS: Calcium Gluconate 1 GM in Sodium Chloride 0.9% 100 ML IV SCH ×3 (08:34→19:35)
[2019-03-23] MEDS: Nicotine 21 MG/24 Hr Patch TRDERM SCH (09:21)
[2019-03-23] MEDS: Vancomycin 1 GM, Vancomycin 250 MG in Sodium Chloride 0.9% 250 ML IV SCH ×2 (09:40→21:57)
[2019-03-23] MEDS ORDERED: Furosemide 20 MG/2 ML VIAL IVPUSH ONE ×2 (09:46→18:03)
[2019-03-23] MEDS ORDERED: Calcium Gluconate 10% 1 GM/10 ML SDV IV SCH (12:00)
[2019-03-23] MEDS ORDERED: Calcium Gluconate 1 GM in Sodium Chloride 0.9% 100 ML IV SCH (12:00)
[2019-03-23] MEDS: Azithromycin 500 MG in Sodium Chloride 0.9% 250 ML IV SCH (14:59)
[2019-03-23] MEDS: Ketorolac 30 MG/ML SDV IVPUSH PRN (15:00)
[2019-03-23] MEDS: oxyCODONE ER 10 MG TAB.ER PO SCH (20:10)
[2019-03-23] MEDS ORDERED: Calcium Gluconate 10% 1 GM/10 ML SDV IV ONE ×2 (21:02)
[2019-03-23] MEDS ORDERED: Calcium Gluconate 1 GM in Sodium Chloride 0.9% 100 ML IV ONE ×2 (21:30→22:00)
[2019-03-24] MEDS: Metoclopramide 10 MG/2 ML SDV IVPUSH SCH ×4 (01:12→18:40)
[2019-03-24] MEDS: Meropenem Premix 500 MG in Premix Bag 1 BAG IV SCH ×4 (02:51→19:53)
[2019-03-24] MEDS: Pantoprazole 40 MG Tab.CR PO SCH (06:19)
[2019-03-24] MEDS: Furosemide 20 MG/2 ML VIAL IVPUSH SCH ×2 (06:19→14:02)
[2019-03-24] MEDS ORDERED: Potassium Chloride 10 MEQ Tab.ER ONE (06:33)
[2019-03-24] MEDS ORDERED: Potassium Chloride 10 MEQ Tab.ER PO ONE (07:00)
--- NOTE | 2019-03-24 07:07 | PCM.PN ---
- General Info Date of Service: 03/24/19 Admission Dx/Problem (Free Text): Admission Diagnosis/Problem Admission Diagnosis/Problem Sepsis Subjective Update: No significant overnight or acute issues. He is doing much better this morning. He is more alert, engaging, and able to hold a prolonged conversation. He however complaints fo right rib pain and would like his pineda catheter to come off. Functional Status: Reports: Pain Controlled, Tolerating Diet, Urinating, New Symptoms (rib pain) - Review of Systems General: Reports: Weakness. Denies: Fever, Chills HEENT: Reports: No Symptoms Pulmonary: Denies: Shortness of Breath Cardiovascular: Reports: Edema. Denies: Chest Pain, Dyspnea on Exertion, Lightheadedness Gastrointestinal: Reports: Flatus. Denies: Abdominal Pain, Nausea, Vomiting Genitourinary: Reports: No Symptoms Musculoskeletal: Reports: No Symptoms Skin: Denies: Cyanosis, Mottled, Pallor, Diaphoresis, Bruising Neurological: Reports: Weakness, Gait Disturbance. Denies: Dizziness Psychiatric: Denies: Depression, Mood Lability, Anxiety, Agitation, Cravings, Hallucinations, Suicidal Ideation - Patient Data Vitals - Most Recent: Last Vital Signs Temp 38.1 C 03/24/19 04:00 Pulse 99 03/24/19 04:00 Resp 19 03/24/19 04:00 BP 138/77 03/24/19 04:00 Pulse Ox 95 03/24/19 04:00 Weight - Most Recent: 85.1 kg I&O - Last 24 Hours: Intake & Output 03/23/19 03/24/19 03/24/19 22:59 06:59 14:59 Intake Total 3260 1300 Output Total 1825 950 Balance 1435 350 Lab Results Last 24 Hours: Laboratory Results - last 24 hr 03/23/19 03/24/19 03/24/19 Range/Units 18:25 04:30 04:30 WBC 4.90 (4.23-9.07) K/mm3 RBC 2.82 L (4.63-6.08) M/mm3 Hgb 8.5 L (13.7-17.5) gm/dl Hct 26.3 L (40.1-51.0) % MCV 93.3 H (79.0-92.2) fl MCH 30.1 (25.7-32.2) pg MCHC 32.3 (32.2-35.5) g/dl RDW Std Deviation 44.2 H (35.1-43.9) fL Plt Count 218 (163-337) K/mm3 MPV 10.3 (9.4-12.3) fl Neut % (Auto) 72.5 H (34.0-67.9) % Lymph % (Auto) 21.0 L (21.8-53.1) % Dunn % (Auto) 5.3 (5.3-12.2) % Eos % (Auto) 0.6 L (0.8-7.0) Baso % (Auto) 0.2 (0.1-1.2) % Neut # (Auto) 3.55 (1.78-5.38) K/mm3 Lymph # (Auto) 1.03 L (1.32-3.57) K/mm3 Dunn # (Auto) 0.26 L (0.30-0.82) K/mm3 Eos # (Auto) 0.03 L (0.04-0.54) K/mm3 Baso # (Auto) 0.01 (0.01-0.08) K/mm3 Sodium 139 137 (136-145) mEq/L Potassium 4.0 4.2 (3.5-5.1) mEq/L Chloride 111 H 109 H (98-107) mEq/L Carbon Dioxide 20 L 22 (21-32) mEq/L Anion Gap 12.0 10.2 (5-15) BUN 34 H 27 H (7-18) mg/dL Creatinine 1.3 1.2 (0.7-1.3) mg/dL Est Cr Clr Drug Dosing 80.55 87.26 mL/min Estimated GFR (MDRD) > 60 > 60 (>60) mL/min BUN/Creatinine Ratio 26.2 H 22.5 H (14-18) Glucose 122 H 91 (74-106) mg/dL Calcium 6.5 L 6.6 L (8.5-10.1) mg/dL Magnesium 2.2 1.9 (1.8-2.4) mg/dl Total Bilirubin 1.1 H (0.2-1.0) mg/dL AST 73 H (15-37) U/L ALT 56 (16-63) U/L Alkaline Phosphatase 57 (46-116) U/L C-Reactive Protein 6.5 H* (<1.0) mg/dL Total Protein 4.9 L (6.4-8.2) g/dl Albumin 1.3 L (3.4-5.0) g/dl Globulin 3.6 gm/dL Albumin/Globulin Ratio 0.4 L (1-2) Minor Results Last 24 Hours: Microbiology 03/22/19 12:19 Aerobic Blood Culture - Preliminary Blood - Venous - Lab Draw NO GROWTH AFTER 1 DAY Anaerobic Blood Culture - Preliminary NO GROWTH AFTER 1 DAY 03/22/19 12:25 Aerobic Blood Culture - Preliminary Blood - Venous NO GROWTH AFTER 1 DAY Anaerobic Blood Culture - Preliminary NO GROWTH AFTER 1 DAY 03/20/19 05:30 Gram Stain - Final Sputum - Expectorated Sputum Culture - Final Beta Streptococcus Group A Staphylococcus Aureus 03/19/19 21:13 Aerobic Blood Culture - Final Blood - Venous - Lab Draw Beta Streptococcus Group A Anaerobic Blood Culture - Final Beta Streptococcus Group A 03/19/19 20:47 Aerobic Blood Culture - Final Blood - Venous Beta Streptococcus Group A Anaerobic Blood Culture - Final Beta Streptococcus Group A 03/21/19 13:42 Streptococcus pneumoniae Antigen (M - Final Urine Med Orders - Current: Current Medications Acetaminophen (Tylenol) 975 mg PO Q4H PRN PRN Reason: Pain/Fever Last Admin: 03/23/19 08:29 Dose: 975 mg Albuterol/Ipratropium (Duoneb 3.0-0.5 Mg/3 Ml) 3 ml NEB Q4H PRN PRN Reason: Shortness Of Breath/wheezing Bisacodyl (Dulcolax) 5 mg PO DAILY PRN PRN Reason: Constipation Clonidine HCl (Catapres) 0.1 mg PO Q4H PRN PRN Reason: Agitation Diphenhydr/Magaldrate/Simeth/Lidoca (First-Mouthwash Blm Susp) 30 ml PO ASDIRECTED JUNAA Last Admin: 03/22/19 07:58 Dose: 30 ml Docusate Sodium (Colace) 100 mg PO BID PRN PRN Reason: Constipation Enoxaparin Sodium (Lovenox) 30 mg SUBCUT Q24H JUANA Last Admin: 03/23/19 08:15 Dose: 30 mg Furosemide (Lasix) 10 mg IVPUSH BIDDIURETIC JUANA Stop: 03/26/19 14:01 Last Admin: 03/24/19 06:19 Dose: 10 mg Gabapentin (Neurontin) 100 mg PO TID [facility] Last Admin: 03/23/19 20:10 Dose: 100 mg Guaifenesin/Phenylephrine HCl (Robitussin Dm) 10 ml PO Q4H PRN PRN Reason: Cough Haloperidol Lactate (Haldol) 2 mg IM Q4H PRN PRN Reason: Agitation Hydromorphone HCl (Dilaudid) 0.5 mg IVPUSH Q8H PRN PRN Reason: Pain Promethazine HCl 6.25 mg/ (Sodium Chloride) 50.25 mls @ 100 mls/hr IV Q6H PRN PRN Reason: Nausea/Vomiting Norepinephrine Bitartrate 4 mg (/ Dextrose/Water) 250 mls @ 7.5 mls/hr IV TITRATE [facility]; Protocol Last Titration: 03/20/19 21:00 Dose: 0 mcg/min, 0 mls/hr Meropenem/Sodium Chloride 500 (mg/ Premix) 50 mls @ 100 mls/hr IV Q6H [facility] Last Admin: 03/24/19 02:51 Dose: 100 mls/hr Vancomycin HCl 1 gm/Vancomycin HCl 250 mg/ Sodium Chloride 250 mls @ 166.667 mls/hr IV Q12H [facility] Last Admin: 03/23/19 21:57 Dose: 166.667 mls/hr Azithromycin 500 mg/ Sodium (Chloride) 250 mls @ 250 mls/hr IV Q24H [facility] Last Admin: 03/23/19 14:59 Dose: 250 mls/hr Sodium Chloride (Normal Saline) 1,000 mls @ 25 mls/hr IV ASDIRECTED [facility] Ketorolac Tromethamine (Toradol) 30 mg IVPUSH Q6H PRN PRN Reason: Pain Last Admin: 03/23/19 15:00 Dose: 30 mg Lorazepam (Ativan) 1 mg IV Q6H PRN PRN Reason: Anxiety Last Admin: 03/22/19 02:02 Dose: 1 mg Metoclopramide HCl (Reglan) 10 mg IVPUSH Q6H [facility] Last Admin: 03/24/19 06:19 Dose: 10 mg Miscellaneous Information (Remove Patch) 1 ea TRDERM DAILY [facility] Last Admin: 03/23/19 09:21 Dose: Not Given Multivitamins (Thera) 1 each PO DAILY [facility] Last Admin: 03/23/19 08:14 Dose: 1 each Nicotine (Habitrol) 21 mg TRDERM DAILY [facility] Last Admin: 03/23/19 09:21 Dose: Not Given Ondansetron HCl (Zofran) 4 mg IV Q6H PRN PRN Reason: Nausea/Vomiting Oxycodone HCl (Oxycodone) 5 mg PO Q4H PRN PRN Reason: Pain (moderate 4-6) Last Admin: 03/22/19 18:18 Dose: 5 mg Oxycodone HCl (Oxycontin) 10 mg PO Q12HR [facility] Last Admin: 03/23/19 20:10 Dose: 10 mg Pantoprazole Sodium (Protonix) 40 mg PO DAILY@0700 [facility] Last Admin: 03/24/19 06:19 Dose: 40 mg Polyethylene Glycol (Miralax) 17 gm PO DAILY PRN PRN Reason: Constipation Senna/Docusate Sodium (Senna Plus) 1 tab PO BID PRN PRN Reason: Constipation Sodium Chloride (Saline Flush) 10 ml FLUSH ASDIRECTED PRN PRN Reason: Keep Vein Open Last Admin: 03/19/19 21:04 Dose: 10 ml Thiamine HCl (Vitamin B-1) 100 mg PO DAILY [facility] Last Admin: 03/23/19 08:14 Dose: 100 mg Tizanidine HCl (Zanaflex) 4 mg PO Q8H PRN PRN Reason: Spasms Last Admin: 03/22/19 11:31 Dose: 4 mg Vancomycin HCl (Pharmacy To Dose - Vancomycin) 1 dose .XX ASDIRECTED PRN PRN Reason: RX TO DOSE VANCO Discontinued Medications Acetaminophen (Tylenol) 975 mg PO NOW ONE Stop: 03/19/19 22:18 Last Admin: 03/19/19 22:21 Dose: 975 mg Calcium Gluconate (Calcium Gluconate) 2 gm IV ONETIME ONE Stop: 03/20/19 13:02 Last Admin: 03/20/19 13:48 Dose: 2 gm Calcium Gluconate (Calcium Gluconate) 1 gm IV ONETIME ONE Stop: 03/20/19 14:01 Last Admin: 03/20/19 14:09 Dose: Not Given Calcium Gluconate (Calcium Gluconate) 1 gm IV Q6HR PRN PRN Reason: Hypocaelcemia Calcium Gluconate (Calcium Gluconate) 1 gm IV Q6HR [facility] Stop: 03/24/19 00:01 Chlordiazepoxide HCl (Librium) 25 mg PO Q8H PRN PRN Reason: Withdrawal Symptoms Last Admin: 03/21/19 10:26 Dose: 25 mg Diatrizoate Meglum/Diatrizoate Sod (Gastrografin 37%) 60 ml PO ONETIME ONE Stop: 03/19/19 20:03 Last Admin: 03/20/19 03:41 Dose: Not Given Enoxaparin Sodium (Lovenox) 40 mg SUBCUT Q24H [facility] Last Admin: 03/22/19 18:18 Dose: 40 mg Folic Acid (Folic Acid) 1 mg PO DAILY [facility] Stop: 03/22/19 09:01 Last Admin: 03/22/19 08:07 Dose: 1 mg Furosemide (Lasix) 20 mg IVPUSH NOW ONE Stop: 03/23/19 09:47 Last Admin: 03/23/19 09:54 Dose: 20 mg Furosemide (Lasix) 20 mg IVPUSH NOW ONE Stop: 03/23/19 18:04 Last Admin: 03/23/19 18:13 Dose: 20 mg Gentamicin Sulfate (Pharmacy To Dose - Gentamicin) 0 dose .XX DAILY PRN PRN Reason: RX TO DOSE GENT Hydrocortisone Sodium Succinate (Solu-Cortef) 100 mg IVPUSH Q6H [facility] Last Admin: 03/22/19 09:16 Dose: Not Given Hydromorphone HCl (Dilaudid) 0.5 mg IVPUSH ONETIME ONE Stop: 03/19/19 23:44 Last Admin: 03/19/19 23:51 Dose: 0.5 mg Hydromorphone HCl (Dilaudid) 1 mg IVPUSH ONETIME ONE Stop: 03/20/19 00:33 Last Admin: 03/20/19 09:12 Dose: 1 mg Hydromorphone HCl (Dilaudid) 1 mg IVPUSH Q4H PRN PRN Reason: Pain Last Admin: 03/22/19 04:27 Dose: 1 mg Hydromorphone HCl (Dilaudid) 0.5 mg IVPUSH Q4H PRN PRN Reason: Pain Lactated Ringer's (Ringers, Lactated) 2,177 mls @ 1,000 mls/hr IV .BOLUS ONE Stop: 03/19/19 22:07 Last Admin: 03/19/19 20:30 Dose: 1,000 mls/hr Vancomycin HCl 1.75 gm/ Sodium (Chloride) 500 mls @ 250 mls/hr IV ONETIME ONE Stop: 03/19/19 19:59 Last Admin: 03/19/19 20:58 Dose: 250 mls/hr Lactated Ringer's (Ringers, Lactated) 1,000 mls @ 1,000 mls/hr IV .BOLUS ONE Stop: 03/19/19 22:13 Last Admin: 03/19/19 21:30 Dose: 1,000 mls/hr Potassium Chloride 10 meq/ (Premix) 100 mls @ 100 mls/hr IV ONETIME ONE Stop: 03/19/19 22:20 Last Admin: 03/19/19 22:08 Dose: 100 mls/hr Lactated Ringer's (Ringers, Lactated) 1,000 mls @ 150 mls/hr IV ASDIRECTED [facility] Last Admin: 03/19/19 22:56 Dose: 150 mls/hr Sodium Chloride (Normal Saline) 1,000 mls @ 100 mls/hr IV ASDIRECTED JUANA Stop: 03/21/19 00:30 Last Infusion: 03/20/19 17:56 Dose: 150 mls/hr Vancomycin HCl 1.75 gm/ Sodium (Chloride) 500 mls @ 250 mls/hr IV Q24H [facility] Lactated Ringer's (Ringers, Lactated) 1,000 mls @ 999 mls/hr IV .BOLUS ONE Stop: 03/20/19 09:26 Last Admin: 03/20/19 09:15 Dose: 999 mls/hr Piperacillin Sod/Tazobactam (Sod 4.5 gm/ Sodium Chloride) 100 mls @ 200 mls/hr IV ONETIME ONE Stop: 03/20/19 09:29 Last Admin: 03/20/19 09:34 Dose: 200 mls/hr Piperacillin Sod/Tazobactam (Sod 4.5 gm/ Sodium Chloride) 100 mls @ 25 mls/hr IV Q8H [facility] Lactated Ringer's (Ringers, Lactated) 1,000 mls @ 999 mls/hr IV .BOLUS ONE Stop: 03/20/19 10:02 Last Admin: 03/20/19 09:19 Dose: 999 mls/hr Vancomycin HCl 1.75 gm/ Sodium (Chloride) 500 mls @ 250 mls/hr IV Q24H [facility] Last Admin: 03/20/19 18:58 Dose: Not Given Gentamicin Sulfate 70 mg/ (Sodium Chloride) 101.75 mls @ 101.75 mls/hr IV Q12H [facility] Last Admin: 03/20/19 09:56 Dose: 101.75 mls/hr Pantoprazole Sodium 80 mg/ (Sodium Chloride) 100 mls @ 10 mls/hr IV Q10H [facility] Last Admin: 03/21/19 11:43 Dose: Not Given Vancomycin HCl 1 gm/ Sodium (Chloride) 250 mls @ 250 mls/hr IV Q18H [facility] Last Admin: 03/21/19 09:49 Dose: Not Given Meropenem/Sodium Chloride 500 (mg/ Premix) 50 mls @ 100 mls/hr IV Q8H [facility] Last Admin: 03/21/19 01:47 Dose: 100 mls/hr Sodium Chloride (Normal Saline) 1,000 mls @ 150 mls/hr IV ASDIRECTED [facility] Last Infusion: 03/23/19 10:01 Dose: 25 mls/hr Calcium Gluconate 1 gm/ Sodium (Chloride) 110 mls @ 200 mls/hr IV Q6H [facility] Stop: 03/23/19 20:32 Last Admin: 03/23/19 19:35 Dose: 200 mls/hr Sodium Chloride (Normal Saline) 1,000 mls @ 50 mls/hr IV ASDIRECTED [facility] Calcium Gluconate 1 gm/ Sodium (Chloride) 110 mls @ 200 mls/hr IV ONETIME ONE Stop: 03/23/19 22:02 Last Admin: 03/23/19 22:27 Dose: 200 mls/hr Calcium Gluconate 1 gm/ Sodium (Chloride) 110 mls @ 200 mls/hr IV ONETIME ONE Stop: 03/23/19 22:32 Last Admin: 03/23/19 23:47 Dose: 200 mls/hr Iopamidol (Isovue-300 (61%)) 100 ml IVPUSH ONETIME ONE Stop: 03/19/19 20:03 Last Admin: 03/20/19 03:41 Dose: Not Given Lorazepam (Ativan) 1 mg IVPUSH ONETIME ONE Stop: 03/20/19 00:39 Last Admin: 03/20/19 02:27 Dose: 1 mg Ondansetron HCl (Zofran) 4 mg IVPUSH ONETIME ONE Stop: 03/19/19 20:01 Last Admin: 03/19/19 20:30 Dose: 4 mg Oxycodone HCl (Oxycontin) 10 mg PO Q12HR [facility] Last Admin: 03/21/19 08:03 Dose: 10 mg Oxycodone HCl (Oxycontin) 20 mg PO Q12HR [facility] Last Admin: 03/23/19 08:15 Dose: 20 mg Oxycodone HCl (Oxycontin) 10 mg PO ONETIME ONE Stop: 03/21/19 08:45 Last Admin: 03/21/19 09:28 Dose: 10 mg Pantoprazole Sodium (Protonix) 40 mg PO Q12H [facility] Last Admin: 03/20/19 10:31 Dose: 40 mg Potassium Chloride (Klor-Con M20) 60 meq PO ONETIME ONE Stop: 03/23/19 07:17 Last Admin: 03/23/19 08:14 Dose: 60 meq Potassium Chloride (Klor-Con 10) 60 meq PO ONETIME ONE Stop: 03/24/19 07:01 Last Admin: 03/24/19 06:34 Dose: 60 meq Potassium Chloride (Klor-Con 10) Confirm Administered Dose 60 meq .ROUTE .STK- MED ONE Stop: 03/24/19 06:34 Last Admin: 03/24/19 06:46 Dose: Not Given - Exam General: Alert, Oriented, Cooperative, No Acute Distress, Sedated HEENT: Pupils Equal, Pupils Reactive, EOMI, Mucous Membr. Moist/[place], Other ( pinpointed pupils) Neck: Supple, Other (IJ catheter) Lungs: Normal Respiratory Effort, Decreased Breath Sounds Cardiovascular: Regular Rate, Regular Rhythm GI/Abdominal Exam: Soft, Non-Tender, No Organomegaly, No Distention, No Abnormal Bruit, Other (Hyperactive bowel sounds) (Male) Exam: Other (indwelling pineda catheter) Back Exam: Normal Inspection, Decreased Range of Motion Extremities: Normal Range of Motion, Non-Tender, Limited Range of Motion (on upper extremities with peripheral edema), Redness (left foot dorsal aspect), Other (right foot: trace edema; left Foot: 1-2+ peripheral edema) Peripheral Pulses: 1+: Posterior Tibial (L), Dorsalis Pedis (L), 2+: Posterior Tibial (R), Dorsalis Pedis (R) Skin: Warm, Dry, Intact, Other (diffuse tattoos) Neurological: No New Focal Deficit. No: Normal Gait Psy/Mental Status: Alert, Normal Affect, Normal Mood. No: Labile Mood, Anxious , Agitated, Suicidal Ideation, Homicidal Ideation, Hallucinations, Withdrawal Symptoms - Problem List Review Problem List Initiated/Reviewed/Updated: Yes - My Orders Last 24 Hours: My Active Orders 03/23/19 07:50 Chest 1V Frontal [CR] Routine 03/23/19 07:51 KUB [Abdomen 1V Flat] [CR] Routine 03/23/19 09:00 Enoxaparin [Lovenox] 30 mg SUBCUT Q24H 03/23/19 09:48 IS (RT) [RT Incentive Spirometry] [RC] ASDIRECTED 03/23/19 10:15 Sodium Chloride 0.9% [Normal Saline] 1,000 ml IV ASDIRECTED 03/23/19 21:00 oxyCODONE ER [OxyCONTIN] 10 mg PO Q12HR 03/23/19 23:53 HYDROmorphone [Dilaudid] 0.5 mg IVPUSH Q8H PRN 03/24/19 06:00 Furosemide [Lasix] 10 mg IVPUSH BIDDIURETIC 03/24/19 09:00 VANCOMYCIN TROUGH [CHEM] Timed 03/25/19 05:11 BASIC METABOLIC PANEL,BMP [CHEM] AM C-REACTIVE PROTEIN [CHEM] AM CBC WITH AUTO DIFF [HEME] AM COMPREHENSIVE METABOLIC PN,CMP [CHEM] AM MAGNESIUM [CHEM] AM - Plan Plan:: Assessment: Acute: Bacteremia - 2D echo showed no evidence of vegetations - Has hx/o IVDU and Severe Sepsis - Blood cultures: Group A Strep sensitive for Vancomycin; repeat cultures so far negative for 2 day - Continue IV Vancomycin CAP - CT scan report read as areas of consolidation seen posteriorly with both lungs - Sputum culture: Beta Strep Group A and Staphylococcus Aureus- both sensitive to Vancomycin - Mycoplasma Pneumonia Antigen Positive - Continue IV Vancomycin and Azithromycin - Decongestant/Expectorant - IS as directed - Repeat CXR 03/24/2019: Diffuse opacity in the right hemithorax as well as in the left base (V-rad report) Cellulitis, Continue to Improve - Improving with decreased erythema today - Left Foot - Denies using left foot as infection site - Admits to using IVDU - Last IVDU was 3 moths ago - WBC of 24.84 -> 9.93 -> 8.68-->4.65-->4.90 and CRP of 22.3 -> 17.9 -> 9.2-- >3.8-->6.5 - IV Vancomycin for pharmacy to dose Gastroenteritis, Continues to Improve - Likely 2/2 Food Poisoning - Got sick after eating enchiladas - CT scan report read as fluid within the colon and distal small bowel- normally seen with gastroenteritis - He is passing gas and has a small lose bowel - Tolerating solid meal Kaiden's Syndrome - Dilated colon on abdominal x-ray - History of acute, severe illness - Reglan prescribed to increase GI motility - Discourage opioid use for pain control - Repeat KUB 03/24/2019: 8 Centimeter distended loop of bowel: Ileus vs Obstruction (V-rad report); improved E-lytes Abnormality - Hypokalemia, K of 3.4-->4.0; Oral supplement - Hypocalcemia, Ca of 5.6 -> 6.5; Oral supplement - 2/2 Inadequate intake - Replete and monitor Macrocytic and Normochromic Anemia - Hgb is 8.5 - Iron panel is low - Likely poor nutritional intake - Iron pill plus Vit C BID Malnutrition - Albumin of 1.2-1.3 - Dietary consult for malnutrition Chronic Pain Syndrome - Complaints of pain all over; pain is more controlled - Likely has low threshold due to hx/o substance abuse; rib pain- no bruises or skin breaks but tender to touch - Last Illicit drug use: 1-2 months ago - Current pain regimen: Gabapentin, Zanaflex, and Toradol plus Oxycodone ER 10 mg po BID and prn low dose Dilaudid - Try to discourage use of opioids Chronic ETOH User - Unknown quantity how much he drinks a day - CIWAA protocol plus my adjunct medications - Folic Acid, Thiamine, and MVI - Consult to Joceline/Dr. Saucedo Resolved: S/p Septic Shock - 2/2 Severe Sepsis from CAP, Cellulitis, Pancreatitis and Gastroenteritis - Received initial treatment in ED - Was only on IV vancomycin - Was Significantly Hypotensive and failed volume resuscitation; BP at baseline today was improved - Continue with LR at 150 cc/hr - Pineda catheter to monitor intake/output - Sepsis treatment: BS antibiotic for pharmacy to dose and help with management - IV access line and Arterial line: Remove arterial line tomorrow and continue IV line S/p Hyponatremia - Likely 2/2 Sepsis and Poor Intake - Na of 133 -> 140 -> 134 - Expect to Improved with Hydration - Monitor S/P Acute Renal Failure, Non-Oliguric - BUN of 91 -> 62 and Cr of 2.6 -> 1.7 -> 1.5 - eGFR > 60 - Likely from ATN due to Septic Shock - All electrolytes were abnormal - Avoid nephrotoxic agents - Aggressive Iv hydration - Renal US was normal, ruling out obstruction S/P Increased AG Metabolic Acidosis - LA of 3.8 -> 1.7 and AG of 17.9 -> 13.1 -> 11.2 - 2/2 Acute Renal Failure and Septic Shock S/p Transaminitis - AST of 209 -> 94 -> 50, ALT of 110 -> 59 -> 41 - Improved - Has been drinking ETOH recently - Combined ETOH and Septic Shock - Monitor S/p Pancreatitis - Likely 2/2 ETOH - Lipase of 879-->133 - Diet as tolerated S/p Hemoptysis/Hematemesis - One time episode - Has hx/o Chronic ETOH Use - PPI drip S/p Thrombocytopenia, Improving - Platelet of 106 -> 89 -> 126-->148-->218 - no baseline for comparison - Likely 2/2 chronic ETOH use - Avoid Heparin for now Chronic: Active Smoker and ETOH User Plan: He remains clinically stable Routine AM Labs DVT/GI prophylaxis Discontinue pineda catheter SW/Cm for d/c planning SA/Tele-psych consult for hx/o illicit drug use, ETOH abuse as well as underlying psych issues Code status: full Prognosis: good Critical Time Spent: 15 mins including face to face LOS > 96 hrs due to complexity of presenting illness and possible chemical rehab placement
[2019-03-24] MEDS: tiZANidine 4 MG Tab PO PRN ×2 (07:34→18:41)
[2019-03-24] MEDS: Ketorolac 30 MG/ML SDV IVPUSH PRN ×2 (07:34→14:40)
[2019-03-24] MEDS: Acetaminophen 325 MG Tab PO PRN (08:37)
[2019-03-24] MEDS: oxyCODONE ER 10 MG TAB.ER PO SCH ×2 (09:06→20:26)
[2019-03-24] MEDS: Enoxaparin 30 MG/0.3 ML Syringe SUBCUT SCH (09:07)
[2019-03-24] MEDS: Multivitamins,Therapeutic Tab PO SCH (09:07)
[2019-03-24] MEDS: Thiamine 100 MG Tab PO SCH (09:07)
[2019-03-24] MEDS: Gabapentin 100 MG Cap PO SCH ×3 (09:07→20:26)
[2019-03-24] MEDS: Nicotine 21 MG/24 Hr Patch TRDERM SCH (09:07)
[2019-03-24] MEDS: Sodium Chloride 0.9% 1,000 ML IV SCH (12:26)
--- NOTE | 2019-03-24 13:46 | CR ---
Abdomen: Portable supine view of the abdomen was obtained. Comparison: Prior abdominal x-ray of 03/22/19. Catheter is in place presumably within the bladder. Slightly prominent gas within cecum is seen most likely representing mild ileus. Bowel gas pattern is otherwise unremarkable. Bony structures are unremarkable. Impression: 1. Slightly dilated cecum most likely due to mild ileus. 2. Catheter presumably within the bladder. Diagnostic code #3 I agree with preliminary report from [facility], finalized on 03/23/19, 10:20 AM Central Time
[2019-03-24] MEDS: Calcium Carbonate 500 MG Tab.Chew PO SCH ×3 (14:02→20:27)
[2019-03-24] MEDS: Azithromycin 500 MG in Sodium Chloride 0.9% 250 ML IV SCH (15:39)
[2019-03-24] MEDS: Ascorbic Acid 500 MG Tab PO SCH (20:36)
[2019-03-24] MEDS ORDERED: Iron Polysaccharides Complex 150 MG Cap PO SCH (21:00)
[2019-03-25] MEDS: Metoclopramide 10 MG/2 ML SDV IVPUSH SCH ×5 (00:26→23:18)
[2019-03-25] MEDS: Meropenem Premix 500 MG in Premix Bag 1 BAG IV SCH ×4 (02:04→20:09)
[2019-03-25] MEDS: tiZANidine 4 MG Tab PO PRN (04:55)
[2019-03-25] MEDS: Ketorolac 30 MG/ML SDV IVPUSH PRN (04:56)
[2019-03-25] MEDS: Furosemide 20 MG/2 ML VIAL IVPUSH SCH ×2 (05:26→08:18)
[2019-03-25] MEDS: Ascorbic Acid 500 MG Tab PO SCH ×2 (06:16→17:27)
[2019-03-25] MEDS: Ferrous Sulfate 325 MG Tab PO SCH ×2 (06:16→17:27)
[2019-03-25] MEDS: Pantoprazole 40 MG Tab.CR PO SCH (06:16)
--- NOTE | 2019-03-25 06:46 | CR ---
Chest: Portable view of the chest was obtained. Comparison: Prior chest x-ray of 03/21/19. Haziness within the right chest is seen presumably due to overlapping density. Mild increased density is noted within the right lung base which is fairly stable from previous exam as well as increased density within the left lung base which is felt compatible with continuing areas of pneumonia. Right-sided central line is seen. Heart size and mediastinum are normal for portable technique. Impression: 1. Continued increased density within both lung bases presumably representing pneumonia. 2. Stable right-sided central line. 3. Haziness within the right chest believed to be artifact. Diagnostic code #3 I agree with preliminary report from [facility], finalized on 03/23/19, 10:21 AM Central Time
[2019-03-25] MEDS ORDERED: Magnesium Sulfate/Water 4 GM in Premix Bag 1 BAG IV ONE (07:27)
--- NOTE | 2019-03-25 07:28 | PCM.PN ---
- General Info Date of Service: 03/25/19 Admission Dx/Problem (Free Text): Admission Diagnosis/Problem Admission Diagnosis/Problem Sepsis Subjective Update: No significant overnight or acute issues. He is clinically much better Functional Status: Reports: Pain Controlled, Tolerating Diet, Ambulating, Urinating. Denies: New Symptoms - Review of Systems General: Denies: Fever, Chills HEENT: Reports: No Symptoms Pulmonary: Reports: Pleuritic Chest Pain. Denies: Shortness of Breath Cardiovascular: Reports: Edema. Denies: Chest Pain, Dyspnea on Exertion, Lightheadedness Gastrointestinal: Reports: Abdominal Pain. Denies: Nausea, Vomiting Genitourinary: Reports: No Symptoms Musculoskeletal: Reports: Back Pain Skin: Reports: No Symptoms Neurological: Reports: Weakness, Gait Disturbance. Denies: Seizure Psychiatric: Denies: Depression, Mood Lability, Anxiety, Agitation, Cravings, Hallucinations, Suicidal Ideation, Homicidal Ideation - Patient Data Vitals - Most Recent: Last Vital Signs Temp 37.5 C 03/25/19 04:00 Pulse 78 03/25/19 04:00 Resp 20 03/25/19 04:00 BP 154/85 H 03/25/19 04:00 Pulse Ox 97 03/25/19 04:00 Weight - Most Recent: 85 kg I&O - Last 24 Hours: Intake & Output 03/24/19 03/25/19 03/25/19 22:59 06:59 14:59 Intake Total 2621 990 Output Total 1000 1250 Balance 1621 -260 Lab Results Last 24 Hours: Laboratory Results - last 24 hr 03/24/19 03/24/19 03/25/19 Range/Units 04:20 09:07 04:11 WBC 4.96 (4.23-9.07) K/mm3 RBC 2.75 L (4.63-6.08) M/mm3 Hgb 8.4 L (13.7-17.5) gm/dl Hct 26.0 L (40.1-51.0) % MCV 94.5 H (79.0-92.2) fl MCH 30.5 (25.7-32.2) pg MCHC 32.3 (32.2-35.5) g/dl RDW Std Deviation 42.8 (35.1-43.9) fL Plt Count 230 (163-337) K/mm3 MPV 10.0 (9.4-12.3) fl Neut % (Auto) 71.0 H (34.0-67.9) % Lymph % (Auto) 23.2 (21.8-53.1) % [place] % (Auto) 4.6 L (5.3-12.2) % Eos % (Auto) 0.4 L (0.8-7.0) Baso % (Auto) 0.2 (0.1-1.2) % Neut # (Auto) 3.52 (1.78-5.38) K/mm3 Lymph # (Auto) 1.15 L (1.32-3.57) K/mm3 [place] # (Auto) 0.23 L (0.30-0.82) K/mm3 Eos # (Auto) 0.02 L (0.04-0.54) K/mm3 Baso # (Auto) 0.01 (0.01-0.08) K/mm3 Sodium (136-145) mEq/L Potassium (3.5-5.1) mEq/L Chloride (98-107) mEq/L Carbon Dioxide (21-32) mEq/L Anion Gap (5-15) BUN (7-18) mg/dL Creatinine (0.7-1.3) mg/dL Est Cr Clr Drug Dosing mL/min Estimated GFR (MDRD) (>60) mL/min BUN/Creatinine Ratio (14-18) Glucose (74-106) mg/dL Calcium (8.5-10.1) mg/dL Magnesium (1.8-2.4) mg/dl Iron 13 L (65-175) ug/dL TIBC 104 (100-400) ug/dL % Saturation 13 L (20-55) % Transferrin 83 L (202-364) mg/dL Total Bilirubin (0.2-1.0) mg/dL AST (15-37) U/L ALT (16-63) U/L Alkaline Phosphatase (46-116) U/L C-Reactive Protein (<1.0) mg/dL Total Protein (6.4-8.2) g/dl Albumin (3.4-5.0) g/dl Globulin gm/dL Albumin/Globulin Ratio (1-2) Vancomycin Trough 19.6 (10.0-20.0) 03/25/19 Range/Units 04:11 WBC (4.23-9.07) K/mm3 RBC (4.63-6.08) M/mm3 Hgb (13.7-17.5) gm/dl Hct (40.1-51.0) % MCV (79.0-92.2) fl MCH (25.7-32.2) pg MCHC (32.2-35.5) g/dl RDW Std Deviation (35.1-43.9) fL Plt Count (163-337) K/mm3 MPV (9.4-12.3) fl Neut % (Auto) (34.0-67.9) % Lymph % (Auto) (21.8-53.1) % [place] % (Auto) (5.3-12.2) % Eos % (Auto) (0.8-7.0) Baso % (Auto) (0.1-1.2) % Neut # (Auto) (1.78-5.38) K/mm3 Lymph # (Auto) (1.32-3.57) K/mm3 [place] # (Auto) (0.30-0.82) K/mm3 Eos # (Auto) (0.04-0.54) K/mm3 Baso # (Auto) (0.01-0.08) K/mm3 Sodium 136 (136-145) mEq/L Potassium 4.6 (3.5-5.1) mEq/L Chloride 106 (98-107) mEq/L Carbon Dioxide 23 (21-32) mEq/L Anion Gap 11.6 (5-15) BUN 23 H (7-18) mg/dL Creatinine 1.0 (0.7-1.3) mg/dL Est Cr Clr Drug Dosing 104.72 mL/min Estimated GFR (MDRD) > 60 (>60) mL/min BUN/Creatinine Ratio 23.0 H (14-18) Glucose 94 (74-106) mg/dL Calcium 6.7 L (8.5-10.1) mg/dL Magnesium 1.7 L (1.8-2.4) mg/dl Iron (65-175) ug/dL TIBC (100-400) ug/dL % Saturation (20-55) % Transferrin (202-364) mg/dL Total Bilirubin 0.9 (0.2-1.0) mg/dL AST 73 H (15-37) U/L ALT 50 (16-63) U/L Alkaline Phosphatase 56 (46-116) U/L C-Reactive Protein 10.9 H* (<1.0) mg/dL Total Protein 5.1 L (6.4-8.2) g/dl Albumin 1.3 L (3.4-5.0) g/dl Globulin 3.8 gm/dL Albumin/Globulin Ratio 0.3 L (1-2) Vancomycin Trough (10.0-20.0) Minor Results Last 24 Hours: Microbiology 03/22/19 12:19 Aerobic Blood Culture - Preliminary Blood - Venous - Lab Draw NO GROWTH AFTER 2 DAYS Anaerobic Blood Culture - Preliminary NO GROWTH AFTER 2 DAYS 03/22/19 12:25 Aerobic Blood Culture - Preliminary Blood - Venous NO GROWTH AFTER 2 DAYS Anaerobic Blood Culture - Preliminary NO GROWTH AFTER 2 DAYS Med Orders - Current: Current Medications Acetaminophen (Tylenol) 975 mg PO Q4H PRN PRN Reason: Pain/Fever Last Admin: 03/24/19 08:37 Dose: 975 mg Albuterol/Ipratropium (Duoneb 3.0-0.5 Mg/3 Ml) 3 ml NEB Q4H PRN PRN Reason: Shortness Of Breath/wheezing Ascorbic Acid (Vitamin C) 500 mg PO BIDMEALS [facility] Last Admin: 03/25/19 06:16 Dose: 500 mg Bisacodyl (Dulcolax) 5 mg PO DAILY PRN PRN Reason: Constipation Clonidine HCl (Catapres) 0.1 mg PO Q4H PRN PRN Reason: Agitation Diphenhydr/Magaldrate/Simeth/Lidoca (First-Mouthwash Blm Susp) 30 ml PO ASDIRECTED [facility] Last Admin: 03/22/19 07:58 Dose: 30 ml Docusate Sodium (Colace) 100 mg PO BID PRN PRN Reason: Constipation Enoxaparin Sodium (Lovenox) 30 mg SUBCUT Q24H [facility] Last Admin: 03/24/19 09:07 Dose: 30 mg Ferrous Sulfate (Ferrous Sulfate) 325 mg PO BIDMEALS [facility] Last Admin: 03/25/19 06:16 Dose: 325 mg Furosemide (Lasix) 20 mg IVPUSH ONETIME ONE Stop: 03/25/19 18:01 Furosemide (Lasix) 20 mg IVPUSH DAILY JUANA Stop: 03/26/19 09:01 Gabapentin (Neurontin) 100 mg PO TID [facility] Last Admin: 03/24/19 20:26 Dose: 100 mg Guaifenesin/Phenylephrine HCl (Robitussin Dm) 10 ml PO Q4H PRN PRN Reason: Cough Haloperidol Lactate (Haldol) 2 mg IM Q4H PRN PRN Reason: Agitation Hydromorphone HCl (Dilaudid) 0.5 mg IVPUSH Q8H PRN PRN Reason: Pain Promethazine HCl 6.25 mg/ (Sodium Chloride) 50.25 mls @ 100 mls/hr IV Q6H PRN PRN Reason: Nausea/Vomiting Norepinephrine Bitartrate 4 mg (/ Dextrose/Water) 250 mls @ 7.5 mls/hr IV TITRATE [facility]; Protocol Last Titration: 03/20/19 21:00 Dose: 0 mcg/min, 0 mls/hr Meropenem/Sodium Chloride 500 (mg/ Premix) 50 mls @ 100 mls/hr IV Q6H [facility] Last Admin: 03/25/19 02:04 Dose: 100 mls/hr Azithromycin 500 mg/ Sodium (Chloride) 250 mls @ 250 mls/hr IV Q24H [facility] Last Admin: 03/24/19 15:39 Dose: 250 mls/hr Sodium Chloride (Normal Saline) 1,000 mls @ 25 mls/hr IV ASDIRECTED [facility] Last Admin: 03/24/19 12:26 Dose: 25 mls/hr Vancomycin HCl 1 gm/ Sodium (Chloride) 250 mls @ 166.667 mls/hr IV Q12H [facility] Last Admin: 03/24/19 22:23 Dose: 166.667 mls/hr Magnesium Sulfate 4 gm/ Premix 50 mls @ 12.5 mls/hr IV ONETIME ONE Stop: 03/25/19 11:26 Ketorolac Tromethamine (Toradol) 30 mg IVPUSH Q6H PRN PRN Reason: Pain Last Admin: 03/25/19 04:56 Dose: 30 mg Lorazepam (Ativan) 1 mg IV Q6H PRN PRN Reason: Anxiety Last Admin: 03/22/19 02:02 Dose: 1 mg Metoclopramide HCl (Reglan) 10 mg IVPUSH Q6H [facility] Last Admin: 03/25/19 05:24 Dose: 10 mg Miscellaneous Information (Remove Patch) 1 ea TRDERM DAILY [facility] Last Admin: 03/24/19 09:07 Dose: Not Given Multivitamins (Thera) 1 each PO DAILY [facility] Last Admin: 03/24/19 09:07 Dose: 1 each Nicotine (Habitrol) 21 mg TRDERM DAILY [facility] Last Admin: 03/24/19 09:07 Dose: Not Given Ondansetron HCl (Zofran) 4 mg IV Q6H PRN PRN Reason: Nausea/Vomiting Oxycodone HCl (Oxycodone) 5 mg PO Q4H PRN PRN Reason: Pain (moderate 4-6) Last Admin: 03/22/19 18:18 Dose: 5 mg Oxycodone HCl (Oxycontin) 10 mg PO Q12HR [facility] Last Admin: 03/24/19 20:26 Dose: 10 mg Pantoprazole Sodium (Protonix) 40 mg PO DAILY@0700 [facility] Last Admin: 03/25/19 06:16 Dose: 40 mg Polyethylene Glycol (Miralax) 17 gm PO DAILY PRN PRN Reason: Constipation Senna/Docusate Sodium (Senna Plus) 1 tab PO BID PRN PRN Reason: Constipation Sodium Chloride (Saline Flush) 10 ml FLUSH ASDIRECTED PRN PRN Reason: Keep Vein Open Last Admin: 03/19/19 21:04 Dose: 10 ml Thiamine HCl (Vitamin B-1) 100 mg PO DAILY [facility] Last Admin: 03/24/19 09:07 Dose: 100 mg Tizanidine HCl (Zanaflex) 4 mg PO Q8H PRN PRN Reason: Spasms Last Admin: 03/25/19 04:55 Dose: 4 mg Vancomycin HCl (Pharmacy To Dose - Vancomycin) 1 dose .XX ASDIRECTED PRN PRN Reason: RX TO DOSE VANCO Discontinued Medications Acetaminophen (Tylenol) 975 mg PO NOW ONE Stop: 03/19/19 22:18 Last Admin: 03/19/19 22:21 Dose: 975 mg Calcium Carbonate/Glycine (Tums) 1,000 mg PO TID [facility] Stop: 03/24/19 21:01 Last Admin: 03/24/19 20:27 Dose: 1,000 mg Calcium Gluconate (Calcium Gluconate) 2 gm IV ONETIME ONE Stop: 03/20/19 13:02 Last Admin: 03/20/19 13:48 Dose: 2 gm Calcium Gluconate (Calcium Gluconate) 1 gm IV ONETIME ONE Stop: 03/20/19 14:01 Last Admin: 03/20/19 14:09 Dose: Not Given Calcium Gluconate (Calcium Gluconate) 1 gm IV Q6HR PRN PRN Reason: Hypocaelcemia Calcium Gluconate (Calcium Gluconate) 1 gm IV Q6HR [facility] Stop: 03/24/19 00:01 Chlordiazepoxide HCl (Librium) 25 mg PO Q8H PRN PRN Reason: Withdrawal Symptoms Last Admin: 03/21/19 10:26 Dose: 25 mg Diatrizoate Meglum/Diatrizoate Sod (Gastrografin 37%) 60 ml PO ONETIME ONE Stop: 03/19/19 20:03 Last Admin: 03/20/19 03:41 Dose: Not Given Enoxaparin Sodium (Lovenox) 40 mg SUBCUT Q24H [facility] Last Admin: 03/22/19 18:18 Dose: 40 mg Folic Acid (Folic Acid) 1 mg PO DAILY JUANA Stop: 03/22/19 09:01 Last Admin: 03/22/19 08:07 Dose: 1 mg Furosemide (Lasix) 20 mg IVPUSH NOW ONE Stop: 03/23/19 09:47 Last Admin: 03/23/19 09:54 Dose: 20 mg Furosemide (Lasix) 20 mg IVPUSH NOW ONE Stop: 03/23/19 18:04 Last Admin: 03/23/19 18:13 Dose: 20 mg Furosemide (Lasix) 10 mg IVPUSH BIDDIURETIC JUANA Stop: 03/26/19 14:01 Last Admin: 03/25/19 05:26 Dose: 10 mg Gentamicin Sulfate (Pharmacy To Dose - Gentamicin) 0 dose .XX DAILY PRN PRN Reason: RX TO DOSE GENT Hydrocortisone Sodium Succinate (Solu-Cortef) 100 mg IVPUSH Q6H [facility] Last Admin: 03/22/19 09:16 Dose: Not Given Hydromorphone HCl (Dilaudid) 0.5 mg IVPUSH ONETIME ONE Stop: 03/19/19 23:44 Last Admin: 03/19/19 23:51 Dose: 0.5 mg Hydromorphone HCl (Dilaudid) 1 mg IVPUSH ONETIME ONE Stop: 03/20/19 00:33 Last Admin: 03/20/19 09:12 Dose: 1 mg Hydromorphone HCl (Dilaudid) 1 mg IVPUSH Q4H PRN PRN Reason: Pain Last Admin: 03/22/19 04:27 Dose: 1 mg Hydromorphone HCl (Dilaudid) 0.5 mg IVPUSH Q4H PRN PRN Reason: Pain Lactated Ringer's (Ringers, Lactated) 2,177 mls @ 1,000 mls/hr IV .BOLUS ONE Stop: 03/19/19 22:07 Last Admin: 03/19/19 20:30 Dose: 1,000 mls/hr Vancomycin HCl 1.75 gm/ Sodium (Chloride) 500 mls @ 250 mls/hr IV ONETIME ONE Stop: 03/19/19 19:59 Last Admin: 03/19/19 20:58 Dose: 250 mls/hr Lactated Ringer's (Ringers, Lactated) 1,000 mls @ 1,000 mls/hr IV .BOLUS ONE Stop: 03/19/19 22:13 Last Admin: 03/19/19 21:30 Dose: 1,000 mls/hr Potassium Chloride 10 meq/ (Premix) 100 mls @ 100 mls/hr IV ONETIME ONE Stop: 03/19/19 22:20 Last Admin: 03/19/19 22:08 Dose: 100 mls/hr Lactated Ringer's (Ringers, Lactated) 1,000 mls @ 150 mls/hr IV ASDIRECTED [facility] Last Admin: 03/19/19 22:56 Dose: 150 mls/hr Sodium Chloride (Normal Saline) 1,000 mls @ 100 mls/hr IV ASDIRECTED JUANA Stop: 03/21/19 00:30 Last Infusion: 03/20/19 17:56 Dose: 150 mls/hr Vancomycin HCl 1.75 gm/ Sodium (Chloride) 500 mls @ 250 mls/hr IV Q24H [facility]UANA Lactated Ringer's (Ringers, Lactated) 1,000 mls @ 999 mls/hr IV .BOLUS ONE Stop: 03/20/19 09:26 Last Admin: 03/20/19 09:15 Dose: 999 mls/hr Piperacillin Sod/Tazobactam (Sod 4.5 gm/ Sodium Chloride) 100 mls @ 200 mls/hr IV ONETIME ONE Stop: 03/20/19 09:29 Last Admin: 03/20/19 09:34 Dose: 200 mls/hr Piperacillin Sod/Tazobactam (Sod 4.5 gm/ Sodium Chloride) 100 mls @ 25 mls/hr IV Q8H [facility] Lactated Ringer's (Ringers, Lactated) 1,000 mls @ 999 mls/hr IV .BOLUS ONE Stop: 03/20/19 10:02 Last Admin: 03/20/19 09:19 Dose: 999 mls/hr Vancomycin HCl 1.75 gm/ Sodium (Chloride) 500 mls @ 250 mls/hr IV Q24H [facility] Last Admin: 03/20/19 18:58 Dose: Not Given Gentamicin Sulfate 70 mg/ (Sodium Chloride) 101.75 mls @ 101.75 mls/hr IV Q12H [facility] Last Admin: 03/20/19 09:56 Dose: 101.75 mls/hr Pantoprazole Sodium 80 mg/ (Sodium Chloride) 100 mls @ 10 mls/hr IV Q10H [facility] Last Admin: 03/21/19 11:43 Dose: Not Given Vancomycin HCl 1 gm/ Sodium (Chloride) 250 mls @ 250 mls/hr IV Q18H [facility] Last Admin: 03/21/19 09:49 Dose: Not Given Meropenem/Sodium Chloride 500 (mg/ Premix) 50 mls @ 100 mls/hr IV Q8H [facility] Last Admin: 03/21/19 01:47 Dose: 100 mls/hr Sodium Chloride (Normal Saline) 1,000 mls @ 150 mls/hr IV ASDIRECTED [facility] Last Infusion: 03/23/19 10:01 Dose: 25 mls/hr Vancomycin HCl 1 gm/Vancomycin HCl 250 mg/ Sodium Chloride 250 mls @ 166.667 mls/hr IV Q12H [facility] Last Admin: 03/23/19 21:57 Dose: 166.667 mls/hr Calcium Gluconate 1 gm/ Sodium (Chloride) 110 mls @ 200 mls/hr IV Q6H [facility] Stop: 03/23/19 20:32 Last Admin: 03/23/19 19:35 Dose: 200 mls/hr Sodium Chloride (Normal Saline) 1,000 mls @ 50 mls/hr IV ASDIRECTED [facility] Calcium Gluconate 1 gm/ Sodium (Chloride) 110 mls @ 200 mls/hr IV ONETIME ONE Stop: 03/23/19 22:02 Last Admin: 03/23/19 22:27 Dose: 200 mls/hr Calcium Gluconate 1 gm/ Sodium (Chloride) 110 mls @ 200 mls/hr IV ONETIME ONE Stop: 03/23/19 22:32 Last Admin: 03/23/19 23:47 Dose: 200 mls/hr Vancomycin HCl 1 gm/ Sodium (Chloride) 250 mls @ 166.667 mls/hr IV Q12H [facility] Last Admin: 03/24/19 10:15 Dose: Not Given Iopamidol (Isovue-300 (61%)) 100 ml IVPUSH ONETIME ONE Stop: 03/19/19 20:03 Last Admin: 03/20/19 03:41 Dose: Not Given Lorazepam (Ativan) 1 mg IVPUSH ONETIME ONE Stop: 03/20/19 00:39 Last Admin: 03/20/19 02:27 Dose: 1 mg Ondansetron HCl (Zofran) 4 mg IVPUSH ONETIME ONE Stop: 03/19/19 20:01 Last Admin: 03/19/19 20:30 Dose: 4 mg Oxycodone HCl (Oxycontin) 10 mg PO Q12HR [facility] Last Admin: 03/21/19 08:03 Dose: 10 mg Oxycodone HCl (Oxycontin) 20 mg PO Q12HR [facility] Last Admin: 03/23/19 08:15 Dose: 20 mg Oxycodone HCl (Oxycontin) 10 mg PO ONETIME ONE Stop: 03/21/19 08:45 Last Admin: 03/21/19 09:28 Dose: 10 mg Pantoprazole Sodium (Protonix) 40 mg PO Q12H [facility] Last Admin: 03/20/19 10:31 Dose: 40 mg Polysaccharide Iron Complex (Ferrex 150) 150 mg PO DAILY JUANA Stop: 03/24/19 21:01 Last Admin: 03/24/19 20:35 Dose: 150 mg Potassium Chloride (Klor-Con M20) 60 meq PO ONETIME ONE Stop: 03/23/19 07:17 Last Admin: 03/23/19 08:14 Dose: 60 meq Potassium Chloride (Klor-Con 10) 60 meq PO ONETIME ONE Stop: 03/24/19 07:01 Last Admin: 03/24/19 06:34 Dose: 60 meq Potassium Chloride (Klor-Con 10) Confirm Administered Dose 60 meq .ROUTE .STK- MED ONE Stop: 03/24/19 06:34 Last Admin: 03/24/19 06:46 Dose: Not Given - Exam Quality Assessment: No: Supplemental Oxygen General: Alert, Oriented, Cooperative, No Acute Distress HEENT: Pupils Equal, Pupils Reactive, EOMI, Mucous Membr. Moist/[place] Neck: Supple Lungs: Normal Respiratory Effort, Decreased Breath Sounds, Crackles Cardiovascular: Regular Rate, Regular Rhythm GI/Abdominal Exam: Normal Bowel Sounds, Soft, No Organomegaly, No Distention, No Abnormal Bruit, No Mass, Tender (epigastric) (Male) Exam: Deferred Back Exam: Normal Inspection, Decreased Range of Motion Extremities: Normal Range of Motion, Non-Tender, No Pedal Edema, Normal Capillary Refill, Redness, Other (left foot: erythema and edema ) Peripheral Pulses: 1+: Posterior Tibial (L), Dorsalis Pedis (L), 2+: Posterior Tibial (R), Dorsalis Pedis (R) Skin: Warm, Dry, Intact Neurological: No New Focal Deficit, Normal Gait Psy/Mental Status: Alert, Normal Affect, Normal Mood - Problem List Review Problem List Initiated/Reviewed/Updated: Yes - My Orders Last 24 Hours: My Active Orders 03/24/19 10:30 Vancomycin 1 gm Sodium Chloride 0.9% [Normal Saline] 250 ml IV Q12H 03/24/19 18:58 Consult to Physician [CONS] Routine 03/24/19 18:59 Notify Provider Consults [RC] ASDIRECTED 03/24/19 21:00 Ascorbic Acid [Vitamin C] 500 mg PO BIDMEALS 03/25/19 07:00 Chest 1V Frontal [CR] Routine KUB [Abdomen 1V Flat] [CR] Routine Ferrous Sulfate 325 mg PO BIDMEALS 03/25/19 07:27 Magnesium Sulfate/Water [Magnesium Sulfate in Water Premix] 4 gm Premix Bag 1 bag IV ONETIME 03/25/19 09:00 Furosemide [Lasix] 20 mg IVPUSH DAILY 03/25/19 18:00 Furosemide [Lasix] 20 mg IVPUSH ONETIME ONE - Plan Plan:: Assessment: Acute: Bacteremia - 2D echo showed no evidence of vegetations - Has hx/o IVDU and Severe Sepsis - Blood cultures: Group A Strep sensitive for Vancomycin; repeat cultures so far negative for 3 days - Continue IV Vancomycin CAP - CT scan report read as areas of consolidation seen posteriorly with both lungs; repeat CT scan 03/25/2019: Moderate right sided plerual effusion and small left sided pleural effusion. Consolidation within both lung bases and scattered atelectasis - Sputum culture: Beta Strep Group A and Staphylococcus Aureus- both sensitive to Vancomycin - Mycoplasma Pneumonia Antigen Positive - Continue IV Vancomycin and Azithromycin - Decongestant/Expectorant - IS as directed - Repeat CXR 03/25/2019: increasing right sided pleural effusion from prior exam: reactive vs developing empyema. Increased density within the right lung and left retrocardiac region B/l Pleural Effusions with Atelectasis - R>>L - Hold anticoagulation - IS as directed and IVP Lasix - Offered therapeutic and diagnostic thoracentesis in AM Cellulitis, Continue to Improve - Improving with decreased erythema today - Left Foot - Denies using left foot as infection site - Admits to using IVDU - Last IVDU was 3 moths ago - WBC of 24.84 -> 9.93 -> 8.68-->4.65-->4.90 and CRP of 22.3 -> 17.9 -> 9.2-- >3.8-->6.5-->10.9 - IV Vancomycin for pharmacy to dose Kaiden's Syndrome, Improved - Dilated colon on abdominal x-ray - History of acute, severe illness - Reglan prescribed to increase GI motility - Discourage opioid use for pain control - Repeat KUB 03/24/2019: 8 Centimeter distended loop of bowel: Ileus vs Obstruction (V-rad report); improved E-lytes Abnormality - Hypokalemia, K of 3.4-->4.0-->4.6; Oral supplement - Hypocalcemia, Ca of 5.6 -> 6.5-->6.7; Oral supplement - Hypomagnesemia, Mg of 1.7--> IV supplement - 2/2 Inadequate intake - Replete and monitor Macrocytic and Normochromic Anemia - Hgb is 8.5-->8.4 - Iron panel is low - Likely poor nutritional intake - Continue Iron pill plus Vit C BID Malnutrition - Albumin of 1.2-1.3 - Dietary consult for malnutrition Chronic Pain Syndrome - Complaints of pain all over; pain is more controlled - Likely has low threshold due to hx/o substance abuse; rib pain- no bruises or skin breaks but tender to touch - Last Illicit drug use: 1-2 months ago - Current pain regimen: Gabapentin, Zanaflex, and Toradol plus Oxycodone ER 10 mg po BID and prn low dose Dilaudid - Try to discourage use of opioids Chronic ETOH User - Unknown quantity how much he drinks a day - CIWAA protocol plus my adjunct medications - Folic Acid, Thiamine, and MVI - Consult to Joceline/Dr. Saucedo Resolved: S/p Septic Shock - 2/2 Severe Sepsis from CAP, Cellulitis, Pancreatitis and Gastroenteritis - Received initial treatment in ED - Was only on IV vancomycin - Was Significantly Hypotensive and failed volume resuscitation; BP at baseline today was improved - Continue with LR at 150 cc/hr - [place] catheter to monitor intake/output - Sepsis treatment: BS antibiotic for pharmacy to dose and help with management - IV access line and Arterial line: Remove arterial line tomorrow and continue IV line S/p Hyponatremia - Likely 2/2 Sepsis and Poor Intake - Na of 133 -> 140 -> 134 - Expect to Improved with Hydration - Monitor S/p Acute Renal Failure, Non-Oliguric - BUN of 91 -> 62 and Cr of 2.6 -> 1.7 -> 1.5-->1.0 - eGFR > 60 - Likely from ATN due to Septic Shock - All electrolytes were abnormal - Avoid nephrotoxic agents - Aggressive Iv hydration - Renal US was normal, ruling out obstruction S/p Increased AG Metabolic Acidosis - LA of 3.8 -> 1.7 and AG of 17.9 -> 13.1 -> 11.2 - 2/2 Acute Renal Failure and Septic Shock S/p Transaminitis - AST of 209 -> 94 -> 50, ALT of 110 -> 59 -> 41 - Improved - Has been drinking ETOH recently - Combined ETOH and Septic Shock - Monitor S/p Pancreatitis - Likely 2/2 ETOH - Lipase of 879-->133 - Diet as tolerated S/p Hemoptysis/Hematemesis - One time episode - Has hx/o Chronic ETOH Use - PPI drip S/p Thrombocytopenia, Improving - Platelet of 106 -> 89 -> 126-->148-->218 - no baseline for comparison - Likely 2/2 chronic ETOH use - Avoid Heparin for now S/p Gastroenteritis, Continues to Improve - Likely 2/2 Food Poisoning - Got sick after eating enchiladas - CT scan report read as fluid within the colon and distal small bowel- normally seen with gastroenteritis - Repeat abdominal x-ray shows much improved ileus - He is passing gas and has a small lose bowel - Tolerating solid meal Chronic: Active Smoker and ETOH User Plan: He remains clinically stable. He continues to slowly improve Routine AM Labs DVT/GI prophylaxis SW/CM for d/c planning SA/Tele-psych consult for hx/o illicit drug use, ETOH abuse as well as underlying psych issues Code status: full Prognosis: good Critical Time Spent: 20mins including face to face LOS > 96 hrs due to complexity of presenting illness and possible chemical rehab placement
[2019-03-25] MEDS: Gabapentin 100 MG Cap PO SCH ×3 (08:05→20:10)
[2019-03-25] MEDS: Thiamine 100 MG Tab PO SCH (08:11)
[2019-03-25] MEDS: oxyCODONE ER 10 MG TAB.ER PO SCH ×2 (08:11→20:09)
[2019-03-25] MEDS: Multivitamins,Therapeutic Tab PO SCH (08:11)
[2019-03-25] MEDS: Enoxaparin 30 MG/0.3 ML Syringe SUBCUT SCH (08:33)
[2019-03-25] MEDS: Nicotine 21 MG/24 Hr Patch TRDERM SCH (08:35)
--- NOTE | 2019-03-25 09:11 | CR ---
Chest: Portable view of the chest was obtained. Comparison: Previous chest x-ray of 03/23/19. Moderate sized pleural effusion is seen which has increased in amount from previous exam. Increased density is also noted within the right lung as well as within the left retrocardiac region base most likely due to pneumonia. Right sided central line is seen which is unchanged in position. Bony structures are grossly intact. Impression: 1. Increasing right-sided pleural effusion from prior exam. Uncertain if this is reactive or represents developing empyema. 2. Increased density within the right lung and left retrocardiac region. Findings on the right side increased from previous exam. Findings presumably represent pneumonia. 3. Stable right sided central line. Diagnostic code #3
--- NOTE | 2019-03-25 09:20 | CR ---
Abdomen: Supine view of the abdomen was obtained. Scattered gas within colon and small bowel is noted. Findings have the appearance of a mild ileus. Right sided pleural effusion appears to be present. Bony structures appear unremarkable for the patient's age. Impression: 1. Gas within small bowel and colon having the appearance of a mild ileus. 2. Right sided pleural effusion. Diagnostic code #3
[2019-03-25] MEDS ORDERED: Sodium Chloride 0.9% 10 ML Syringe FLUSH PRN (09:49)
--- NOTE | 2019-03-25 12:04 | CT ---
CT chest Technique: Multiple axial sections were obtained from above the lung apices inferiorly through the lung bases. Intravenous contrast was not utilized. Comparison: No prior chest CT. Findings: Moderately large right-sided pleural effusion is seen. Small left-sided pleural effusion is noted. Consolidation is identified within both posterior lungs. Mild atelectasis is also noted within both lungs. No pericardial effusions are seen. Right sided central line is seen. No acute bony abnormality is seen. Respiratory motion is noted. Impression: 1. Moderate right sided pleural effusion. This has Hounsfield unit measurements of simple fluid rather than more complicated fluid of empyema. 2. Small left-sided pleural effusion. 3. Consolidation within both posterior lung bases as well as areas of scattered atelectasis. Diagnostic code #3
[2019-03-25] MEDS: Azithromycin 500 MG in Sodium Chloride 0.9% 250 ML IV SCH (15:53)
[2019-03-25] MEDS: HYDROmorphone 0.5 MG/0.5 ML Syringe IVPUSH PRN ×2 (16:02→20:56)
[2019-03-25] MEDS ORDERED: Furosemide 20 MG/2 ML VIAL IVPUSH ONE (18:00)
[2019-03-25] MEDS ORDERED: Magnesium Sulfate/Water 2 GM in Premix Bag 1 BAG IV ONE (20:00)
[2019-03-25] MEDS: LORazepam 2 MG/ML SDV IV PRN (20:10)
[2019-03-26] MEDS: Sodium Chloride 0.9% 1,000 ML IV SCH (00:26)
[2019-03-26] MEDS: Meropenem Premix 500 MG in Premix Bag 1 BAG IV SCH ×2 (01:49→07:58)
[2019-03-26] MEDS: Ferrous Sulfate 325 MG Tab PO SCH ×2 (06:00→16:04)
[2019-03-26] MEDS: Ascorbic Acid 500 MG Tab PO SCH ×2 (06:00→16:04)
[2019-03-26] MEDS: Pantoprazole 40 MG Tab.CR PO SCH (06:00)
[2019-03-26] MEDS: Metoclopramide 10 MG/2 ML SDV IVPUSH SCH ×3 (06:00→17:25)
[2019-03-26] MEDS: Multivitamins,Therapeutic Tab PO SCH (08:03)
[2019-03-26] MEDS: Gabapentin 100 MG Cap PO SCH ×2 (08:03→14:03)
[2019-03-26] MEDS: Thiamine 100 MG Tab PO SCH (08:03)
[2019-03-26] MEDS: oxyCODONE ER 10 MG TAB.ER PO SCH (08:03)
[2019-03-26] MEDS: Furosemide 20 MG/2 ML VIAL IVPUSH SCH (08:04)
[2019-03-26] MEDS: Nicotine 21 MG/24 Hr Patch TRDERM SCH (08:05)
[2019-03-26] MEDS ORDERED: Enoxaparin 40 MG/0.4 ML Syringe SUBCUT SCH ×2 (09:00→21:00)
[2019-03-26] MEDS ORDERED: HYDROmorphone 1 MG/ML Syringe IVPUSH ONE (11:32)
--- NOTE | 2019-03-26 11:35 | PCM.PRNOTE ---
- Free Text/Narrative Note: Diagnostic and Therapeutic Thoracentesis Date: 03/26/2019 Indication: Moderately Large Right Sided Pleural Effusion Surgeon: Aga Odom DO Assistants: Aidan Mendes MS3 and Stacy Hanson MS3 A time-out was completed verifying correct patient, procedure, site, positioning , and special equipment if applicable. The patients right hemithorax was prepped and draped in a sterile manner after the appropriate infiltration level was confirmed by ultrasound. 1% lidocaine was used anesthetize the surrounding skin. A finder needle was then used to locate fluid and clear yellow fluid was obtained. A 10-blade scalpel used to make the incision. The thoracentesis catheter was then threaded without difficulty. The patient had 1200 mL of hemorrhagic fluid removed. A post-procedure chest x-ray was ordered and the fluid will be sent for several studies. Estimated Blood Loss: Minimal The patient tolerated the procedure well and there were no complications.
[2019-03-26] MEDS: Ketorolac 30 MG/ML SDV IVPUSH PRN (12:34)
--- NOTE | 2019-03-26 13:10 | CR ---
Chest: Portable view of the chest was obtained. Comparison: Prior chest x-ray of 03/25/19. Decreased right sided pleural effusion is seen compatible with interval thoracentesis. Continuing basilar parenchymal densities are seen. No pneumothorax is seen. Right sided central line is noted. Heart size and mediastinum are unchanged. Bony structures are unchanged. Impression: 1. Decreased right-sided pleural effusion with no pneumothorax. 2. Increased density within both lung bases remains presumably due to continuing pneumonia. 3. Stable central line. Diagnostic code #3
[2019-03-26] MEDS ORDERED: cefTRIAXone 2 GM in Sodium Chloride 0.9% 100 ML IV SCH (14:00)
[2019-03-26] MEDS: oxyCODONE 5 MG Tab PO PRN (14:01)
[2019-03-26] MEDS: Azithromycin 250 MG Tab PO SCH ×2 (14:03→17:14)
--- NOTE | 2019-03-26 16:49 | PCM.PN ---
<MendesAidan - Last Filed: 03/26/19 17:08> - General Info Date of Service: 03/26/19 Functional Status: Reports: Ambulating, Urinating - Review of Systems General: Reports: No Symptoms HEENT: Reports: No Symptoms Pulmonary: Reports: Shortness of Breath, Pleuritic Chest Pain Cardiovascular: Reports: No Symptoms Gastrointestinal: Reports: No Symptoms Genitourinary: Reports: No Symptoms Musculoskeletal: Reports: No Symptoms Skin: Reports: No Symptoms Neurological: Reports: No Symptoms Psychiatric: Reports: No Symptoms - Patient Data Vitals - Most Recent: Last Vital Signs Temp 97.9 F 03/26/19 16:00 Pulse 102 H 03/25/19 16:00 Resp 18 03/26/19 16:00 BP 101/74 03/26/19 16:00 Pulse Ox 92 L 03/26/19 16:00 Weight - Most Recent: 84.3 kg I&O - Last 24 Hours: Intake & Output 03/26/19 03/26/19 03/26/19 06:59 14:59 22:59 Intake Total 1018 1423 Output Total 1100 2000 Balance -82 -577 Lab Results Last 24 Hours: Laboratory Results - last 24 hr 03/26/19 03/26/19 03/26/19 Range/Units 07:25 07:25 07:25 WBC 6.07 (4.23-9.07) K/mm3 RBC 2.68 L (4.63-6.08) M/mm3 Hgb 8.1 L (13.7-17.5) gm/dl Hct 25.4 L (40.1-51.0) % MCV 94.8 H (79.0-92.2) fl MCH 30.2 (25.7-32.2) pg MCHC 31.9 L (32.2-35.5) g/dl RDW Std Deviation 42.5 (35.1-43.9) fL Plt Count 290 (163-337) K/mm3 MPV 9.2 L (9.4-12.3) fl Neut % (Auto) 72.2 H (34.0-67.9) % Lymph % (Auto) 19.9 L (21.8-53.1) % [place] % (Auto) 7.1 (5.3-12.2) % Eos % (Auto) 0.5 L (0.8-7.0) Baso % (Auto) 0.0 L (0.1-1.2) % Neut # (Auto) 4.38 (1.78-5.38) K/mm3 Lymph # (Auto) 1.21 L (1.32-3.57) K/mm3 [place] # (Auto) 0.43 (0.30-0.82) K/mm3 Eos # (Auto) 0.03 L (0.04-0.54) K/mm3 Baso # (Auto) 0.00 L (0.01-0.08) K/mm3 APTT 39 H (22-31) SECONDS Sodium 134 L (136-145) mEq/L Potassium 4.7 (3.5-5.1) mEq/L Chloride 103 (98-107) mEq/L Carbon Dioxide 25 (21-32) mEq/L Anion Gap 10.7 (5-15) BUN 18 (7-18) mg/dL Creatinine 1.0 (0.7-1.3) mg/dL Est Cr Clr Drug Dosing 104.72 mL/min Estimated GFR (MDRD) > 60 (>60) mL/min BUN/Creatinine Ratio 18.0 (14-18) Glucose 97 (74-106) mg/dL Calcium 7.1 L (8.5-10.1) mg/dL Body Fluid Site Fluid Type Fluid Volume ML Fluid Color Fluid Appearance Fluid pH (4.5-10.0) Fluid WBC (0.20-0.60) k/mm*3 Fluid RBC (0.00-0.010) 10*6/uL Fluid Diff Comment Fluid Seg Neutrophils (0-25) % Fluid Lymphocytes (0-78) % Fluid Monocytes (0-71) % Fl Polymorphonucl Cell Fluid Glucose mg/dL Fluid Total Protein gm/dl Fluid Albumin Fluid LDH U/L Vancomycin Trough (10.0-20.0) 03/26/19 03/26/19 Range/Units 09:40 12:30 WBC (4.23-9.07) K/mm3 RBC (4.63-6.08) M/mm3 Hgb (13.7-17.5) gm/dl Hct (40.1-51.0) % MCV (79.0-92.2) fl MCH (25.7-32.2) pg MCHC (32.2-35.5) g/dl RDW Std Deviation (35.1-43.9) fL Plt Count (163-337) K/mm3 MPV (9.4-12.3) fl Neut % (Auto) (34.0-67.9) % Lymph % (Auto) (21.8-53.1) % [place] % (Auto) (5.3-12.2) % Eos % (Auto) (0.8-7.0) Baso % (Auto) (0.1-1.2) % Neut # (Auto) (1.78-5.38) K/mm3 Lymph # (Auto) (1.32-3.57) K/mm3 [place] # (Auto) (0.30-0.82) K/mm3 Eos # (Auto) (0.04-0.54) K/mm3 Baso # (Auto) (0.01-0.08) K/mm3 APTT (22-31) SECONDS Sodium (136-145) mEq/L Potassium (3.5-5.1) mEq/L Chloride (98-107) mEq/L Carbon Dioxide (21-32) mEq/L Anion Gap (5-15) BUN (7-18) mg/dL Creatinine (0.7-1.3) mg/dL Est Cr Clr Drug Dosing mL/min Estimated GFR (MDRD) (>60) mL/min BUN/Creatinine Ratio (14-18) Glucose (74-106) mg/dL Calcium (8.5-10.1) mg/dL Body Fluid Site Right lung Fluid Type Pleural fluid Fluid Volume 1224 ML Fluid Color Red Fluid Appearance Turbid Fluid pH 8 (4.5-10.0) Fluid WBC 4.35 H (0.20-0.60) k/mm*3 Fluid RBC 0.094 H (0.00-0.010) 10*6/uL Fluid Diff Comment TNP Fluid Seg Neutrophils 59.0 H (0-25) % Fluid Lymphocytes 30.0 (0-78) % Fluid Monocytes 11.0 (0-71) % Fl Polymorphonucl Cell Not Reportable Fluid Glucose 99 mg/dL Fluid Total Protein 3.1 gm/dl Fluid Albumin Cancelled Fluid LDH 622 U/L Vancomycin Trough 14.7 (10.0-20.0) Minor Results Last 24 Hours: Microbiology 03/26/19 12:30 Gram Stain - Final Pleural Fluid 03/26/19 12:30 ROSARIO Preparation - Final Other - Pleural Cavity, Unspecified 03/22/19 12:19 Aerobic Blood Culture - Preliminary Blood - Venous - Lab Draw NO GROWTH AFTER 4 DAYS Anaerobic Blood Culture - Preliminary NO GROWTH AFTER 4 DAYS 03/22/19 12:25 Aerobic Blood Culture - Preliminary Blood - Venous NO GROWTH AFTER 4 DAYS Anaerobic Blood Culture - Preliminary NO GROWTH AFTER 4 DAYS Med Orders - Current: Current Medications Acetaminophen (Tylenol) 975 mg PO Q4H PRN PRN Reason: Pain/Fever Last Admin: 03/24/19 08:37 Dose: 975 mg Albuterol/Ipratropium (Duoneb 3.0-0.5 Mg/3 Ml) 3 ml NEB Q4H PRN PRN Reason: Shortness Of Breath/wheezing Ascorbic Acid (Vitamin C) 500 mg PO BIDMEALS [facility] Last Admin: 03/26/19 16:04 Dose: 500 mg Azithromycin (Zithromax) 500 mg PO Q24H [facility] Last Admin: 03/26/19 14:03 Dose: 500 mg Bisacodyl (Dulcolax) 5 mg PO DAILY PRN PRN Reason: Constipation Clonidine HCl (Catapres) 0.1 mg PO Q4H PRN PRN Reason: Agitation Diphenhydr/Magaldrate/Simeth/Lidoca (First-Mouthwash Blm Susp) 30 ml PO ASDIRECTED [facility] Last Admin: 03/22/19 07:58 Dose: 30 ml Docusate Sodium (Colace) 100 mg PO BID PRN PRN Reason: Constipation Enoxaparin Sodium (Lovenox) 40 mg SUBCUT Q24H [facility] Ferrous Sulfate (Ferrous Sulfate) 325 mg PO BIDMEALS [facility] Last Admin: 03/26/19 16:04 Dose: 325 mg Gabapentin (Neurontin) 100 mg PO TID [facility] Last Admin: 03/26/19 14:03 Dose: 100 mg Guaifenesin/Phenylephrine HCl (Robitussin Dm) 10 ml PO Q4H PRN PRN Reason: Cough Haloperidol Lactate (Haldol) 2 mg IM Q4H PRN PRN Reason: Agitation Hydromorphone HCl (Dilaudid) 0.5 mg IVPUSH Q8H PRN PRN Reason: Pain Last Admin: 03/25/19 20:56 Dose: 0.5 mg Promethazine HCl 6.25 mg/ (Sodium Chloride) 50.25 mls @ 100 mls/hr IV Q6H PRN PRN Reason: Nausea/Vomiting Norepinephrine Bitartrate 4 mg (/ Dextrose/Water) 250 mls @ 7.5 mls/hr IV TITRATE [facility]; Protocol Last Titration: 03/20/19 21:00 Dose: 0 mcg/min, 0 mls/hr Sodium Chloride (Normal Saline) 1,000 mls @ 25 mls/hr IV ASDIRECTED [facility] Last Admin: 03/26/19 00:26 Dose: 25 mls/hr Ceftriaxone Sodium 2 gm/ (Sodium Chloride) 100 mls @ 200 mls/hr IV Q24H [facility] Last Admin: 03/26/19 13:52 Dose: 200 mls/hr Ketorolac Tromethamine (Toradol) 30 mg IVPUSH Q6H PRN PRN Reason: Pain Last Admin: 03/26/19 12:34 Dose: 30 mg Lorazepam (Ativan) 1 mg IV Q6H PRN PRN Reason: Anxiety Last Admin: 03/25/19 20:10 Dose: 1 mg Metoclopramide HCl (Reglan) 10 mg IVPUSH Q6H [facility] Last Admin: 03/26/19 11:32 Dose: 10 mg Miscellaneous Information (Remove Patch) 1 ea TRDERM DAILY [facility] Last Admin: 03/26/19 08:06 Dose: Not Given Multivitamins (Thera) 1 each PO DAILY [facility] Last Admin: 03/26/19 08:03 Dose: 1 each Nicotine (Habitrol) 21 mg TRDERM DAILY [facility] Last Admin: 03/26/19 08:05 Dose: Not Given Ondansetron HCl (Zofran) 4 mg IV Q6H PRN PRN Reason: Nausea/Vomiting Oxycodone HCl (Oxycodone) 5 mg PO Q4H PRN PRN Reason: Pain (moderate 4-6) Last Admin: 03/26/19 14:01 Dose: 5 mg Oxycodone HCl (Oxycontin) 10 mg PO Q12HR [facility] Last Admin: 03/26/19 08:03 Dose: 10 mg Pantoprazole Sodium (Protonix) 40 mg PO DAILY@0700 [facility] Last Admin: 03/26/19 06:00 Dose: 40 mg Polyethylene Glycol (Miralax) 17 gm PO DAILY PRN PRN Reason: Constipation Senna/Docusate Sodium (Senna Plus) 1 tab PO BID PRN PRN Reason: Constipation Sodium Chloride (Saline Flush) 10 ml FLUSH ASDIRECTED PRN PRN Reason: Keep Vein Open Thiamine HCl (Vitamin B-1) 100 mg PO DAILY [facility] Last Admin: 03/26/19 08:03 Dose: 100 mg Tizanidine HCl (Zanaflex) 4 mg PO Q8H PRN PRN Reason: Spasms Last Admin: 03/25/19 04:55 Dose: 4 mg Discontinued Medications Acetaminophen (Tylenol) 975 mg PO NOW ONE Stop: 03/19/19 22:18 Last Admin: 03/19/19 22:21 Dose: 975 mg Calcium Carbonate/Glycine (Tums) 1,000 mg PO TID [facility] Stop: 03/24/19 21:01 Last Admin: 03/24/19 20:27 Dose: 1,000 mg Calcium Gluconate (Calcium Gluconate) 2 gm IV ONETIME ONE Stop: 03/20/19 13:02 Last Admin: 03/20/19 13:48 Dose: 2 gm Calcium Gluconate (Calcium Gluconate) 1 gm IV ONETIME ONE Stop: 03/20/19 14:01 Last Admin: 03/20/19 14:09 Dose: Not Given Calcium Gluconate (Calcium Gluconate) 1 gm IV Q6HR PRN PRN Reason: Hypocaelcemia Calcium Gluconate (Calcium Gluconate) 1 gm IV Q6HR [facility] Stop: 03/24/19 00:01 Chlordiazepoxide HCl (Librium) 25 mg PO Q8H PRN PRN Reason: Withdrawal Symptoms Last Admin: 03/21/19 10:26 Dose: 25 mg Diatrizoate Meglum/Diatrizoate Sod (Gastrografin 37%) 60 ml PO ONETIME ONE Stop: 03/19/19 20:03 Last Admin: 03/20/19 03:41 Dose: Not Given Enoxaparin Sodium (Lovenox) 40 mg SUBCUT Q24H [facility] Last Admin: 03/22/19 18:18 Dose: 40 mg Enoxaparin Sodium (Lovenox) 30 mg SUBCUT Q24H [facility] Last Admin: 03/25/19 08:33 Dose: 30 mg Enoxaparin Sodium (Lovenox) 40 mg SUBCUT Q24H [facility] Folic Acid (Folic Acid) 1 mg PO DAILY [facility] Stop: 03/22/19 09:01 Last Admin: 03/22/19 08:07 Dose: 1 mg Furosemide (Lasix) 20 mg IVPUSH NOW ONE Stop: 03/23/19 09:47 Last Admin: 03/23/19 09:54 Dose: 20 mg Furosemide (Lasix) 20 mg IVPUSH NOW ONE Stop: 03/23/19 18:04 Last Admin: 03/23/19 18:13 Dose: 20 mg Furosemide (Lasix) 10 mg IVPUSH BIDDIURETIC [facility] Stop: 03/26/19 14:01 Last Admin: 03/25/19 05:26 Dose: 10 mg Furosemide (Lasix) 20 mg IVPUSH ONETIME ONE Stop: 03/25/19 18:01 Last Admin: 03/25/19 17:28 Dose: 20 mg Furosemide (Lasix) 20 mg IVPUSH DAILY [facility] Stop: 03/26/19 09:01 Last Admin: 03/26/19 08:04 Dose: 20 mg Gentamicin Sulfate (Pharmacy To Dose - Gentamicin) 0 dose .XX DAILY PRN PRN Reason: RX TO DOSE GENT Hydrocortisone Sodium Succinate (Solu-Cortef) 100 mg IVPUSH Q6H [facility] Last Admin: 03/22/19 09:16 Dose: Not Given Hydromorphone HCl (Dilaudid) 0.5 mg IVPUSH ONETIME ONE Stop: 03/19/19 23:44 Last Admin: 03/19/19 23:51 Dose: 0.5 mg Hydromorphone HCl (Dilaudid) 1 mg IVPUSH ONETIME ONE Stop: 03/20/19 00:33 Last Admin: 03/20/19 09:12 Dose: 1 mg Hydromorphone HCl (Dilaudid) 1 mg IVPUSH Q4H PRN PRN Reason: Pain Last Admin: 03/22/19 04:27 Dose: 1 mg Hydromorphone HCl (Dilaudid) 0.5 mg IVPUSH Q4H PRN PRN Reason: Pain Hydromorphone HCl (Dilaudid) 3 mg IVPUSH ONETIME ONE Stop: 03/26/19 11:33 Last Admin: 03/26/19 11:57 Dose: 3 mg Lactated Ringer's (Ringers, Lactated) 2,177 mls @ 1,000 mls/hr IV .BOLUS ONE Stop: 03/19/19 22:07 Last Admin: 03/19/19 20:30 Dose: 1,000 mls/hr Vancomycin HCl 1.75 gm/ Sodium (Chloride) 500 mls @ 250 mls/hr IV ONETIME ONE Stop: 03/19/19 19:59 Last Admin: 03/19/19 20:58 Dose: 250 mls/hr Lactated Ringer's (Ringers, Lactated) 1,000 mls @ 1,000 mls/hr IV .BOLUS ONE Stop: 03/19/19 22:13 Last Admin: 03/19/19 21:30 Dose: 1,000 mls/hr Potassium Chloride 10 meq/ (Premix) 100 mls @ 100 mls/hr IV ONETIME ONE Stop: 03/19/19 22:20 Last Admin: 03/19/19 22:08 Dose: 100 mls/hr Lactated Ringer's (Ringers, Lactated) 1,000 mls @ 150 mls/hr IV ASDIRECTED [facility] Last Admin: 03/19/19 22:56 Dose: 150 mls/hr Sodium Chloride (Normal Saline) 1,000 mls @ 100 mls/hr IV ASDIRECTED [facility] Stop: 03/21/19 00:30 Last Infusion: 03/20/19 17:56 Dose: 150 mls/hr Vancomycin HCl 1.75 gm/ Sodium (Chloride) 500 mls @ 250 mls/hr IV Q24H [facility] Lactated Ringer's (Ringers, Lactated) 1,000 mls @ 999 mls/hr IV .BOLUS ONE Stop: 03/20/19 09:26 Last Admin: 03/20/19 09:15 Dose: 999 mls/hr Piperacillin Sod/Tazobactam (Sod 4.5 gm/ Sodium Chloride) 100 mls @ 200 mls/hr IV ONETIME ONE Stop: 03/20/19 09:29 Last Admin: 03/20/19 09:34 Dose: 200 mls/hr Piperacillin Sod/Tazobactam (Sod 4.5 gm/ Sodium Chloride) 100 mls @ 25 mls/hr IV Q8H [facility] Lactated Ringer's (Ringers, Lactated) 1,000 mls @ 999 mls/hr IV .BOLUS ONE Stop: 03/20/19 10:02 Last Admin: 03/20/19 09:19 Dose: 999 mls/hr Vancomycin HCl 1.75 gm/ Sodium (Chloride) 500 mls @ 250 mls/hr IV Q24H [facility] Last Admin: 03/20/19 18:58 Dose: Not Given Gentamicin Sulfate 70 mg/ (Sodium Chloride) 101.75 mls @ 101.75 mls/hr IV Q12H [facility] Last Admin: 03/20/19 09:56 Dose: 101.75 mls/hr Pantoprazole Sodium 80 mg/ (Sodium Chloride) 100 mls @ 10 mls/hr IV Q10H [facility] Last Admin: 03/21/19 11:43 Dose: Not Given Vancomycin HCl 1 gm/ Sodium (Chloride) 250 mls @ 250 mls/hr IV Q18H [facility] Last Admin: 03/21/19 09:49 Dose: Not Given Meropenem/Sodium Chloride 500 (mg/ Premix) 50 mls @ 100 mls/hr IV Q8H [facility] Last Admin: 03/21/19 01:47 Dose: 100 mls/hr Sodium Chloride (Normal Saline) 1,000 mls @ 150 mls/hr IV ASDIRECTED [facility] Last Infusion: 03/23/19 10:01 Dose: 25 mls/hr Meropenem/Sodium Chloride 500 (mg/ Premix) 50 mls @ 100 mls/hr IV Q6H [facility] Last Admin: 03/26/19 07:58 Dose: 100 mls/hr Vancomycin HCl 1 gm/Vancomycin HCl 250 mg/ Sodium Chloride 250 mls @ 166.667 mls/hr IV Q12H [facility] Last Admin: 03/23/19 21:57 Dose: 166.667 mls/hr Azithromycin 500 mg/ Sodium (Chloride) 250 mls @ 250 mls/hr IV Q24H [facility] Last Admin: 03/25/19 15:53 Dose: 250 mls/hr Calcium Gluconate 1 gm/ Sodium (Chloride) 110 mls @ 200 mls/hr IV Q6H [facility] Stop: 03/23/19 20:32 Last Admin: 03/23/19 19:35 Dose: 200 mls/hr Sodium Chloride (Normal Saline) 1,000 mls @ 50 mls/hr IV ASDIRECTED [facility] Calcium Gluconate 1 gm/ Sodium (Chloride) 110 mls @ 200 mls/hr IV ONETIME ONE Stop: 03/23/19 22:02 Last Admin: 03/23/19 22:27 Dose: 200 mls/hr Calcium Gluconate 1 gm/ Sodium (Chloride) 110 mls @ 200 mls/hr IV ONETIME ONE Stop: 03/23/19 22:32 Last Admin: 03/23/19 23:47 Dose: 200 mls/hr Vancomycin HCl 1 gm/ Sodium (Chloride) 250 mls @ 166.667 mls/hr IV Q12H [facility] Last Admin: 03/24/19 10:15 Dose: Not Given Vancomycin HCl 1 gm/ Sodium (Chloride) 250 mls @ 166.667 mls/hr IV Q12H [facility] Last Admin: 03/26/19 11:14 Dose: 166.667 mls/hr Magnesium Sulfate 4 gm/ Premix 50 mls @ 12.5 mls/hr IV ONETIME ONE Stop: 03/25/19 11:26 Last Admin: 03/25/19 08:31 Dose: 12.5 mls/hr Magnesium Sulfate 2 gm/ Premix 50 mls @ 25 mls/hr IV ONETIME ONE Stop: 03/25/19 21:59 Last Admin: 03/25/19 20:09 Dose: 25 mls/hr Iopamidol (Isovue-300 (61%)) 100 ml IVPUSH ONETIME ONE Stop: 03/19/19 20:03 Last Admin: 03/20/19 03:41 Dose: Not Given Lorazepam (Ativan) 1 mg IVPUSH ONETIME ONE Stop: 03/20/19 00:39 Last Admin: 03/20/19 02:27 Dose: 1 mg Ondansetron HCl (Zofran) 4 mg IVPUSH ONETIME ONE Stop: 03/19/19 20:01 Last Admin: 03/19/19 20:30 Dose: 4 mg Oxycodone HCl (Oxycontin) 10 mg PO Q12HR [facility] Last Admin: 03/21/19 08:03 Dose: 10 mg Oxycodone HCl (Oxycontin) 20 mg PO Q12HR [facility] Last Admin: 03/23/19 08:15 Dose: 20 mg Oxycodone HCl (Oxycontin) 10 mg PO ONETIME ONE Stop: 03/21/19 08:45 Last Admin: 03/21/19 09:28 Dose: 10 mg Pantoprazole Sodium (Protonix) 40 mg PO Q12H [facility] Last Admin: 03/20/19 10:31 Dose: 40 mg Polysaccharide Iron Complex (Ferrex 150) 150 mg PO DAILY [facility] Stop: 03/24/19 21:01 Last Admin: 03/24/19 20:35 Dose: 150 mg Potassium Chloride (Klor-Con M20) 60 meq PO ONETIME ONE Stop: 03/23/19 07:17 Last Admin: 03/23/19 08:14 Dose: 60 meq Potassium Chloride (Klor-Con 10) 60 meq PO ONETIME ONE Stop: 03/24/19 07:01 Last Admin: 03/24/19 06:34 Dose: 60 meq Potassium Chloride (Klor-Con 10) Confirm Administered Dose 60 meq .ROUTE .STK- MED ONE Stop: 03/24/19 06:34 Last Admin: 03/24/19 06:46 Dose: Not Given Sodium Chloride (Saline Flush) 10 ml FLUSH ASDIRECTED PRN PRN Reason: Keep Vein Open Last Admin: 03/19/19 21:04 Dose: 10 ml Vancomycin HCl (Pharmacy To Dose - Vancomycin) 1 dose .XX ASDIRECTED PRN PRN Reason: RX TO DOSE VANCO - Exam General: Alert, Oriented, Mild Distress HEENT: Pupils Equal, Pupils Reactive, EOMI, Mucous Membr. Moist/[place]: Supple, Trachea Midline Lungs: Normal Respiratory Effort, Decreased Breath Sounds, Crackles Cardiovascular: Regular Rate, Regular Rhythm GI/Abdominal Exam: Normal Bowel Sounds, Soft, Non-Tender, No Organomegaly, No Distention, Tender (Male) Exam: Deferred Back Exam: Normal Inspection, Full Range of Motion Extremities: Pedal Edema, Redness Skin: Warm, Dry, Intact Neurological: No New Focal Deficit Psy/Mental Status: Alert, Normal Affect, Normal Mood - Problem List Review Problem List Initiated/Reviewed/Updated: Yes - Plan Plan:: Assessment: Acute: Bacteremia - 2D echo showed no evidence of vegetations - Has hx/o IVDU and Severe Sepsis - Blood cultures: Group A Strep sensitive for Vancomycin; repeat cultures so far negative for 3 days - Continue IV Vancomycin CAP - CT scan report read as areas of consolidation seen posteriorly with both lungs; repeat CT scan 03/25/2019: Moderate right sided plerual effusion and small left sided pleural effusion. Consolidation within both lung bases and scattered atelectasis - Sputum culture: Beta Strep Group A and Staphylococcus Aureus- both sensitive to Vancomycin - Mycoplasma Pneumonia Antigen Positive - Continue IV Vancomycin and Azithromycin - Decongestant/Expectorant - IS as directed - Repeat CXR 03/25/2019: increasing right sided pleural effusion from prior exam: reactive vs developing empyema. Increased density within the right lung and left retrocardiac region B/l Pleural Effusions with Atelectasis - R>>L - Hold anticoagulation - IS as directed and IVP Lasix - Offered therapeutic and diagnostic thoracentesis in AM -> thoracentesis performed Cellulitis, Continue to Improve - Improving with decreased erythema today - Left Foot - Denies using left foot as infection site - Admits to using IVDU - Last IVDU was 3 moths ago - WBC of 24.84 -> 9.93 -> 8.68-->4.65-->4.90 and CRP of 22.3 -> 17.9 -> 9.2-- >3.8-->6.5-->10.9 - IV Vancomycin for pharmacy to dose Kaiden's Syndrome, Improved - Dilated colon on abdominal x-ray - History of acute, severe illness - Reglan prescribed to increase GI motility - Discourage opioid use for pain control - Repeat KUB 03/24/2019: 8 Centimeter distended loop of bowel: Ileus vs Obstruction (V-rad report); improved E-lytes Abnormality - Hypokalemia, K of 3.4-->4.0-->4.6; Oral supplement - Hypocalcemia, Ca of 5.6 -> 6.5-->6.7; Oral supplement - Hypomagnesemia, Mg of 1.7--> IV supplement - 2/2 Inadequate intake - Replete and monitor Macrocytic and Normochromic Anemia - Hgb is 8.5-->8.4 - Iron panel is low - Likely poor nutritional intake - Continue Iron pill plus Vit C BID Malnutrition - Albumin of 1.2-1.3 - Dietary consult for malnutrition Chronic Pain Syndrome - Complaints of pain all over; pain is more controlled - Likely has low threshold due to hx/o substance abuse; rib pain- no bruises or skin breaks but tender to touch - Last Illicit drug use: 1-2 months ago - Current pain regimen: Gabapentin, Zanaflex, and Toradol plus Oxycodone ER 10 mg po BID and prn low dose Dilaudid - Try to discourage use of opioids Chronic ETOH User - Unknown quantity how much he drinks a day - CIWAA protocol plus my adjunct medications - Folic Acid, Thiamine, and MVI - Consult to Joceline/Dr. Saucedo Resolved: S/p Septic Shock - 2/2 Severe Sepsis from CAP, Cellulitis, Pancreatitis and Gastroenteritis - Received initial treatment in ED - Was only on IV vancomycin - Was Significantly Hypotensive and failed volume resuscitation; BP at baseline today was improved - Continue with LR at 150 cc/hr - [place] catheter to monitor intake/output - Sepsis treatment: BS antibiotic for pharmacy to dose and help with management - IV access line and Arterial line: Remove arterial line tomorrow and continue IV line S/p Hyponatremia - Likely 2/2 Sepsis and Poor Intake - Na of 133 -> 140 -> 134 - Expect to Improved with Hydration - Monitor S/p Acute Renal Failure, Non-Oliguric - BUN of 91 -> 62 and Cr of 2.6 -> 1.7 -> 1.5-->1.0 - eGFR > 60 - Likely from ATN due to Septic Shock - All electrolytes were abnormal - Avoid nephrotoxic agents - Aggressive Iv hydration - Renal US was normal, ruling out obstruction S/p Increased AG Metabolic Acidosis - LA of 3.8 -> 1.7 and AG of 17.9 -> 13.1 -> 11.2 - 2/2 Acute Renal Failure and Septic Shock S/p Transaminitis - AST of 209 -> 94 -> 50, ALT of 110 -> 59 -> 41 - Improved - Has been drinking ETOH recently - Combined ETOH and Septic Shock - Monitor S/p Pancreatitis - Likely 2/2 ETOH - Lipase of 879-->133 - Diet as tolerated S/p Hemoptysis/Hematemesis - One time episode - Has hx/o Chronic ETOH Use - PPI drip S/p Thrombocytopenia, Improving - Platelet of 106 -> 89 -> 126-->148-->218 - no baseline for comparison - Likely 2/2 chronic ETOH use - Avoid Heparin for now S/p Gastroenteritis, Continues to Improve - Likely 2/2 Food Poisoning - Got sick after eating enchiladas - CT scan report read as fluid within the colon and distal small bowel- normally seen with gastroenteritis - Repeat abdominal x-ray shows much improved ileus - He is passing gas and has a small lose bowel - Tolerating solid meal Chronic: Active Smoker and ETOH User Plan: He remains clinically stable. He continues to slowly improve Routine AM Labs Therapeutic thoracentesis to be performed today DVT/GI prophylaxis SW/CM for d/c planning SA/Tele-psych consult for hx/o illicit drug use, ETOH abuse as well as underlying psych issues Code status: full Prognosis: good Critical Time Spent: 20mins including face to face LOS > 96 hrs due to complexity of presenting illness and possible chemical rehab placement <Aga Odom T - Last Filed: 03/26/19 20:32> - General Info Subjective Update: No significant overnight or acute issues - Patient Data Vitals - Most Recent: Last Vital Signs Temp 36.6 C 03/26/19 16:00 Pulse 102 H 03/25/19 16:00 Resp 18 03/26/19 16:00 BP 101/74 03/26/19 16:00 Pulse Ox 92 L 03/26/19 16:00 I&O - Last 24 Hours: Intake & Output 03/26/19 03/26/19 03/26/19 06:59 14:59 22:59 Intake Total 1018 1423 374 Output Total 1100 3200 Balance -82 -3538 374 Lab Results Last 24 Hours: Laboratory Results - last 24 hr 03/26/19 03/26/19 03/26/19 Range/Units 07:25 07:25 07:25 WBC 6.07 (4.23-9.07) K/mm3 RBC 2.68 L (4.63-6.08) M/mm3 Hgb 8.1 L (13.7-17.5) gm/dl Hct 25.4 L (40.1-51.0) % MCV 94.8 H (79.0-92.2) fl MCH 30.2 (25.7-32.2) pg MCHC 31.9 L (32.2-35.5) g/dl RDW Std Deviation 42.5 (35.1-43.9) fL Plt Count 290 (163-337) K/mm3 MPV 9.2 L (9.4-12.3) fl Neut % (Auto) 72.2 H (34.0-67.9) % Lymph % (Auto) 19.9 L (21.8-53.1) % Ulster % (Auto) 7.1 (5.3-12.2) % Eos % (Auto) 0.5 L (0.8-7.0) Baso % (Auto) 0.0 L (0.1-1.2) % Neut # (Auto) 4.38 (1.78-5.38) K/mm3 Lymph # (Auto) 1.21 L (1.32-3.57) K/mm3 Ulster # (Auto) 0.43 (0.30-0.82) K/mm3 Eos # (Auto) 0.03 L (0.04-0.54) K/mm3 Baso # (Auto) 0.00 L (0.01-0.08) K/mm3 APTT 39 H (22-31) SECONDS Sodium 134 L (136-145) mEq/L Potassium 4.7 (3.5-5.1) mEq/L Chloride 103 (98-107) mEq/L Carbon Dioxide 25 (21-32) mEq/L Anion Gap 10.7 (5-15) BUN 18 (7-18) mg/dL Creatinine 1.0 (0.7-1.3) mg/dL Est Cr Clr Drug Dosing 104.72 mL/min Estimated GFR (MDRD) > 60 (>60) mL/min BUN/Creatinine Ratio 18.0 (14-18) Glucose 97 (74-106) mg/dL Calcium 7.1 L (8.5-10.1) mg/dL Body Fluid Site Fluid Type Fluid Volume ML Fluid Color Fluid Appearance Fluid pH (4.5-10.0) Fluid WBC (0.20-0.60) k/mm*3 Fluid RBC (0.00-0.010) 10*6/uL Fluid Diff Comment Fluid Seg Neutrophils (0-25) % Fluid Lymphocytes (0-78) % Fluid Monocytes (0-71) % Fl Polymorphonucl Cell Fluid Glucose mg/dL Fluid Total Protein gm/dl Fluid Albumin Fluid LDH U/L Vancomycin Trough (10.0-20.0) 03/26/19 03/26/19 Range/Units 09:40 12:30 WBC (4.23-9.07) K/mm3 RBC (4.63-6.08) M/mm3 Hgb (13.7-17.5) gm/dl Hct (40.1-51.0) % MCV (79.0-92.2) fl MCH (25.7-32.2) pg MCHC (32.2-35.5) g/dl RDW Std Deviation (35.1-43.9) fL Plt Count (163-337) K/mm3 MPV (9.4-12.3) fl Neut % (Auto) (34.0-67.9) % Lymph % (Auto) (21.8-53.1) % Ulster % (Auto) (5.3-12.2) % Eos % (Auto) (0.8-7.0) Baso % (Auto) (0.1-1.2) % Neut # (Auto) (1.78-5.38) K/mm3 Lymph # (Auto) (1.32-3.57) K/mm3 Ulster # (Auto) (0.30-0.82) K/mm3 Eos # (Auto) (0.04-0.54) K/mm3 Baso # (Auto) (0.01-0.08) K/mm3 APTT (22-31) SECONDS Sodium (136-145) mEq/L Potassium (3.5-5.1) mEq/L Chloride (98-107) mEq/L Carbon Dioxide (21-32) mEq/L Anion Gap (5-15) BUN (7-18) mg/dL Creatinine (0.7-1.3) mg/dL Est Cr Clr Drug Dosing mL/min Estimated GFR (MDRD) (>60) mL/min BUN/Creatinine Ratio (14-18) Glucose (74-106) mg/dL Calcium (8.5-10.1) mg/dL Body Fluid Site Right lung Fluid Type Pleural fluid Fluid Volume 1224 ML Fluid Color Red Fluid Appearance Turbid Fluid pH 8 (4.5-10.0) Fluid WBC 4.35 H (0.20-0.60) k/mm*3 Fluid RBC 0.094 H (0.00-0.010) 10*6/uL Fluid Diff Comment TNP Fluid Seg Neutrophils 59.0 H (0-25) % Fluid Lymphocytes 30.0 (0-78) % Fluid Monocytes 11.0 (0-71) % Fl Polymorphonucl Cell Not Reportable Fluid Glucose 99 mg/dL Fluid Total Protein 3.1 gm/dl Fluid Albumin Cancelled Fluid LDH 622 U/L Vancomycin Trough 14.7 (10.0-20.0) Minor Results Last 24 Hours: Microbiology 03/26/19 12:30 Gram Stain - Final Pleural Fluid 03/26/19 12:30 ROSARIO Preparation - Final Other - Pleural Cavity, Unspecified 03/22/19 12:19 Aerobic Blood Culture - Preliminary Blood - Venous - Lab Draw NO GROWTH AFTER 4 DAYS Anaerobic Blood Culture - Preliminary NO GROWTH AFTER 4 DAYS 03/22/19 12:25 Aerobic Blood Culture - Preliminary Blood - Venous NO GROWTH AFTER 4 DAYS Anaerobic Blood Culture - Preliminary NO GROWTH AFTER 4 DAYS Med Orders - Current: Current Medications Discontinued Medications Acetaminophen (Tylenol) 975 mg PO NOW ONE Stop: 03/19/19 22:18 Last Admin: 03/19/19 22:21 Dose: 975 mg Acetaminophen (Tylenol) 975 mg PO Q4H PRN PRN Reason: Pain/Fever Last Admin: 03/24/19 08:37 Dose: 975 mg Albuterol/Ipratropium (Duoneb 3.0-0.5 Mg/3 Ml) 3 ml NEB Q4H PRN PRN Reason: Shortness Of Breath/wheezing Ascorbic Acid (Vitamin C) 500 mg PO BIDMEALS [facility] Last Admin: 03/26/19 16:04 Dose: 500 mg Azithromycin (Zithromax) 500 mg PO Q24H [facility] Last Admin: 03/26/19 17:14 Dose: Not Given Bisacodyl (Dulcolax) 5 mg PO DAILY PRN PRN Reason: Constipation Calcium Carbonate/Glycine (Tums) 1,000 mg PO TID [facility] Stop: 03/24/19 21:01 Last Admin: 03/24/19 20:27 Dose: 1,000 mg Calcium Gluconate (Calcium Gluconate) 2 gm IV ONETIME ONE Stop: 03/20/19 13:02 Last Admin: 03/20/19 13:48 Dose: 2 gm Calcium Gluconate (Calcium Gluconate) 1 gm IV ONETIME ONE Stop: 03/20/19 14:01 Last Admin: 03/20/19 14:09 Dose: Not Given Calcium Gluconate (Calcium Gluconate) 1 gm IV Q6HR PRN PRN Reason: Hypocaelcemia Calcium Gluconate (Calcium Gluconate) 1 gm IV Q6HR [facility] Stop: 03/24/19 00:01 Chlordiazepoxide HCl (Librium) 25 mg PO Q8H PRN PRN Reason: Withdrawal Symptoms Last Admin: 03/21/19 10:26 Dose: 25 mg Clonidine HCl (Catapres) 0.1 mg PO Q4H PRN PRN Reason: Agitation Diatrizoate Meglum/Diatrizoate Sod (Gastrografin 37%) 60 ml PO ONETIME ONE Stop: 03/19/19 20:03 Last Admin: 03/20/19 03:41 Dose: Not Given Diphenhydr/Magaldrate/Simeth/Lidoca (First-Mouthwash Blm Susp) 30 ml PO ASDIRECTED [facility] Last Admin: 03/22/19 07:58 Dose: 30 ml Docusate Sodium (Colace) 100 mg PO BID PRN PRN Reason: Constipation Enoxaparin Sodium (Lovenox) 40 mg SUBCUT Q24H [facility] Last Admin: 03/22/19 18:18 Dose: 40 mg Enoxaparin Sodium (Lovenox) 30 mg SUBCUT Q24H [facility] Last Admin: 03/25/19 08:33 Dose: 30 mg Enoxaparin Sodium (Lovenox) 40 mg SUBCUT Q24H [facility] Enoxaparin Sodium (Lovenox) 40 mg SUBCUT Q24H [facility] Ferrous Sulfate (Ferrous Sulfate) 325 mg PO BIDMEALS [facility] Last Admin: 03/26/19 16:04 Dose: 325 mg Folic Acid (Folic Acid) 1 mg PO DAILY [facility] Stop: 03/22/19 09:01 Last Admin: 03/22/19 08:07 Dose: 1 mg Furosemide (Lasix) 20 mg IVPUSH NOW ONE Stop: 03/23/19 09:47 Last Admin: 03/23/19 09:54 Dose: 20 mg Furosemide (Lasix) 20 mg IVPUSH NOW ONE Stop: 03/23/19 18:04 Last Admin: 03/23/19 18:13 Dose: 20 mg Furosemide (Lasix) 10 mg IVPUSH BIDDIURETIC [facility] Stop: 03/26/19 14:01 Last Admin: 03/25/19 05:26 Dose: 10 mg Furosemide (Lasix) 20 mg IVPUSH ONETIME ONE Stop: 03/25/19 18:01 Last Admin: 03/25/19 17:28 Dose: 20 mg Furosemide (Lasix) 20 mg IVPUSH DAILY [facility] Stop: 03/26/19 09:01 Last Admin: 03/26/19 08:04 Dose: 20 mg Gabapentin (Neurontin) 100 mg PO TID [facility] Last Admin: 03/26/19 14:03 Dose: 100 mg Gentamicin Sulfate (Pharmacy To Dose - Gentamicin) 0 dose .XX DAILY PRN PRN Reason: RX TO DOSE GENT Guaifenesin/Phenylephrine HCl (Robitussin Dm) 10 ml PO Q4H PRN PRN Reason: Cough Haloperidol Lactate (Haldol) 2 mg IM Q4H PRN PRN Reason: Agitation Hydrocortisone Sodium Succinate (Solu-Cortef) 100 mg IVPUSH Q6H [facility] Last Admin: 03/22/19 09:16 Dose: Not Given Hydromorphone HCl (Dilaudid) 0.5 mg IVPUSH ONETIME ONE Stop: 03/19/19 23:44 Last Admin: 03/19/19 23:51 Dose: 0.5 mg Hydromorphone HCl (Dilaudid) 1 mg IVPUSH ONETIME ONE Stop: 03/20/19 00:33 Last Admin: 03/20/19 09:12 Dose: 1 mg Hydromorphone HCl (Dilaudid) 1 mg IVPUSH Q4H PRN PRN Reason: Pain Last Admin: 03/22/19 04:27 Dose: 1 mg Hydromorphone HCl (Dilaudid) 0.5 mg IVPUSH Q4H PRN PRN Reason: Pain Hydromorphone HCl (Dilaudid) 0.5 mg IVPUSH Q8H PRN PRN Reason: Pain Last Admin: 03/25/19 20:56 Dose: 0.5 mg Hydromorphone HCl (Dilaudid) 3 mg IVPUSH ONETIME ONE Stop: 03/26/19 11:33 Last Admin: 03/26/19 11:57 Dose: 3 mg Lactated Ringer's (Ringers, Lactated) 2,177 mls @ 1,000 mls/hr IV .BOLUS ONE Stop: 03/19/19 22:07 Last Admin: 03/19/19 20:30 Dose: 1,000 mls/hr Vancomycin HCl 1.75 gm/ Sodium (Chloride) 500 mls @ 250 mls/hr IV ONETIME ONE Stop: 03/19/19 19:59 Last Admin: 03/19/19 20:58 Dose: 250 mls/hr Lactated Ringer's (Ringers, Lactated) 1,000 mls @ 1,000 mls/hr IV .BOLUS ONE Stop: 03/19/19 22:13 Last Admin: 03/19/19 21:30 Dose: 1,000 mls/hr Potassium Chloride 10 meq/ (Premix) 100 mls @ 100 mls/hr IV ONETIME ONE Stop: 03/19/19 22:20 Last Admin: 03/19/19 22:08 Dose: 100 mls/hr Lactated Ringer's (Ringers, Lactated) 1,000 mls @ 150 mls/hr IV ASDIRECTED [facility] Last Admin: 03/19/19 22:56 Dose: 150 mls/hr Sodium Chloride (Normal Saline) 1,000 mls @ 100 mls/hr IV ASDIRECTED [facility] Stop: 03/21/19 00:30 Last Infusion: 03/20/19 17:56 Dose: 150 mls/hr Vancomycin HCl 1.75 gm/ Sodium (Chloride) 500 mls @ 250 mls/hr IV Q24H [facility] Promethazine HCl 6.25 mg/ (Sodium Chloride) 50.25 mls @ 100 mls/hr IV Q6H PRN PRN Reason: Nausea/Vomiting Lactated Ringer's (Ringers, Lactated) 1,000 mls @ 999 mls/hr IV .BOLUS ONE Stop: 03/20/19 09:26 Last Admin: 03/20/19 09:15 Dose: 999 mls/hr Piperacillin Sod/Tazobactam (Sod 4.5 gm/ Sodium Chloride) 100 mls @ 200 mls/hr IV ONETIME ONE Stop: 03/20/19 09:29 Last Admin: 03/20/19 09:34 Dose: 200 mls/hr Piperacillin Sod/Tazobactam (Sod 4.5 gm/ Sodium Chloride) 100 mls @ 25 mls/hr IV Q8H [facility] Lactated Ringer's (Ringers, Lactated) 1,000 mls @ 999 mls/hr IV .BOLUS ONE Stop: 03/20/19 10:02 Last Admin: 03/20/19 09:19 Dose: 999 mls/hr Vancomycin HCl 1.75 gm/ Sodium (Chloride) 500 mls @ 250 mls/hr IV Q24H [facility] Last Admin: 03/20/19 18:58 Dose: Not Given Gentamicin Sulfate 70 mg/ (Sodium Chloride) 101.75 mls @ 101.75 mls/hr IV Q12H [facility] Last Admin: 03/20/19 09:56 Dose: 101.75 mls/hr Norepinephrine Bitartrate 4 mg (/ Dextrose/Water) 250 mls @ 7.5 mls/hr IV TITRATE [facility]; Protocol Last Titration: 03/20/19 21:00 Dose: 0 mcg/min, 0 mls/hr Pantoprazole Sodium 80 mg/ (Sodium Chloride) 100 mls @ 10 mls/hr IV Q10H [facility] Last Admin: 03/21/19 11:43 Dose: Not Given Vancomycin HCl 1 gm/ Sodium (Chloride) 250 mls @ 250 mls/hr IV Q18H [facility] Last Admin: 03/21/19 09:49 Dose: Not Given Meropenem/Sodium Chloride 500 (mg/ Premix) 50 mls @ 100 mls/hr IV Q8H [facility] Last Admin: 03/21/19 01:47 Dose: 100 mls/hr Sodium Chloride (Normal Saline) 1,000 mls @ 150 mls/hr IV ASDIRECTED [facility] Last Infusion: 03/23/19 10:01 Dose: 25 mls/hr Meropenem/Sodium Chloride 500 (mg/ Premix) 50 mls @ 100 mls/hr IV Q6H [facility] Last Admin: 03/26/19 07:58 Dose: 100 mls/hr Vancomycin HCl 1 gm/Vancomycin HCl 250 mg/ Sodium Chloride 250 mls @ 166.667 mls/hr IV Q12H [facility] Last Admin: 03/23/19 21:57 Dose: 166.667 mls/hr Azithromycin 500 mg/ Sodium (Chloride) 250 mls @ 250 mls/hr IV Q24H [facility] Last Admin: 03/25/19 15:53 Dose: 250 mls/hr Calcium Gluconate 1 gm/ Sodium (Chloride) 110 mls @ 200 mls/hr IV Q6H [facility] Stop: 03/23/19 20:32 Last Admin: 03/23/19 19:35 Dose: 200 mls/hr Sodium Chloride (Normal Saline) 1,000 mls @ 50 mls/hr IV ASDIRECTED [facility] Sodium Chloride (Normal Saline) 1,000 mls @ 25 mls/hr IV ASDIRECTED [facility] Last Admin: 03/26/19 00:26 Dose: 25 mls/hr Calcium Gluconate 1 gm/ Sodium (Chloride) 110 mls @ 200 mls/hr IV ONETIME ONE Stop: 03/23/19 22:02 Last Admin: 03/23/19 22:27 Dose: 200 mls/hr Calcium Gluconate 1 gm/ Sodium (Chloride) 110 mls @ 200 mls/hr IV ONETIME ONE Stop: 03/23/19 22:32 Last Admin: 03/23/19 23:47 Dose: 200 mls/hr Vancomycin HCl 1 gm/ Sodium (Chloride) 250 mls @ 166.667 mls/hr IV Q12H [facility] Last Admin: 03/24/19 10:15 Dose: Not Given Vancomycin HCl 1 gm/ Sodium (Chloride) 250 mls @ 166.667 mls/hr IV Q12H [facility] Last Admin: 03/26/19 11:14 Dose: 166.667 mls/hr Magnesium Sulfate 4 gm/ Premix 50 mls @ 12.5 mls/hr IV ONETIME ONE Stop: 03/25/19 11:26 Last Admin: 03/25/19 08:31 Dose: 12.5 mls/hr Magnesium Sulfate 2 gm/ Premix 50 mls @ 25 mls/hr IV ONETIME ONE Stop: 03/25/19 21:59 Last Admin: 03/25/19 20:09 Dose: 25 mls/hr Ceftriaxone Sodium 2 gm/ (Sodium Chloride) 100 mls @ 200 mls/hr IV Q24H [facility] Last Admin: 03/26/19 13:52 Dose: 200 mls/hr Iopamidol (Isovue-300 (61%)) 100 ml IVPUSH ONETIME ONE Stop: 03/19/19 20:03 Last Admin: 03/20/19 03:41 Dose: Not Given Ketorolac Tromethamine (Toradol) 30 mg IVPUSH Q6H PRN PRN Reason: Pain Last Admin: 03/26/19 12:34 Dose: 30 mg Lorazepam (Ativan) 1 mg IVPUSH ONETIME ONE Stop: 03/20/19 00:39 Last Admin: 03/20/19 02:27 Dose: 1 mg Lorazepam (Ativan) 1 mg IV Q6H PRN PRN Reason: Anxiety Last Admin: 03/25/19 20:10 Dose: 1 mg Metoclopramide HCl (Reglan) 10 mg IVPUSH Q6H [facility] Last Admin: 03/26/19 17:25 Dose: Not Given Miscellaneous Information (Remove Patch) 1 ea TRDERM DAILY [facility] Last Admin: 03/26/19 08:06 Dose: Not Given Multivitamins (Thera) 1 each PO DAILY [facility] Last Admin: 03/26/19 08:03 Dose: 1 each Nicotine (Habitrol) 21 mg TRDERM DAILY [facility] Last Admin: 03/26/19 08:05 Dose: Not Given Ondansetron HCl (Zofran) 4 mg IVPUSH ONETIME ONE Stop: 03/19/19 20:01 Last Admin: 03/19/19 20:30 Dose: 4 mg Ondansetron HCl (Zofran) 4 mg IV Q6H PRN PRN Reason: Nausea/Vomiting Oxycodone HCl (Oxycodone) 5 mg PO Q4H PRN PRN Reason: Pain (moderate 4-6) Last Admin: 03/26/19 14:01 Dose: 5 mg Oxycodone HCl (Oxycontin) 10 mg PO Q12HR [facility] Last Admin: 03/21/19 08:03 Dose: 10 mg Oxycodone HCl (Oxycontin) 20 mg PO Q12HR [facility] Last Admin: 03/23/19 08:15 Dose: 20 mg Oxycodone HCl (Oxycontin) 10 mg PO ONETIME ONE Stop: 03/21/19 08:45 Last Admin: 03/21/19 09:28 Dose: 10 mg Oxycodone HCl (Oxycontin) 10 mg PO Q12HR [facility] Last Admin: 03/26/19 08:03 Dose: 10 mg Pantoprazole Sodium (Protonix) 40 mg PO Q12H [facility] Last Admin: 03/20/19 10:31 Dose: 40 mg Pantoprazole Sodium (Protonix) 40 mg PO DAILY@0700 [facility] Last Admin: 03/26/19 06:00 Dose: 40 mg Polyethylene Glycol (Miralax) 17 gm PO DAILY PRN PRN Reason: Constipation Polysaccharide Iron Complex (Ferrex 150) 150 mg PO DAILY [facility] Stop: 03/24/19 21:01 Last Admin: 03/24/19 20:35 Dose: 150 mg Potassium Chloride (Klor-Con M20) 60 meq PO ONETIME ONE Stop: 03/23/19 07:17 Last Admin: 03/23/19 08:14 Dose: 60 meq Potassium Chloride (Klor-Con 10) 60 meq PO ONETIME ONE Stop: 03/24/19 07:01 Last Admin: 03/24/19 06:34 Dose: 60 meq Potassium Chloride (Klor-Con 10) Confirm Administered Dose 60 meq .ROUTE .STK- MED ONE Stop: 03/24/19 06:34 Last Admin: 03/24/19 06:46 Dose: Not Given Senna/Docusate Sodium (Senna Plus) 1 tab PO BID PRN PRN Reason: Constipation Sodium Chloride (Saline Flush) 10 ml FLUSH ASDIRECTED PRN PRN Reason: Keep Vein Open Last Admin: 03/19/19 21:04 Dose: 10 ml Sodium Chloride (Saline Flush) 10 ml FLUSH ASDIRECTED PRN PRN Reason: Keep Vein Open Thiamine HCl (Vitamin B-1) 100 mg PO DAILY [facility] Last Admin: 03/26/19 08:03 Dose: 100 mg Tizanidine HCl (Zanaflex) 4 mg PO Q8H PRN PRN Reason: Spasms Last Admin: 03/25/19 04:55 Dose: 4 mg Vancomycin HCl (Pharmacy To Dose - Vancomycin) 1 dose .XX ASDIRECTED PRN PRN Reason: RX TO DOSE VANCO - My Orders Last 24 Hours: My Active Orders 03/26/19 11:33 Communication Order [RC] ROUTINE 03/26/19 12:30 CULTURE AFB AND SMEAR [MREF] Routine CULTURE BODY FLUID + SMEAR [RM] Routine MISC TEST DOMÍNGUEZ ONLY Routine 03/26/19 17:39 Ready for Discharge [RC] PER UNIT ROUTINE - Plan Plan:: The patient was seen and examined at bedside in concert with the medical student. The assessment and plans were discussed and agreed upon with me. Patient agreed with bedside thoracentesis after consent was obtained.
--- NOTE | 2019-03-26 19:04 | PCM.DCSUM1 ---
Discharge Summary - Hospital Course Free Text/Narrative:: This is a young white male with no significant past medical hx/o except for Smoking, Hx/o IVDU and Chronic ETOH User who presented to ED last night for evaluation of abdominal pain associated with nausea and vomiting that started a couple fop weeks ago after eating enchiladas. He states he has not been able to keep anything down. Per secondary sources, he also had some congestion, shortness of breath, epigastric pain, erythema and edema on right forearm/left foot and dry lips. He denies any chest pain or symptoms. He states he used IVD and his last injection was 3 months. He smokes about 1 pack a day and drinks ETOH regularly. His initial work up in ED showed significantly abnormal CBC and Chemistry. His UA was negative for UTI. His LA was 3.8 with a WBC of 24K. His chest x-ray report read as increased density posteriorly within both lungs. His Abdominal/ Pelvis CT scan report read as fluid within the colon and distal small bowel. Patient was admitted to ICU overnight for management of Sepsis. Diagnosis: Stroke: No Modified [place] Scale: No Symptoms at All Modified [place] Scale Score: 0 - Discharge Data Discharge Date: 03/26/19 Discharge Disposition: Against Medical Advice 07 Condition: Good - Referral to Home Health Primary Care Physician: PCP None - Patient Summary/Data Operative Procedure(s) Performed: Right Sided Thorcentesis Complications: Unknown, he left AMA Consults: Consultations 03/20/19 08:22 Consult to Case Management/Accounts Receivable Processor [CONS] Routine Consult to Spiritual Care [CONS] Routine OT Evaluation and Treatment [CONS] Routine PT Evaluation and Treatment [CONS] Routine 03/20/19 13:54 Consult to Physician [CONS] Urgent 03/24/19 18:58 Consult to Physician [CONS] Routine Labs Pending at D/C: None Planned Operative Procedure(s) after DC: None Hospital Course: Patient was primarily admitted for septic shock due to Gastroenteritis, CAP and SSTI. He was treated aggressively along with pressor drip, as well as triple intravenous antibiotics and he slowly improved on this regimen. However after he felt better status post thoracentesis, he elected to leave facility on his own accord. He knew he was not ready yet for discharge but elected to leave against medical advice. - Patient Instructions Diet: Usual Diet as Tolerated Activity: As Tolerated Driving: May Drive Today Showering/Bathing: May Shower Wound/Incision Care: Keep Operative Site/Wound Site Clean and Dry Other/Special Instructions: Patient left AMA - Discharge Plan Home Medications: Home Meds . [No Known Home Meds] 03/19/19 [History] Patient Handouts: Steps to Quit Smoking Referrals: PCP,None [Primary Care Provider] - - Discharge Summary/Plan Comment DC Time >30 min.: No Discharge Summary/Plan Comment: Patient left AMA - General Info Date of Service: 03/26/19 Admission Dx/Problem (Free Text: Admission Diagnosis/Problem Admission Diagnosis/Problem Sepsis Subjective Update: No significant overnight or acute issues. He is clinically much better - Review of Systems Systems Review Comment: ROS unable to obtain patient left AMA - Patient Data Vitals - Most Recent: Last Vital Signs Temp 36.6 C 03/26/19 16:00 Pulse 102 H 03/25/19 16:00 Resp 18 03/26/19 16:00 BP 101/74 03/26/19 16:00 Pulse Ox 92 L 03/26/19 16:00 Weight - Most Recent: 84.3 kg I&O - Last 24 hours: Intake & Output 03/26/19 03/26/19 03/26/19 06:59 14:59 22:59 Intake Total 1018 1423 374 Output Total 1100 3200 Balance -82 -1771 374 Lab Results - Last 24 hrs: Laboratory Results - last 24 hr 03/26/19 03/26/19 03/26/19 Range/Units 07:25 07:25 07:25 WBC 6.07 (4.23-9.07) K/mm3 RBC 2.68 L (4.63-6.08) M/mm3 Hgb 8.1 L (13.7-17.5) gm/dl Hct 25.4 L (40.1-51.0) % MCV 94.8 H (79.0-92.2) fl MCH 30.2 (25.7-32.2) pg MCHC 31.9 L (32.2-35.5) g/dl RDW Std Deviation 42.5 (35.1-43.9) fL Plt Count 290 (163-337) K/mm3 MPV 9.2 L (9.4-12.3) fl Neut % (Auto) 72.2 H (34.0-67.9) % Lymph % (Auto) 19.9 L (21.8-53.1) % Traverse % (Auto) 7.1 (5.3-12.2) % Eos % (Auto) 0.5 L (0.8-7.0) Baso % (Auto) 0.0 L (0.1-1.2) % Neut # (Auto) 4.38 (1.78-5.38) K/mm3 Lymph # (Auto) 1.21 L (1.32-3.57) K/mm3 Traverse # (Auto) 0.43 (0.30-0.82) K/mm3 Eos # (Auto) 0.03 L (0.04-0.54) K/mm3 Baso # (Auto) 0.00 L (0.01-0.08) K/mm3 APTT 39 H (22-31) SECONDS Sodium 134 L (136-145) mEq/L Potassium 4.7 (3.5-5.1) mEq/L Chloride 103 (98-107) mEq/L Carbon Dioxide 25 (21-32) mEq/L Anion Gap 10.7 (5-15) BUN 18 (7-18) mg/dL Creatinine 1.0 (0.7-1.3) mg/dL Est Cr Clr Drug Dosing 104.72 mL/min Estimated GFR (MDRD) > 60 (>60) mL/min BUN/Creatinine Ratio 18.0 (14-18) Glucose 97 (74-106) mg/dL Calcium 7.1 L (8.5-10.1) mg/dL Body Fluid Site Fluid Type Fluid Volume ML Fluid Color Fluid Appearance Fluid pH (4.5-10.0) Fluid WBC (0.20-0.60) k/mm*3 Fluid RBC (0.00-0.010) 10*6/uL Fluid Diff Comment Fluid Seg Neutrophils (0-25) % Fluid Lymphocytes (0-78) % Fluid Monocytes (0-71) % Fl Polymorphonucl Cell Fluid Glucose mg/dL Fluid Total Protein gm/dl Fluid Albumin Fluid LDH U/L Vancomycin Trough (10.0-20.0) 03/26/19 03/26/19 Range/Units 09:40 12:30 WBC (4.23-9.07) K/mm3 RBC (4.63-6.08) M/mm3 Hgb (13.7-17.5) gm/dl Hct (40.1-51.0) % MCV (79.0-92.2) fl MCH (25.7-32.2) pg MCHC (32.2-35.5) g/dl RDW Std Deviation (35.1-43.9) fL Plt Count (163-337) K/mm3 MPV (9.4-12.3) fl Neut % (Auto) (34.0-67.9) % Lymph % (Auto) (21.8-53.1) % Traverse % (Auto) (5.3-12.2) % Eos % (Auto) (0.8-7.0) Baso % (Auto) (0.1-1.2) % Neut # (Auto) (1.78-5.38) K/mm3 Lymph # (Auto) (1.32-3.57) K/mm3 Traverse # (Auto) (0.30-0.82) K/mm3 Eos # (Auto) (0.04-0.54) K/mm3 Baso # (Auto) (0.01-0.08) K/mm3 APTT (22-31) SECONDS Sodium (136-145) mEq/L Potassium (3.5-5.1) mEq/L Chloride (98-107) mEq/L Carbon Dioxide (21-32) mEq/L Anion Gap (5-15) BUN (7-18) mg/dL Creatinine (0.7-1.3) mg/dL Est Cr Clr Drug Dosing mL/min Estimated GFR (MDRD) (>60) mL/min BUN/Creatinine Ratio (14-18) Glucose (74-106) mg/dL Calcium (8.5-10.1) mg/dL Body Fluid Site Right lung Fluid Type Pleural fluid Fluid Volume 1224 ML Fluid Color Red Fluid Appearance Turbid Fluid pH 8 (4.5-10.0) Fluid WBC 4.35 H (0.20-0.60) k/mm*3 Fluid RBC 0.094 H (0.00-0.010) 10*6/uL Fluid Diff Comment TNP Fluid Seg Neutrophils 59.0 H (0-25) % Fluid Lymphocytes 30.0 (0-78) % Fluid Monocytes 11.0 (0-71) % Fl Polymorphonucl Cell Not Reportable Fluid Glucose 99 mg/dL Fluid Total Protein 3.1 gm/dl Fluid Albumin Cancelled Fluid LDH 622 U/L Vancomycin Trough 14.7 (10.0-20.0) MIKE Results - Last 24 hrs: Microbiology 03/26/19 12:30 Gram Stain - Final Pleural Fluid 03/26/19 12:30 ROSARIO Preparation - Final Other - Pleural Cavity, Unspecified 03/22/19 12:19 Aerobic Blood Culture - Preliminary Blood - Venous - Lab Draw NO GROWTH AFTER 4 DAYS Anaerobic Blood Culture - Preliminary NO GROWTH AFTER 4 DAYS 03/22/19 12:25 Aerobic Blood Culture - Preliminary Blood - Venous NO GROWTH AFTER 4 DAYS Anaerobic Blood Culture - Preliminary NO GROWTH AFTER 4 DAYS Med Orders - Current: Current Medications Acetaminophen (Tylenol) 975 mg PO Q4H PRN PRN Reason: Pain/Fever Last Admin: 03/24/19 08:37 Dose: 975 mg Albuterol/Ipratropium (Duoneb 3.0-0.5 Mg/3 Ml) 3 ml NEB Q4H PRN PRN Reason: Shortness Of Breath/wheezing Ascorbic Acid (Vitamin C) 500 mg PO BIDMEALS [facility] Last Admin: 03/26/19 16:04 Dose: 500 mg Azithromycin (Zithromax) 500 mg PO Q24H [facility] Last Admin: 03/26/19 17:14 Dose: Not Given Bisacodyl (Dulcolax) 5 mg PO DAILY PRN PRN Reason: Constipation Clonidine HCl (Catapres) 0.1 mg PO Q4H PRN PRN Reason: Agitation Diphenhydr/Magaldrate/Simeth/Lidoca (First-Mouthwash Blm Susp) 30 ml PO ASDIRECTED [facility] Last Admin: 03/22/19 07:58 Dose: 30 ml Docusate Sodium (Colace) 100 mg PO BID PRN PRN Reason: Constipation Enoxaparin Sodium (Lovenox) 40 mg SUBCUT Q24H [facility] Ferrous Sulfate (Ferrous Sulfate) 325 mg PO BIDMEALS [facility] Last Admin: 03/26/19 16:04 Dose: 325 mg Gabapentin (Neurontin) 100 mg PO TID [facility] Last Admin: 03/26/19 14:03 Dose: 100 mg Guaifenesin/Phenylephrine HCl (Robitussin Dm) 10 ml PO Q4H PRN PRN Reason: Cough Haloperidol Lactate (Haldol) 2 mg IM Q4H PRN PRN Reason: Agitation Hydromorphone HCl (Dilaudid) 0.5 mg IVPUSH Q8H PRN PRN Reason: Pain Last Admin: 03/25/19 20:56 Dose: 0.5 mg Promethazine HCl 6.25 mg/ (Sodium Chloride) 50.25 mls @ 100 mls/hr IV Q6H PRN PRN Reason: Nausea/Vomiting Norepinephrine Bitartrate 4 mg (/ Dextrose/Water) 250 mls @ 7.5 mls/hr IV TITRATE [facility]; Protocol Last Titration: 03/20/19 21:00 Dose: 0 mcg/min, 0 mls/hr Sodium Chloride (Normal Saline) 1,000 mls @ 25 mls/hr IV ASDIRECTED [facility] Last Admin: 03/26/19 00:26 Dose: 25 mls/hr Ceftriaxone Sodium 2 gm/ (Sodium Chloride) 100 mls @ 200 mls/hr IV Q24H [facility] Last Admin: 03/26/19 13:52 Dose: 200 mls/hr Ketorolac Tromethamine (Toradol) 30 mg IVPUSH Q6H PRN PRN Reason: Pain Last Admin: 03/26/19 12:34 Dose: 30 mg Lorazepam (Ativan) 1 mg IV Q6H PRN PRN Reason: Anxiety Last Admin: 03/25/19 20:10 Dose: 1 mg Metoclopramide HCl (Reglan) 10 mg IVPUSH Q6H [facility] Last Admin: 03/26/19 17:25 Dose: Not Given Miscellaneous Information (Remove Patch) 1 ea TRDERM DAILY [facility] Last Admin: 03/26/19 08:06 Dose: Not Given Multivitamins (Thera) 1 each PO DAILY [facility] Last Admin: 03/26/19 08:03 Dose: 1 each Nicotine (Habitrol) 21 mg TRDERM DAILY [facility] Last Admin: 03/26/19 08:05 Dose: Not Given Ondansetron HCl (Zofran) 4 mg IV Q6H PRN PRN Reason: Nausea/Vomiting Oxycodone HCl (Oxycodone) 5 mg PO Q4H PRN PRN Reason: Pain (moderate 4-6) Last Admin: 03/26/19 14:01 Dose: 5 mg Oxycodone HCl (Oxycontin) 10 mg PO Q12HR [facility] Last Admin: 03/26/19 08:03 Dose: 10 mg Pantoprazole Sodium (Protonix) 40 mg PO DAILY@0700 [facility] Last Admin: 03/26/19 06:00 Dose: 40 mg Polyethylene Glycol (Miralax) 17 gm PO DAILY PRN PRN Reason: Constipation Senna/Docusate Sodium (Senna Plus) 1 tab PO BID PRN PRN Reason: Constipation Sodium Chloride (Saline Flush) 10 ml FLUSH ASDIRECTED PRN PRN Reason: Keep Vein Open Thiamine HCl (Vitamin B-1) 100 mg PO DAILY [facility] Last Admin: 03/26/19 08:03 Dose: 100 mg Tizanidine HCl (Zanaflex) 4 mg PO Q8H PRN PRN Reason: Spasms Last Admin: 03/25/19 04:55 Dose: 4 mg Discontinued Medications Acetaminophen (Tylenol) 975 mg PO NOW ONE Stop: 03/19/19 22:18 Last Admin: 03/19/19 22:21 Dose: 975 mg Calcium Carbonate/Glycine (Tums) 1,000 mg PO TID [facility] Stop: 03/24/19 21:01 Last Admin: 03/24/19 20:27 Dose: 1,000 mg Calcium Gluconate (Calcium Gluconate) 2 gm IV ONETIME ONE Stop: 03/20/19 13:02 Last Admin: 03/20/19 13:48 Dose: 2 gm Calcium Gluconate (Calcium Gluconate) 1 gm IV ONETIME ONE Stop: 03/20/19 14:01 Last Admin: 03/20/19 14:09 Dose: Not Given Calcium Gluconate (Calcium Gluconate) 1 gm IV Q6HR PRN PRN Reason: Hypocaelcemia Calcium Gluconate (Calcium Gluconate) 1 gm IV Q6HR [facility] Stop: 03/24/19 00:01 Chlordiazepoxide HCl (Librium) 25 mg PO Q8H PRN PRN Reason: Withdrawal Symptoms Last Admin: 03/21/19 10:26 Dose: 25 mg Diatrizoate Meglum/Diatrizoate Sod (Gastrografin 37%) 60 ml PO ONETIME ONE Stop: 03/19/19 20:03 Last Admin: 03/20/19 03:41 Dose: Not Given Enoxaparin Sodium (Lovenox) 40 mg SUBCUT Q24H [facility] Last Admin: 03/22/19 18:18 Dose: 40 mg Enoxaparin Sodium (Lovenox) 30 mg SUBCUT Q24H [facility] Last Admin: 03/25/19 08:33 Dose: 30 mg Enoxaparin Sodium (Lovenox) 40 mg SUBCUT Q24H [facility] Folic Acid (Folic Acid) 1 mg PO DAILY [facility] Stop: 03/22/19 09:01 Last Admin: 03/22/19 08:07 Dose: 1 mg Furosemide (Lasix) 20 mg IVPUSH NOW ONE Stop: 03/23/19 09:47 Last Admin: 03/23/19 09:54 Dose: 20 mg Furosemide (Lasix) 20 mg IVPUSH NOW ONE Stop: 03/23/19 18:04 Last Admin: 03/23/19 18:13 Dose: 20 mg Furosemide (Lasix) 10 mg IVPUSH BIDDIURETIC JUANA Stop: 03/26/19 14:01 Last Admin: 03/25/19 05:26 Dose: 10 mg Furosemide (Lasix) 20 mg IVPUSH ONETIME ONE Stop: 03/25/19 18:01 Last Admin: 03/25/19 17:28 Dose: 20 mg Furosemide (Lasix) 20 mg IVPUSH DAILY [facility] Stop: 03/26/19 09:01 Last Admin: 03/26/19 08:04 Dose: 20 mg Gentamicin Sulfate (Pharmacy To Dose - Gentamicin) 0 dose .XX DAILY PRN PRN Reason: RX TO DOSE GENT Hydrocortisone Sodium Succinate (Solu-Cortef) 100 mg IVPUSH Q6H [facility] Last Admin: 03/22/19 09:16 Dose: Not Given Hydromorphone HCl (Dilaudid) 0.5 mg IVPUSH ONETIME ONE Stop: 03/19/19 23:44 Last Admin: 03/19/19 23:51 Dose: 0.5 mg Hydromorphone HCl (Dilaudid) 1 mg IVPUSH ONETIME ONE Stop: 03/20/19 00:33 Last Admin: 03/20/19 09:12 Dose: 1 mg Hydromorphone HCl (Dilaudid) 1 mg IVPUSH Q4H PRN PRN Reason: Pain Last Admin: 03/22/19 04:27 Dose: 1 mg Hydromorphone HCl (Dilaudid) 0.5 mg IVPUSH Q4H PRN PRN Reason: Pain Hydromorphone HCl (Dilaudid) 3 mg IVPUSH ONETIME ONE Stop: 03/26/19 11:33 Last Admin: 03/26/19 11:57 Dose: 3 mg Lactated Ringer's (Ringers, Lactated) 2,177 mls @ 1,000 mls/hr IV .BOLUS ONE Stop: 03/19/19 22:07 Last Admin: 03/19/19 20:30 Dose: 1,000 mls/hr Vancomycin HCl 1.75 gm/ Sodium (Chloride) 500 mls @ 250 mls/hr IV ONETIME ONE Stop: 03/19/19 19:59 Last Admin: 03/19/19 20:58 Dose: 250 mls/hr Lactated Ringer's (Ringers, Lactated) 1,000 mls @ 1,000 mls/hr IV .BOLUS ONE Stop: 03/19/19 22:13 Last Admin: 03/19/19 21:30 Dose: 1,000 mls/hr Potassium Chloride 10 meq/ (Premix) 100 mls @ 100 mls/hr IV ONETIME ONE Stop: 03/19/19 22:20 Last Admin: 03/19/19 22:08 Dose: 100 mls/hr Lactated Ringer's (Ringers, Lactated) 1,000 mls @ 150 mls/hr IV ASDIRECTED [facility] Last Admin: 03/19/19 22:56 Dose: 150 mls/hr Sodium Chloride (Normal Saline) 1,000 mls @ 100 mls/hr IV ASDIRECTED [facility] Stop: 03/21/19 00:30 Last Infusion: 03/20/19 17:56 Dose: 150 mls/hr Vancomycin HCl 1.75 gm/ Sodium (Chloride) 500 mls @ 250 mls/hr IV Q24H [facility] Lactated Ringer's (Ringers, Lactated) 1,000 mls @ 999 mls/hr IV .BOLUS ONE Stop: 03/20/19 09:26 Last Admin: 03/20/19 09:15 Dose: 999 mls/hr Piperacillin Sod/Tazobactam (Sod 4.5 gm/ Sodium Chloride) 100 mls @ 200 mls/hr IV ONETIME ONE Stop: 03/20/19 09:29 Last Admin: 03/20/19 09:34 Dose: 200 mls/hr Piperacillin Sod/Tazobactam (Sod 4.5 gm/ Sodium Chloride) 100 mls @ 25 mls/hr IV Q8H [facility] Lactated Ringer's (Ringers, Lactated) 1,000 mls @ 999 mls/hr IV .BOLUS ONE Stop: 03/20/19 10:02 Last Admin: 03/20/19 09:19 Dose: 999 mls/hr Vancomycin HCl 1.75 gm/ Sodium (Chloride) 500 mls @ 250 mls/hr IV Q24H [facility] Last Admin: 03/20/19 18:58 Dose: Not Given Gentamicin Sulfate 70 mg/ (Sodium Chloride) 101.75 mls @ 101.75 mls/hr IV Q12H [facility] Last Admin: 03/20/19 09:56 Dose: 101.75 mls/hr Pantoprazole Sodium 80 mg/ (Sodium Chloride) 100 mls @ 10 mls/hr IV Q10H [facility] Last Admin: 03/21/19 11:43 Dose: Not Given Vancomycin HCl 1 gm/ Sodium (Chloride) 250 mls @ 250 mls/hr IV Q18H [facility] Last Admin: 03/21/19 09:49 Dose: Not Given Meropenem/Sodium Chloride 500 (mg/ Premix) 50 mls @ 100 mls/hr IV Q8H [facility] Last Admin: 03/21/19 01:47 Dose: 100 mls/hr Sodium Chloride (Normal Saline) 1,000 mls @ 150 mls/hr IV ASDIRECTED [facility] Last Infusion: 03/23/19 10:01 Dose: 25 mls/hr Meropenem/Sodium Chloride 500 (mg/ Premix) 50 mls @ 100 mls/hr IV Q6H [facility] Last Admin: 03/26/19 07:58 Dose: 100 mls/hr Vancomycin HCl 1 gm/Vancomycin HCl 250 mg/ Sodium Chloride 250 mls @ 166.667 mls/hr IV Q12H [facility] Last Admin: 03/23/19 21:57 Dose: 166.667 mls/hr Azithromycin 500 mg/ Sodium (Chloride) 250 mls @ 250 mls/hr IV Q24H [facility] Last Admin: 03/25/19 15:53 Dose: 250 mls/hr Calcium Gluconate 1 gm/ Sodium (Chloride) 110 mls @ 200 mls/hr IV Q6H [facility] Stop: 03/23/19 20:32 Last Admin: 03/23/19 19:35 Dose: 200 mls/hr Sodium Chloride (Normal Saline) 1,000 mls @ 50 mls/hr IV ASDIRECTED [facility] Calcium Gluconate 1 gm/ Sodium (Chloride) 110 mls @ 200 mls/hr IV ONETIME ONE Stop: 03/23/19 22:02 Last Admin: 03/23/19 22:27 Dose: 200 mls/hr Calcium Gluconate 1 gm/ Sodium (Chloride) 110 mls @ 200 mls/hr IV ONETIME ONE Stop: 03/23/19 22:32 Last Admin: 03/23/19 23:47 Dose: 200 mls/hr Vancomycin HCl 1 gm/ Sodium (Chloride) 250 mls @ 166.667 mls/hr IV Q12H [facility] Last Admin: 03/24/19 10:15 Dose: Not Given Vancomycin HCl 1 gm/ Sodium (Chloride) 250 mls @ 166.667 mls/hr IV Q12H [facility] Last Admin: 03/26/19 11:14 Dose: 166.667 mls/hr Magnesium Sulfate 4 gm/ Premix 50 mls @ 12.5 mls/hr IV ONETIME ONE Stop: 03/25/19 11:26 Last Admin: 03/25/19 08:31 Dose: 12.5 mls/hr Magnesium Sulfate 2 gm/ Premix 50 mls @ 25 mls/hr IV ONETIME ONE Stop: 03/25/19 21:59 Last Admin: 03/25/19 20:09 Dose: 25 mls/hr Iopamidol (Isovue-300 (61%)) 100 ml IVPUSH ONETIME ONE Stop: 03/19/19 20:03 Last Admin: 03/20/19 03:41 Dose: Not Given Lorazepam (Ativan) 1 mg IVPUSH ONETIME ONE Stop: 03/20/19 00:39 Last Admin: 03/20/19 02:27 Dose: 1 mg Ondansetron HCl (Zofran) 4 mg IVPUSH ONETIME ONE Stop: 03/19/19 20:01 Last Admin: 03/19/19 20:30 Dose: 4 mg Oxycodone HCl (Oxycontin) 10 mg PO Q12HR [facility] Last Admin: 03/21/19 08:03 Dose: 10 mg Oxycodone HCl (Oxycontin) 20 mg PO Q12HR [facility] Last Admin: 03/23/19 08:15 Dose: 20 mg Oxycodone HCl (Oxycontin) 10 mg PO ONETIME ONE Stop: 03/21/19 08:45 Last Admin: 03/21/19 09:28 Dose: 10 mg Pantoprazole Sodium (Protonix) 40 mg PO Q12H [facility] Last Admin: 03/20/19 10:31 Dose: 40 mg Polysaccharide Iron Complex (Ferrex 150) 150 mg PO DAILY JUANA Stop: 03/24/19 21:01 Last Admin: 03/24/19 20:35 Dose: 150 mg Potassium Chloride (Klor-Con M20) 60 meq PO ONETIME ONE Stop: 03/23/19 07:17 Last Admin: 03/23/19 08:14 Dose: 60 meq Potassium Chloride (Klor-Con 10) 60 meq PO ONETIME ONE Stop: 03/24/19 07:01 Last Admin: 03/24/19 06:34 Dose: 60 meq Potassium Chloride (Klor-Con 10) Confirm Administered Dose 60 meq .ROUTE .STK- MED ONE Stop: 03/24/19 06:34 Last Admin: 03/24/19 06:46 Dose: Not Given Sodium Chloride (Saline Flush) 10 ml FLUSH ASDIRECTED PRN PRN Reason: Keep Vein Open Last Admin: 03/19/19 21:04 Dose: 10 ml Vancomycin HCl (Pharmacy To Dose - Vancomycin) 1 dose .XX ASDIRECTED PRN PRN Reason: RX TO DOSE VANCO - Exam Physical Findings Comments:: Unable to Perform, patient left AMA
== END 2019-03-26 17:30 | disposition left against medical advice (07) | DRG 871 ==
LOC: JD.ED 19:37 → JD.ICU 03-20 00:20
PROVIDERS: ADMIT Internal Medicine; ATTEND Internal Medicine
PROC: HZ2ZZZZ Detoxification Services for Substance Abuse Treatment (ICD-10-PCS; principal; 2019-03-20)
PROC: 05HM33Z Insertion of Infusion Device into Right Internal Jugular Vein, Percutaneous Approach (ICD-10-PCS; 2019-03-20)
PROC: B543ZZA Ultrasonography of Right Jugular Veins, Guidance (ICD-10-PCS; 2019-03-20)
PROC: 0W993ZZ Drainage of Right Pleural Cavity, Percutaneous Approach (ICD-10-PCS; 2019-03-26)
DX: A41.9 Sepsis, unspecified organism (principal); R65.21 Severe sepsis with septic shock; K85.90 Acute pancreatitis without necrosis or infection, unspecified; J18.1 Lobar pneumonia, unspecified organism; N17.0 Acute kidney failure with tubular necrosis; L03.116 Cellulitis of left lower limb; E87.1 Hypo-osmolality and hyponatremia; R04.2 Hemoptysis; K92.0 Hematemesis; J90 Pleural effusion, not elsewhere classified; J98.11 Atelectasis; K56.699 Other intestinal obstruction unspecified as to partial versus complete obstruction; E46 Unspecified protein-calorie malnutrition; E87.2 Acidosis; K52.9 Noninfective gastroenteritis and colitis, unspecified; L08.9 Local infection of the skin and subcutaneous tissue, unspecified; F17.200 Nicotine dependence, unspecified, uncomplicated; D69.6 Thrombocytopenia, unspecified; E87.6 Hypokalemia; E87.8 Other disorders of electrolyte and fluid balance, not elsewhere classified; E83.51 Hypocalcemia; R74.0 Nonspecific elevation of levels of transaminase and lactic acid dehydrogenase [LDH]; M25.521 Pain in right elbow; M25.522 Pain in left elbow; D53.9 Nutritional anemia, unspecified; G89.4 Chronic pain syndrome; Z72.89 Other problems related to lifestyle; Z68.27 Body mass index [BMI] 27.0-27.9, adult
CPT/HCPCS: 36415; 36569; 51701; 51702; 70450; 70450-26; 71045; 71045-26; 71046; 71046-26; 71250; 71250-26; 73090-26-LT; 73090-26-RT; 73090-LT; 73090-RT; 74018; 74018-26; 74176; 74176-26; 76770; 76770-26; 76942; 80048; 80053; 80202; 80306; 81001; 82533; 82945; 83540; 83605; 83615; 83690; 83735; 83986; 84145; 84157; 84466; 85025; 85730; 86140; 86738; 87040; 87070; 87077; 87181; 87184; 87186; 87205; 87220; 87899; 89050; 93005; 93306; 94761; 96361; 96365; 96366; 96368; 96375; 96376; 97110-GO; 97110-GP; 97116-GP; 97162-GP; 97167-GO; 97530-GO; 97530-GP; 99285; 99285-25; A9270-GY; C1729; C9113; G0480; J0456; J0610; J0696; J1170; J1580; J1650; J1720; J1885; J2060; J2185; J2405; J2543; J2765; J3370; J3475; J3480; J7030; J7040; J7050; J7060; J7120; Q9963